=== PATIENT | female | born 2000 | race Caucasian/White ===

== ENCOUNTER 2023-05-31 12:31 | Emergency (ER) | payer BC, SELFPAY ==
[2023-05-31 12:40] VITALS: BP 128/70; PULSE 88; RESP 19; TEMP 36.9; O2SAT 98; BMI 46.5
--- NOTE | 2023-05-31 12:51 | EXP.UTC ---
Discharge Plan Disposition Patient Disposition: Home, Self-Care Condition: Good Prescriptions Prescriptions: New propranolol 80 mg tablet 80 mg PO DAILY Qty: 30 0RF fluconazole [Diflucan] 100 mg tablet 100 mg PO DAILY Qty: 1 0RF nystatin 100,000 unit/gram powder 1 applic topical BID Qty: 15 0RF Continued propranolol 80 mg capsule,extended release 24 hr 80 mg PO DAILY 30 Days Qty: 30 0RF Referrals Follow up/Referrals: Provider,Referral, MD [Primary Care Provider] - See instructions Activity Restrictions/Add. Instructions Additional Instructions/Restrictions: follow up with pcp meds as ordered Clinical Impressions Clinical Impression: Vaginal yeast infection, Skin yeast infection, Anxiety Stand Alone Forms Stand Alone Forms: Work/School Release Instructions Patient Instructions: DI for Yeast Infection-Skin, DI for Vaginal Yeast Infection, DI for Anxiety -- Adult Discharge ED Provider: Janette ([facility] [facility] [place] Stated complaint: anxiety, shaky Mode of Arrival: Ambulatory Source of Information: Patient Limitations: No Limitations Time Seen by Provider: 05/31/23 12:52 Description of Symptoms (Recalled from Triage Doc. by RN): PATIENT C/O RASH UNDER ABDOMEN AND POSSIBLE YEAST INFECTION X 2 DAYS HEENT Symptoms (Recalled from RN notes): No Resp Symptoms (Recalled from RN notes): No Skin Symptoms (Recalled from RN notes): Yes MS Symptoms (Recalled from RN notes): No Functional Status (Recalled from RN notes): WNL History of Present Illness Provider Complaint: 23 yr old female presents for a vaginal yeast infection- itching, no odor- yeast pedro abd skin folds, and needs her anxiety meds refilled Related Data Previous Rx's Medication Instructions Recorded fluconazole 100 mg tablet 100 mg PO DAILY #1 tab 05/31/23 (Diflucan) nystatin 100,000 unit/gram topical 1 applic topical BID #15 grams 05/31/23 powder propranolol 80 mg capsule,24 80 mg PO DAILY Anxiety 30 days #30 05/31/23 hr,extended release caps propranolol 80 mg tablet 80 mg PO DAILY #30 tabs 05/31/23 Allergies Allergy/AdvReac Type Severity Reaction Status Date / Time No Known Allergies Allergy Verified 05/31/23 12:51 Worker's Comp Is this a Worker's Comp case?: No [facility] Disclaimer: The information contained in this section may have been updated after the patient was seen, as this information can be updated by other users. 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) Smoking Status: Never smoker alcohol intake: never current occupational status: employed Travel in the last 8 weeks: None ROS Obtained: Yes All systems reviewed & no additional complaints except as documented Constitutional Constitutional: Reports system reviewed and no additional complaints, except as documented Eyes Eyes: Reports system reviewed and no additional complaints, except as documented ENT Ears, Nose, Mouth, and Throat: Reports system reviewed and no additional complaints, except as documented Cardiovascular Cardiovascular: Reports system reviewed and no additional complaints, except as documented Respiratory Respiratory: Reports system reviewed and no additional complaints, except as documented Musculoskeletal Musculoskeletal: Reports system reviewed and no additional complaints, except as documented Integumentary/Breasts Skin/Breast: Reports system reviewed and no additional complaints, except as documented, Reports as per HPI and Reports rash Neurologic Neurologic: Reports system reviewed and no additional complaints, except as documented Allergic/Immunologic Allergic/Immunologic: Reports system reviewed and no additional complaints, except as documented Physical Exam General General appearance: alert and in no apparent distre
[2023-05-31 12:54] VITALS: BP 128/70; PULSE 88; RESP 19; TEMP 36.9; O2SAT 98
== END 2023-05-31 13:08 | disposition home or self-care (01) ==
PROVIDERS: Emergency Provider Nurse Practitioner Family
DX: B37.31 Acute candidiasis of vulva and vagina (principal); B37.2 Candidiasis of skin and nail; F41.9 Anxiety disorder, unspecified; I10 Essential (primary) hypertension; F32.A Depression, unspecified
CPT/HCPCS: 99204; 99212; G0463

== ENCOUNTER 2023-06-23 23:04 | Emergency (ER) | payer BC, SELFPAY ==
[2023-06-23 23:19] VITALS: BP 143/68; PULSE 99; RESP 16; TEMP 36.6; O2SAT 99; BMI 47.9
[2023-06-23 23:36] LABS: Microscopic, Urine URINE MICROSCOPIC (MICROSCOPIC)
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
[2023-06-23 23:45] LABS: Appearance,Urine SL CLOUDY (Clear); Bilirubin,Urine Negative (Negative); Blood, Urine 3+ (Negative); Color,Urine STRAW (Yellow); Glucose,Urine (UA) Negative (Negative); Ketones,Urine Negative (Negative); Leukocyte Esterase,Urine 3+ (Negative); Nitrate,Urine Negative (Negative); Protein,Urine Negative (Negative); Specific Gravity, Urine <= 1.005 (1.005-1.030); Urobilinogen,Urine 0.2 EU/dl (0.2)
[2023-06-23 23:47] LABS: Urine Pregnancy, HCG Qual. Negative (Negative)
[2023-06-24 00:08] LABS: Bacteria,Urine 1+ /lpf; WBC,Urine TNTC #/hpf (0-3)
[2023-06-24 00:51] VITALS: BP 147/94; PULSE 76; RESP 16; TEMP 36.6; O2SAT 99
== END 2023-06-24 00:57 | disposition home or self-care (01) ==
PROVIDERS: Emergency Provider Emergency Medicine
DX: R10.2 Pelvic and perineal pain (principal); R30.0 Dysuria; F41.9 Anxiety disorder, unspecified; F32.A Depression, unspecified; I10 Essential (primary) hypertension; F17.200 Nicotine dependence, unspecified, uncomplicated
CPT/HCPCS: 81001; 81025; 87086; 87088; 87186; 99284

== ENCOUNTER 2023-06-25 17:06 | Emergency (ER) | payer BC, SELFPAY ==
--- NOTE | 2023-06-25 17:11 | HMH.EDGENADL ---
Discharge Plan Disposition Patient Disposition: Home, Self-Care Condition: Good Prescriptions Prescriptions: New ondansetron HCl 4 mg tablet 4 mg PO Q8H PRN (Reason: nausea and vomiting) 5 Days Qty: 30 0RF No Action propranolol 80 mg capsule,extended release 24 hr 80 mg PO DAILY 30 Days Qty: 30 0RF propranolol 80 mg tablet 80 mg PO DAILY Qty: 30 0RF fluconazole [Diflucan] 100 mg tablet 100 mg PO DAILY Qty: 1 0RF nystatin 100,000 unit/gram powder 1 applic topical BID Qty: 15 0RF nitrofurantoin monohyd/m-cryst [Macrobid] 100 mg capsule 100 mg PO BID 5 Days Qty: 10 0RF Rx Instructions: must administer with a meal/food Referrals Follow up/Referrals: Provider,Referral, MD [Primary Care Provider] - See instructions Activity Restrictions/Add. Instructions Additional Instructions/Restrictions: Please follow-up with your primary care provider. Please return to the emergency department if you develop any new or worsening symptoms or become concerned for your health. Please take Zofran as needed for nausea and vomiting at home. Clinical Impressions Clinical Impression: Nausea and vomiting, Painful menstrual periods, Heavy menstrual bleeding Stand Alone Forms Stand Alone Forms: Work/School Release Instructions Patient Instructions: DI for Urinary Tract Infection (UTI), DI for Urinary Tract Infection in Children Discharge ED Provider: Sourav Sawyer General Adult HPI General Chief complaint: Urogenital-Female Stated complaint: PCOS severe cramps heavy bleeding Time Seen by Provider: 06/25/23 17:11 History of Present Illness HPI narrative: 23-year-old female reported history of PCOS, endometriosis, recent diagnosis of UTI presents with symptoms consistent with patient's menstrual cycle. She reports onset of vaginal bleeding, blood through her pants at work, patient also has associated abdominal pain nausea vomiting and headache. She reports this is consistent with her baseline menstrual symptoms though is somewhat more severe. Reports no p.o. tolerance at this time. Reports that she has not taken any medication to help at this time. Last menstrual period approximately 1 month ago, patient is sexually active, denies concern for STDs. Patient was recently seen for UTI and was discharged with antibiotics. Related Data Previous Rx's Medication Instructions Recorded fluconazole 100 mg tablet 100 mg PO DAILY #1 tab 05/31/23 (Diflucan) nystatin 100,000 unit/gram topical 1 applic topical BID #15 grams 05/31/23 powder propranolol 80 mg capsule,24 80 mg PO DAILY Anxiety 30 days #30 05/31/23 hr,extended release caps propranolol 80 mg tablet 80 mg PO DAILY #30 tabs 05/31/23 nitrofurantoin 100 mg PO BID 5 days #10 caps 06/24/23 monohydrate/macrocrystals 100 mg capsule (Macrobid) ondansetron HCl 4 mg tablet 4 mg PO Q8H PRN nausea and 06/25/23 vomiting 5 days #30 tabs Allergies Allergy/AdvReac Type Severity Reaction Status Date / Time Penicillins Allergy Severe Anaphylaxis Verified 06/23/23 23:43 [facility] Disclaimer: The information contained in this section may have been updated after the patient was seen, as this information can be updated by other users. 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 Depression Hypertension Migraine Urinary tract infection Social History (Updated 05/31/23 @ 13:05 by [place] Savage ([facility]), MACHINE SPLITTER) Smoking Status: Current every day smoker alcohol intake: never current occupational status: employed Travel in the last 8 weeks: None ROS Obtained: Yes All systems reviewed & no additional complaints except as documented Physical Exam General General appearance: alert and anxious Head Head exam: atraumatic and normocephalic Eye Eye exam: Present normal appearance, PERRL and EOMI ENT ENT exam: Present normal oropharynx and normal external ear exam Neck Neck exam: Present nor
[2023-06-25 17:22] VITALS: BP 126/106; PULSE 45; RESP 16; TEMP 36.5; O2SAT 100; BMI 47.9
[2023-06-25 18:00] LABS: Basophils % 0.3 % (0.1-2.0); Eosinophils # 0.1 K/mm3 (0.0-0.4); Eosinophils % 0.7 % (0.1-12.0); Hematocrit 45.6 % (37.0-47.0); Hemoglobin 15.3 g/dL (12.2-16.2); Lymphocytes # 2.1 K/mm3 (0.7-4.5); Lymphocytes % 17.7 % (10-50); Mean Corpuscular HGB Conc 33.6 g/dL (31.8-35.4); Mean Corpuscular Hemoglobin 30.2 pg (27.0-31.2); Mean Corpuscular Volume 89.7 fl (81-99); Mean Platelet Volume 9.1 fl (7.4-10.4); Monocytes # 0.4 K/mm3 (0.1-1.0); Monocytes % 3.4 % (1.7-9.3); Neutrophils # 9.2 K/mm3 (1.8-7.8); Neutrophils % 77.8 % (37.0-80.0); Platelet Count 320 K/mm3 (142-424); Red Blood Count 5.09 M/mm3 (4.20-5.40); Red Cell Distribution Width 13.1 % (11.5-17.5); White Blood Count 11.8 K/mm3 (4.8-10.8)
[2023-06-25 18:01] VITALS: BP 126/81; PULSE 47; O2SAT 99
[2023-06-25 18:03] LABS: Chloride 101 mmol/L (98-107); Potassium 3.4 mmoL/L (3.5-5.1); Sodium 138 mmol/L (136-145)
[2023-06-25 18:06] LABS: Alanine Aminotransferase 35 U/L (12-78); Albumin Level 3.9 g/dl (3.5-5.0); Albumin/Globulin Ratio 1.3 (1.1-1.8); Alkaline Phosphatase 53 U/L (38-126); Anion Gap 12.4 mEq/L (5-15); Aspartate Amino Transferase 29 U/L (14-36); Bilirubin,Total 0.8 mg/dl (0.2-1.3); Blood Urea Nitrogen 8 mg/dl (7-17); Calcium 9.2 mg/dl (8.4-10.2); Carbon Dioxide 28 mmol/L (22.0-30.0); Creatinine Clearance Estimated 99 mL/min (50-200); Estimated Glomerular Filt Rate 90 ml/min (>60); GFR (African American) 109 ML/MIN (>60); Globulin 2.9 g/dL (1.3-3.2); Glucose 116 mg/dl (74-100); Total Protein,Serum 6.8 g/dl (6.3-8.2)
[2023-06-25 18:07] LABS: HCG Qualitative, Serum Negative (Negative)
[2023-06-25 19:13] VITALS: BP 106/79; PULSE 62; RESP 18; TEMP 36.7
== END 2023-06-25 19:20 | disposition home or self-care (01) ==
PROVIDERS: Emergency Provider Emergency Medicine
DX: N92.0 Excessive and frequent menstruation with regular cycle (principal); R10.9 Unspecified abdominal pain; R11.2 Nausea with vomiting, unspecified; R51.9 Headache, unspecified; E28.2 Polycystic ovarian syndrome; F41.9 Anxiety disorder, unspecified; F32.A Depression, unspecified; F17.200 Nicotine dependence, unspecified, uncomplicated
CPT/HCPCS: 80053; 84703; 85025; 96361; 96374; 96375; 99284; J2405

== ENCOUNTER 2023-07-04 15:03 | Emergency (ER) | payer BC, SELFPAY ==
[2023-07-04 15:04] VITALS: BP 109/69; PULSE 74; RESP 18; TEMP 36.6; O2SAT 97; BMI 46.1
--- NOTE | 2023-07-04 15:13 | EXP.UTC ---
Discharge Plan Disposition Patient Disposition: Home, Self-Care Prescriptions Prescriptions: New hydroxyzine HCl 50 mg tablet 50 mg PO TID Qty: 42 0RF No Action propranolol 80 mg capsule,extended release 24 hr 80 mg PO DAILY 30 Days Qty: 30 0RF propranolol 80 mg tablet 80 mg PO DAILY Qty: 30 0RF fluconazole [Diflucan] 100 mg tablet 100 mg PO DAILY Qty: 1 0RF nystatin 100,000 unit/gram powder 1 applic topical BID Qty: 15 0RF nitrofurantoin monohyd/m-cryst [Macrobid] 100 mg capsule 100 mg PO BID 5 Days Qty: 10 0RF Rx Instructions: must administer with a meal/food ondansetron HCl 4 mg tablet 4 mg PO Q8H PRN (Reason: nausea and vomiting) 5 Days Qty: 30 0RF Referrals Follow up/Referrals: Provider,Referral, MD [Primary Care Provider] - See instructions Activity Restrictions/Add. Instructions Additional Instructions/Restrictions: Take the medications as directed. Follow up with your regular doctor. We will give you a list of regular doctors, please call and get an appointment. GO TO THE ER FOR ANY WORSENING SYMPTOMS Clinical Impressions Clinical Impression: Anxiety Stand Alone Forms Stand Alone Forms: Work/School Release Discharge ED Provider: Ascencion Alcocer [facility] General Stated complaint: emotional, shakey, dizzy, vomiting Time Seen by Provider: 07/04/23 15:13 History of Present Illness Provider Complaint: She states that she has a long history of anxiety. She usually takes hydroxyzine 50 mg tid for this. She has recently moved here from [place]. Her pcp is back in [place]. She has not been able to f/u to get refills on this medication. She ran out yesterday and she has been very anxious since then. She has been on this dose of hydroxyzine for the past several years. She states that she does fine as long as she has her hydroxyzine to take. She denies any SI or HI. Related Data Previous Rx's Medication Instructions Recorded fluconazole 100 mg tablet 100 mg PO DAILY #1 tab 05/31/23 (Diflucan) nystatin 100,000 unit/gram topical 1 applic topical BID #15 grams 05/31/23 powder propranolol 80 mg capsule,24 80 mg PO DAILY Anxiety 30 days #30 05/31/23 hr,extended release caps propranolol 80 mg tablet 80 mg PO DAILY #30 tabs 05/31/23 nitrofurantoin 100 mg PO BID 5 days #10 caps 06/24/23 monohydrate/macrocrystals 100 mg capsule (Macrobid) ondansetron HCl 4 mg tablet 4 mg PO Q8H PRN nausea and 06/25/23 vomiting 5 days #30 tabs hydroxyzine HCl 50 mg tablet 50 mg PO TID #42 tabs 07/04/23 Allergies Allergy/AdvReac Type Severity Reaction Status Date / Time Penicillins Allergy Severe Anaphylaxis Verified 06/23/23 23:43 [facility] Disclaimer: The information contained in this section may have been updated after the patient was seen, as this information can be updated by other users. 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 , [employer]) Anxiety Depression Hypertension Migraine Urinary tract infection Social History (Updated 05/31/23 @ 13:05 by [place] Savage ([facility] [employer]) Smoking Status: Current every day smoker alcohol intake: never current occupational status: employed Travel in the last 8 weeks: None ROS Obtained: Yes All systems reviewed & no additional complaints except as documented Constitutional Constitutional: Denies chills and Denies fever(s) Eyes Eyes: Denies eye discharge ENT Ears, Nose, Mouth, and Throat: Denies dizziness, Denies otalgia and Denies sore throat Cardiovascular Cardiovascular: Denies chest pain Respiratory Respiratory: Denies shortness of breath, Denies chest congestion, Denies cough, Denies stridor and Denies wheezing Gastrointestinal Gastrointestingal: Denies nausea or vomiting Musculoskeletal Musculoskeletal: Reports system reviewed and no additional complaints, except as documented and Denies arthralgias Integumentary/Breasts Skin/Breast: Denies rash Neurologic Neur
[2023-07-04 15:59] VITALS: BP 109/69; PULSE 74; RESP 18; TEMP 36.6; O2SAT 97
== END 2023-07-04 16:00 | disposition home or self-care (01) ==
PROVIDERS: Emergency Provider Nurse Practitioner Family
DX: F41.1 Generalized anxiety disorder (principal); F17.210 Nicotine dependence, cigarettes, uncomplicated; I10 Essential (primary) hypertension; F32.A Depression, unspecified
CPT/HCPCS: 99212; 99214; G0463

== ENCOUNTER 2023-07-06 07:09 | Emergency (ER) | payer BC, SELFPAY ==
[2023-07-06 07:11] VITALS: BP 114/79; PULSE 75; RESP 18; TEMP 36.7; O2SAT 99; BMI 46.0
[2023-07-06 07:28] LABS: Microscopic, Urine URINE MICROSCOPIC (MICROSCOPIC)
[2023-07-06 07:30] LABS: Appearance,Urine CLOUDY (Clear); Bilirubin,Urine Negative (Negative); Blood, Urine 3+ (Negative); Color,Urine AMBER (Yellow); Glucose,Urine (UA) Negative (Negative); Ketones,Urine Negative (Negative); Leukocyte Esterase,Urine 2+ (Negative); Nitrate,Urine Negative (Negative); Protein,Urine 2+ (Negative); Specific Gravity, Urine >= 1.030 (1.005-1.030); Urobilinogen,Urine 0.2 EU/dl (0.2)
[2023-07-06 07:36] LABS: Urine Pregnancy, HCG Qual. Negative (Negative)
--- NOTE | 2023-07-06 07:42 | HMH.EDGENADL ---
Discharge Plan Disposition Patient Disposition: Home, Self-Care Prescriptions Prescriptions: New cefdinir 300 mg capsule 300 mg PO BID 7 Days Qty: 14 0RF No Action propranolol 80 mg capsule,extended release 24 hr 80 mg PO DAILY 30 Days Qty: 30 0RF propranolol 80 mg tablet 80 mg PO DAILY Qty: 30 0RF fluconazole [Diflucan] 100 mg tablet 100 mg PO DAILY Qty: 1 0RF nystatin 100,000 unit/gram powder 1 applic topical BID Qty: 15 0RF nitrofurantoin monohyd/m-cryst [Macrobid] 100 mg capsule 100 mg PO BID 5 Days Qty: 10 0RF Rx Instructions: must administer with a meal/food ondansetron HCl 4 mg tablet 4 mg PO Q8H PRN (Reason: nausea and vomiting) 5 Days Qty: 30 0RF hydroxyzine HCl 50 mg tablet 50 mg PO TID Qty: 42 0RF Referrals Follow up/Referrals: Provider,Referral, MD [Primary Care Provider] - See instructions Activity Restrictions/Add. Instructions Additional Instructions/Restrictions: Please follow-up with primary care doctor in 2 to 3 days to make sure that you are improving. Return with any high fevers or worsening symptoms etc. Clinical Impressions Clinical Impression: Urinary tract infection Instructions Patient Instructions: DI for Urinary Tract Infection (UTI), DI for Urinary Tract Infection in Children Discharge ED Provider: Sourav Sawyer General Adult HPI General Chief complaint: Urogenital-Female Stated complaint: poss Uti Time Seen by Provider: 07/06/23 07:34 Mode of Arrival: Ambulatory Source of Information: Patient Limitations: No Limitations Description of Symptoms (Recalled from ER Triage Doc. by RN): pt presents to ED c/o uti. pt states she has had a UTI recently and finished Macrobid but feels as if her UTI didn't go away and is worse. pt reports pain in low-mid back. History of Present Illness HPI narrative: 23-year-old female here with dysuria and hematuria for the last 12 days. She was recently diagnosed with a urinary tract infection which grew Citrobacter which was largely pansensitive on her susceptibilities. She states she was given nitrofurantoin and she took this for 5 days and did not have any significant improvement in her symptoms. She denies any fevers still is having some hematuria. No flank pain. Related Data Previous Rx's Medication Instructions Recorded fluconazole 100 mg tablet 100 mg PO DAILY #1 tab 05/31/23 (Diflucan) nystatin 100,000 unit/gram topical 1 applic topical BID #15 grams 05/31/23 powder propranolol 80 mg capsule,24 80 mg PO DAILY Anxiety 30 days #30 05/31/23 hr,extended release caps propranolol 80 mg tablet 80 mg PO DAILY #30 tabs 05/31/23 nitrofurantoin 100 mg PO BID 5 days #10 caps 06/24/23 monohydrate/macrocrystals 100 mg capsule (Macrobid) ondansetron HCl 4 mg tablet 4 mg PO Q8H PRN nausea and 06/25/23 vomiting 5 days #30 tabs hydroxyzine HCl 50 mg tablet 50 mg PO TID #42 tabs 07/04/23 cefdinir 300 mg capsule 300 mg PO BID 7 days #14 caps 07/06/23 Allergies Allergy/AdvReac Type Severity Reaction Status Date / Time Penicillins Allergy Severe Anaphylaxis Verified 06/23/23 23:43 [facility] Disclaimer: The information contained in this section may have been updated after the patient was seen, as this information can be updated by other users. 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
[2023-07-06 07:43] VITALS: BP 96/57; PULSE 61; O2SAT 98
[2023-07-06 07:45] LABS: Basophils # 0.1 K/mm3 (0-0.2); Basophils % 0.9 % (0.1-2.0); Eosinophils # 0.1 K/mm3 (0.0-0.4); Hematocrit 46.4 % (37.0-47.0); Hemoglobin 15.5 g/dL (12.2-16.2); Lymphocytes # 4.4 K/mm3 (0.7-4.5); Mean Corpuscular HGB Conc 33.4 g/dL (31.8-35.4); Monocytes # 0.6 K/mm3 (0.1-1.0); Monocytes % 6.2 % (1.7-9.3); Neutrophils % 48.8 % (37.0-80.0); Platelet Count 324 K/mm3 (142-424); Red Blood Count 5.16 M/mm3 (4.20-5.40); Red Cell Distribution Width 13.1 % (11.5-17.5); White Blood Count 10.3 K/mm3 (4.8-10.8)
[2023-07-06 07:49] LABS: Bacteria,Urine 2+ /lpf; RBC,Urine TNTC #/hpf (0-3); WBC,Urine 50-100 #/hpf (0-3)
[2023-07-06 07:50] LABS: Chloride 105 mmol/L (98-107); Sodium 140 mmol/L (136-145)
[2023-07-06 07:51] LABS: Potassium 3.5 mmoL/L (3.5-5.1)
[2023-07-06 07:53] LABS: Blood Urea Nitrogen 14 mg/dl (7-17); Creatinine Clearance Estimated 88 mL/min (50-200); Estimated Glomerular Filt Rate 78 ml/min (>60); GFR (African American) 95 ML/MIN (>60)
[2023-07-06 07:54] LABS: Anion Gap 11.5 mEq/L (5-15); Calcium 9.8 mg/dl (8.4-10.2); Carbon Dioxide 27 mmol/L (22.0-30.0); Glucose 82 mg/dl (74-100)
[2023-07-06 08:06] VITALS: BP 114/79; PULSE 79; RESP 18; TEMP 36.9; O2SAT 99
[2023-07-09 08:58] LABS: Neisseria gonorrhoeae, NAA Negative (Negative)
== END 2023-07-06 08:05 | disposition home or self-care (01) ==
PROVIDERS: Student in an Organized Health Care Education/Training Program; Emergency Provider Emergency Medicine
DX: N39.0 Urinary tract infection, site not specified (principal); R31.9 Hematuria, unspecified; F41.9 Anxiety disorder, unspecified; F32.A Depression, unspecified; I10 Essential (primary) hypertension; F17.200 Nicotine dependence, unspecified, uncomplicated
CPT/HCPCS: 80048; 81001; 81025; 85025; 87086; 87088; 87186; 87491; 87591; 99285

== ENCOUNTER 2023-07-13 09:32 | Emergency (ER) | payer BC, SELFPAY ==
[2023-07-13 09:41] VITALS: BP 140/77; PULSE 97; RESP 16; TEMP 36.8; O2SAT 97; BMI 38.2
[2023-07-13 09:47] LABS: Microscopic, Urine URINE MICROSCOPIC (MICROSCOPIC)
[2023-07-13 09:55] LABS: Appearance,Urine Clear (Clear); Color,Urine Yellow (Yellow); Urine Pregnancy, HCG Qual. Negative (Negative)
[2023-07-13 09:56] LABS: Bilirubin,Urine Negative (Negative); Blood, Urine Negative (Negative); Glucose,Urine (UA) Negative (Negative); Ketones,Urine Negative (Negative); Leukocyte Esterase,Urine 1+ (Negative); Nitrate,Urine Negative (Negative); PH,Urine 6.5 (5.0-8.5); Protein,Urine Negative (Negative); Specific Gravity, Urine 1.015 (1.005-1.030); Urobilinogen,Urine 0.2 EU/dl (0.2)
[2023-07-13 10:10] LABS: Bacteria,Urine Trace /lpf; Squamous Epithelial Cell,Urine Occasional #/hpf (0-5)
--- NOTE | 2023-07-13 10:10 | HMH.EDGENADL ---
Discharge Plan Disposition Patient Disposition: Home, Self-Care Condition: Good Prescriptions Prescriptions: New cefdinir 300 mg capsule 300 mg PO BID 5 Days Qty: 10 0RF No Action cefdinir 300 mg capsule 300 mg PO BID 7 Days Qty: 14 0RF phenazopyridine [Pyridium] 200 mg tablet 200 mg PO Q8H PRN (Reason: pain) 2 Days Qty: 6 0RF propranolol 80 mg capsule,extended release 24 hr 80 mg PO DAILY 30 Days Qty: 30 0RF propranolol 80 mg tablet 80 mg PO DAILY Qty: 30 0RF fluconazole [Diflucan] 100 mg tablet 100 mg PO DAILY Qty: 1 0RF nystatin 100,000 unit/gram powder 1 applic topical BID Qty: 15 0RF nitrofurantoin monohyd/m-cryst [Macrobid] 100 mg capsule 100 mg PO BID 5 Days Qty: 10 0RF Rx Instructions: must administer with a meal/food ondansetron HCl 4 mg tablet 4 mg PO Q8H PRN (Reason: nausea and vomiting) 5 Days Qty: 30 0RF hydroxyzine HCl 50 mg tablet 50 mg PO TID Qty: 42 0RF Referrals Follow up/Referrals: Provider,Referral, MD [Primary Care Provider] - See instructions Activity Restrictions/Add. Instructions Additional Instructions/Restrictions: The urinary tract infection that you have is susceptible to the antibiotics you were previously prescribed, however I believe you need a longer course of it. You have been prescribed an extended course. Take these as directed, do not skip doses, do not stop taking it early. Continue drinking plenty of water. Take all other home medications as prescribed. Your STD testing from your last visit was necessary, we did not repeat it today. Follow-up with your primary care physician in 3 days for reevaluation. Return to the emergency department with new or worsening symptoms. Clinical Impressions Clinical Impression: UTI (urinary tract infection) Qualifiers: Urinary tract infection type: acute cystitis Hematuria presence: without hematuria Qualified Code(s): N30.00 - Acute cystitis without hematuria Instructions Patient Instructions: DI for Urinary Tract Infection (UTI) Discharge ED Provider: Nadya Pinto Adult [facility] General Chief complaint: Urogenital-Female Stated complaint: possible uti Time Seen by Provider: 07/13/23 09:57 Mode of Arrival: Ambulatory Source of Information: Patient Limitations: No Limitations Description of Symptoms (Recalled from ER Triage Doc. by RN): 23 yo F presents to ED with c/o UTI. pt reports symptoms ongoing for 1+ month. pt reports being placed ondifferent abx,unsure of the names, and finishing those courses. but pt reports pain wont go away. pt also asking for urine test due to missed period History of Present Illness HPI narrative: This 23-year-old female with a history of anxiety and dysmenorrhea presents to the emergency department with concerns of urinary tract infection symptoms. She states she has had symptoms since approximately 24 June. She states she has been on 2 different antibiotics and felt better while on the last antibiotic, but now that she has stopped it feels like her symptoms are returning. She complains of dysuria. She also has low back pain. She is not having fevers, nausea, or vomiting at this time. She states that she does not have any pelvic pain. No vaginal discharge. When asked about STDs, she states she would like to be tested but does not want empiric treatment and would rather wait for the test to come back. Related Data Previous Rx's Medication Instructions Recorded fluconazole 100 mg tablet 100 mg PO DAILY #1 tab 05/31/23 (Diflucan) nystatin 100,000 unit/gram topical 1 applic topical BID #15 grams 05/31/23 powder propranolol 80 mg capsule,24 80 mg PO DAILY Anxiety 30 days #30 05/31/23 hr,extended release caps propranolol 80 mg tablet 80 mg PO DAILY #30 tabs 05/31/23 nitrofurantoin 100 mg PO BID 5 days #10 caps 06/24/23 monohydrate/macrocrystals 100 mg capsule (Macrobid) ondansetron HCl 4 mg tablet 4 mg PO Q8H PRN nausea a
[2023-07-13 11:11] VITALS: BP 132/63; PULSE 77; RESP 16; TEMP 36.7
== END 2023-07-13 11:11 | disposition home or self-care (01) ==
PROVIDERS: Emergency Provider Emergency Medicine
DX: N30.00 Acute cystitis without hematuria (principal); F41.9 Anxiety disorder, unspecified; F32.A Depression, unspecified; I10 Essential (primary) hypertension; F17.200 Nicotine dependence, unspecified, uncomplicated
CPT/HCPCS: 81001; 81025; 87086; 99284

== ENCOUNTER 2023-07-16 21:59 | Emergency (ER) | payer BC, SELFPAY ==
[2023-07-16 22:01] VITALS: BP 122/83; PULSE 97; RESP 18; TEMP 36.8; O2SAT 100; BMI 46.0
--- NOTE | 2023-07-16 22:31 | HMH.EDGENADL ---
Discharge Plan Disposition Patient Disposition: Home, Self-Care Prescriptions Prescriptions: New fluconazole 150 mg tablet 150 mg PO ONCE 1 Days Qty: 2 0RF Rx Instructions: repeat in 72 hours if not improving No Action cefdinir 300 mg capsule 300 mg PO BID 7 Days Qty: 14 0RF phenazopyridine [Pyridium] 200 mg tablet 200 mg PO Q8H PRN (Reason: pain) 2 Days Qty: 6 0RF propranolol 80 mg capsule,extended release 24 hr 80 mg PO DAILY 30 Days Qty: 30 0RF propranolol 80 mg tablet 80 mg PO DAILY Qty: 30 0RF fluconazole [Diflucan] 100 mg tablet 100 mg PO DAILY Qty: 1 0RF nystatin 100,000 unit/gram powder 1 applic topical BID Qty: 15 0RF nitrofurantoin monohyd/m-cryst [Macrobid] 100 mg capsule 100 mg PO BID 5 Days Qty: 10 0RF Rx Instructions: must administer with a meal/food ondansetron HCl 4 mg tablet 4 mg PO Q8H PRN (Reason: nausea and vomiting) 5 Days Qty: 30 0RF hydroxyzine HCl 50 mg tablet 50 mg PO TID Qty: 42 0RF cefdinir 300 mg capsule 300 mg PO BID 5 Days Qty: 10 0RF Referrals Follow up/Referrals: Provider,Referral, MD [Primary Care Provider] - See instructions Activity Restrictions/Add. Instructions Additional Instructions/Restrictions: You were given a dose of fluconazole in the emergency department for a yeast infection following recent UTI treatment with antibiotics. You have been given a prescription of fluconazole which can be taken 72 hours after your emergency department visit if you are not improving and you may repeat the dose x172 hours later. Return with any worsening symptoms or concerns. Clinical Impressions Clinical Impression: Candidal vaginitis Instructions Patient Instructions: DI for Urinary Tract Infection (UTI), DI for Urinary Tract Infection in Children Discharge ED Provider: Sophia Mast General Adult HPI General Chief complaint: Urogenital-Female Stated complaint: lower abd pain, vaginal discharge Time Seen by Provider: 07/16/23 22:24 Mode of Arrival: Ambulatory Source of Information: Patient Limitations: No Limitations Description of Symptoms (Recalled from ER Triage Doc. by RN): pt reports being on antibiotics for UTI, states she believes she has yeast infection, complains of burning and itching with white thick discharge in her vaginal area History of Present Illness HPI narrative: 23-year-old female recently treated with antibiotics for urinary tract infection though symptoms have completely resolved presents today with a yeast infection. States she had this many times before and that she has thick itchy discharge and is certain that this is what this is. Related Data Previous Rx's Medication Instructions Recorded fluconazole 100 mg tablet 100 mg PO DAILY #1 tab 05/31/23 (Diflucan) nystatin 100,000 unit/gram topical 1 applic topical BID #15 grams 05/31/23 powder propranolol 80 mg capsule,24 80 mg PO DAILY Anxiety 30 days #30 05/31/23 hr,extended release caps propranolol 80 mg tablet 80 mg PO DAILY #30 tabs 05/31/23 nitrofurantoin 100 mg PO BID 5 days #10 caps 06/24/23 monohydrate/macrocrystals 100 mg capsule (Macrobid) ondansetron HCl 4 mg tablet 4 mg PO Q8H PRN nausea and 06/25/23 vomiting 5 days #30 tabs hydroxyzine HCl 50 mg tablet 50 mg PO TID #42 tabs 07/04/23 cefdinir 300 mg capsule 300 mg PO BID 7 days #14 caps 07/06/23 phenazopyridine 200 mg tablet 200 mg PO Q8H PRN pain 2 days #6 07/06/23 (Pyridium) tabs cefdinir 300 mg capsule 300 mg PO BID 5 days #10 caps 07/13/23 fluconazole 150 mg tablet 150 mg PO ONCE 1 day #2 tabs 07/16/23 Allergies Allergy/AdvReac Type Severity Reaction Status Date / Time Penicillins Allergy Severe Anaphylaxis Verified 06/23/23 23:43 [facility] Disclaimer: The information contained in this section may have been updated after the patient was seen, as this information can be updated by other users. 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 (Reviewed 05/31/23 @ 12:54 by Eug
[2023-07-16 22:41] VITALS: BP 122/83; PULSE 97; RESP 18; TEMP 36.8; O2SAT 100
== END 2023-07-16 22:41 | disposition home or self-care (01) ==
PROVIDERS: Emergency Provider Student in an Organized Health Care Education/Training Program
DX: B37.31 Acute candidiasis of vulva and vagina (principal); F41.9 Anxiety disorder, unspecified; F32.A Depression, unspecified; I10 Essential (primary) hypertension; F17.200 Nicotine dependence, unspecified, uncomplicated
CPT/HCPCS: 99283

== ENCOUNTER 2023-07-20 09:40 | Emergency (ER) | payer BC, SELFPAY ==
[2023-07-20 10:04] LABS: Microscopic, Urine URINE MICROSCOPIC (MICROSCOPIC)
[2023-07-20 10:06] LABS: Appearance,Urine SL CLOUDY (Clear); Bilirubin,Urine Negative (Negative); Blood, Urine 3+ (Negative); Color,Urine YELLOW (Yellow); Glucose,Urine (UA) Negative (Negative); Ketones,Urine Negative (Negative); Leukocyte Esterase,Urine 3+ (Negative); Nitrate,Urine Negative (Negative); PH,Urine 6.5 (5.0-8.5); Protein,Urine Negative (Negative); Specific Gravity, Urine <= 1.005 (1.005-1.030); Urobilinogen,Urine 0.2 EU/dl (0.2)
[2023-07-20 10:16] LABS: WBC,Urine 50-100 #/hpf (0-3)
[2023-07-20 10:17] LABS: Bacteria,Urine 1+ /lpf
[2023-07-20 10:20] VITALS: BP 115/84; PULSE 68; RESP 18; TEMP 36.8; O2SAT 97; BMI 47.0
--- NOTE | 2023-07-20 10:30 | EXP.UTC ---
Discharge Plan Disposition Patient Disposition: Home, Self-Care Condition: Good Prescriptions Prescriptions: New phenazopyridine [Pyridium] 200 mg tablet 200 mg PO Q8H 2 Days Qty: 6 0RF ciprofloxacin HCl [Cipro] 500 mg tablet 500 mg PO BID 7 Days Qty: 14 0RF No Action cefdinir 300 mg capsule 300 mg PO BID 7 Days Qty: 14 0RF phenazopyridine [Pyridium] 200 mg tablet 200 mg PO Q8H PRN (Reason: pain) 2 Days Qty: 6 0RF fluconazole 150 mg tablet 150 mg PO ONCE 1 Days Qty: 2 0RF Rx Instructions: repeat in 72 hours if not improving propranolol 80 mg capsule,extended release 24 hr 80 mg PO DAILY 30 Days Qty: 30 0RF propranolol 80 mg tablet 80 mg PO DAILY Qty: 30 0RF fluconazole [Diflucan] 100 mg tablet 100 mg PO DAILY Qty: 1 0RF nystatin 100,000 unit/gram powder 1 applic topical BID Qty: 15 0RF nitrofurantoin monohyd/m-cryst [Macrobid] 100 mg capsule 100 mg PO BID 5 Days Qty: 10 0RF Rx Instructions: must administer with a meal/food ondansetron HCl 4 mg tablet 4 mg PO Q8H PRN (Reason: nausea and vomiting) 5 Days Qty: 30 0RF hydroxyzine HCl 50 mg tablet 50 mg PO TID Qty: 42 0RF cefdinir 300 mg capsule 300 mg PO BID 5 Days Qty: 10 0RF Referrals Follow up/Referrals: Provider,Referral, MD [Primary Care Provider] - See instructions Activity Restrictions/Add. Instructions Additional Instructions/Restrictions: Drink plenty of fluids. Take tylenol or ibuprofen for pain or fever. Take the medications as directed. Follow up with your regular doctor. GO TO THE ER FOR ANY WORSENING SYMPTOMS The pyridium will make your urine turn orange, this is an expected side effect. It will stain your clothes if it comes into contact with them. We will culture the urine. That will tell what bacteria is causing your infection and which antibiotics will treat it best. Sometimes the first antibiotic we prescribe turns out to not work against different bacteria. So, make sure you follow up within 3 days if you are not getting better. Clinical Impressions Clinical Impression: Urinary tract infection Instructions Patient Instructions: Urinary Tract Infection, Urine Culture, Phenazopyridine Discharge ED Provider: Ascencion Alcocer [facility] [place] H[place] General Stated complaint: burning when urinates, abd pain Time Seen by Provider: 07/20/23 09:47 History of Present Illness Provider Complaint: She states that for the past 3 days she has had worsening low back pain, dysuria, and urinary frequency. Over the past few months she has been getting uti's very frequently. Related Data Previous Rx's Medication Instructions Recorded fluconazole 100 mg tablet 100 mg PO DAILY #1 tab 05/31/23 (Diflucan) nystatin 100,000 unit/gram topical 1 applic topical BID #15 grams 05/31/23 powder propranolol 80 mg capsule,24 80 mg PO DAILY Anxiety 30 days #30 05/31/23 hr,extended release caps propranolol 80 mg tablet 80 mg PO DAILY #30 tabs 05/31/23 nitrofurantoin 100 mg PO BID 5 days #10 caps 06/24/23 monohydrate/macrocrystals 100 mg capsule (Macrobid) ondansetron HCl 4 mg tablet 4 mg PO Q8H PRN nausea and 06/25/23 vomiting 5 days #30 tabs hydroxyzine HCl 50 mg tablet 50 mg PO TID #42 tabs 07/04/23 cefdinir 300 mg capsule 300 mg PO BID 7 days #14 caps 07/06/23 phenazopyridine 200 mg tablet 200 mg PO Q8H PRN pain 2 days #6 07/06/23 (Pyridium) tabs cefdinir 300 mg capsule 300 mg PO BID 5 days #10 caps 07/13/23 fluconazole 150 mg tablet 150 mg PO ONCE 1 day #2 tabs 07/16/23 ciprofloxacin HCl 500 mg tablet 500 mg PO BID 7 days #14 tabs 07/20/23 (Cipro) phenazopyridine 200 mg tablet 200 mg PO Q8H 2 days #6 tabs 07/20/23 (Pyridium) Allergies Allergy/AdvReac Type Severity Reaction Status Date / Time Penicillins Allergy Severe Anaphylaxis Verified 07/20/23 10:44 [facility] Disclaimer: The information contained in this section may have been updated after the
[2023-07-20 11:02] VITALS: BP 115/84; PULSE 68; RESP 18; TEMP 36.8; O2SAT 97
== END 2023-07-20 11:02 | disposition home or self-care (01) ==
LOC: ER 09:44 → UTC 09:47
PROVIDERS: Emergency Provider Nurse Practitioner Family
DX: N39.0 Urinary tract infection, site not specified (principal); M54.59 Other low back pain; F17.210 Nicotine dependence, cigarettes, uncomplicated; I10 Essential (primary) hypertension; F41.9 Anxiety disorder, unspecified; F32.A Depression, unspecified
CPT/HCPCS: 81001; 87086; 99212; 99214; G0463

== ENCOUNTER 2023-09-24 23:22 | Emergency (ER) | payer BC, SELFPAY ==
[2023-09-24 23:24] VITALS: BP 133/85; PULSE 96; RESP 16; TEMP 36.4; O2SAT 97; BMI 49.9
[2023-09-24 23:28] VITALS: BMI 49.9
[2023-09-24 23:41] LABS: Coronavirus 19, PCR Not Detected (NotDetected); Influenza A, PCR Not Detected (NotDetected); Influenza B, PCR Not Detected (NotDetected)
[2023-09-24 23:52] LABS: Strep Scrn Group A (Rapid) Negative (Negative)
--- NOTE | 2023-09-25 00:04 | HMH.EDGENADL ---
Discharge Plan Disposition Patient Disposition: Home, Self-Care Condition: Good Prescriptions Prescriptions: New Zyrtec 10 mg capsule 10 mg PO DAILY Qty: 30 0RF [id number] [Bromfed DM] 2-30-10 mg/5 mL syrup 5 ml PO Q6H PRN (Reason: allergy symptoms) Qty: 118 0RF ondansetron 4 mg tablet,disintegrating 4 mg PO Q8H PRN (Reason: nausea and vomiting) 5 Days Qty: 12 0RF No Action propranolol 80 mg capsule,extended release 24 hr 80 mg PO DAILY 30 Days Qty: 30 0RF hydroxyzine HCl 50 mg tablet 50 mg PO TID Qty: 42 0RF Referrals Follow up/Referrals: Provider,Referral, MD [Primary Care Provider] - See instructions Activity Restrictions/Add. Instructions Additional Instructions/Restrictions: You were evaluated in the emergency department today. 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 Also use the nasal spray provided to you twice a day. Follow-up with your primary care provider over the next week for reassessment. Hydrate is much as possible. Take up to 1000 mg of Tylenol every 6 hours as needed, not to exceed 3000 mg in a day. You may also take 800 mg of ibuprofen every 6-8 hours as needed for symptoms. Return to the emergency department for new or worsening symptoms. Clinical Impressions Clinical Impression: Viral URI with cough Stand Alone Forms Stand Alone Forms: Work/School Release Instructions Patient Instructions: DI for Viral Upper Respiratory Infection -- Adult Discharge ED Provider: Jeny Rivera General Adult HPI General Chief complaint: Upper Respiratory Infection Stated complaint: Difficulty breathing Time Seen by Provider: 09/24/23 23:30 Mode of Arrival: Ambulatory Source of Information: Patient Limitations: No Limitations Description of Symptoms (Recalled from ER Triage Doc. by RN): pt c/o congestion,sore throat, body aches that started yesterday. History of Present Illness HPI narrative: This patient is a 23-year-old female who reports a history of tachycardia presenting to the emergency department for evaluation with concern for sore throat, nasal congestion, cough, body aches, nausea, and diarrhea that started yesterday. She also complains of bilateral ear pain, right greater than left. She notes that she has taken ibuprofen with minimal improvement. No other medications or interventions tried at home. No other concerns noted at this time. No significant abdominal pain, vomiting, or other issues. Related Data Previous Rx's Medication Instructions Recorded propranolol 80 mg capsule,24 80 mg PO DAILY Anxiety 30 days #30 05/31/23 hr,extended release caps hydroxyzine HCl 50 mg tablet 50 mg PO TID #42 tabs 07/04/23 [id number]-[id number]-[id number] 5 ml PO Q6H PRN allergy symptoms 09/25/23 2 mg-30 mg-10 mg/5 mL oral syrup #118 mL (Bromfed DM) cetirizine 10 mg capsule (Zyrtec) 10 mg PO DAILY #30 caps 09/25/23 ondansetron 4 mg disintegrating 4 mg PO Q8H PRN nausea and 09/25/23 tablet vomiting 5 days #12 tabs Allergies Allergy/AdvReac Type Severity Reaction Status Date / Time Penicillins Allergy Severe Anaphylaxis Verified 07/20/23 10:44 [facility] Disclaimer: The information contained in this section may have been updated after the patient was seen, as this information can be updated by other users. 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 Anxiety Depression Hypertension Migraine Urinary tract infection Social History Smoking Status: Current every day smoker alcohol intake: never current occupational status: employed Travel in the last 8 weeks: None ROS Obtained: Yes All systems reviewed & no additional complaints except as documented Physical Exam General General appearance: alert and in no apparent distress Head Head exam: atraumatic and normocephalic Eye Eye exam: Present normal appearance, PERRL and EOMI
[2023-09-25 00:43] VITALS: BP 128/74; PULSE 87; RESP 16; TEMP 36.4; O2SAT 97
== END 2023-09-25 | disposition home or self-care (01) ==
PROVIDERS: Emergency Provider Emergency Medicine
DX: R06.02 Shortness of breath (principal); R05.9 Cough, unspecified; J06.9 Acute upper respiratory infection, unspecified; R09.81 Nasal congestion; R07.0 Pain in throat; R11.0 Nausea; R19.7 Diarrhea, unspecified; H92.03 Otalgia, bilateral; B34.9 Viral infection, unspecified; F17.210 Nicotine dependence, cigarettes, uncomplicated; I10 Essential (primary) hypertension
CPT/HCPCS: 87430; 87636; 96372; 99283

== ENCOUNTER 2023-10-11 16:43 | Emergency (ER) | payer BC, SELFPAY ==
[2023-10-11 16:44] VITALS: BP 139/96; PULSE 91; RESP 18; TEMP 36.6; O2SAT 98; BMI 48.1
[2023-10-11 17:05] LABS: Apearance,Urine Clear (Clear); Bilirubin,Urine Negative (Negative); Blood, Urine 3+ (Negative); Color,Urine Yellow (Yellow); Glucose,Urine (UA) Negative (Negative); Ketones,Urine Negative (Negative); PH,Urine 5.5 (5.0-8.5); Protein,Urine Negative (Negative); Specific Gravity, Urine 1.005 (1.005-1.030); UTC Leukocyte Esterase,Urine 1+ (Negative); UTC Nitrate,Urine Negative (Negative); Urobilinogen,Urine 0.2 EU/dl (0.2)
[2023-10-11 17:25] LABS: Urine Pregnancy, HCG Qual. Negative (Negative)
--- NOTE | 2023-10-11 17:35 | EXP.UTC ---
Discharge Plan Disposition Patient Disposition: Home, Self-Care Condition: Good Prescriptions Prescriptions: New phenazopyridine [Pyridium] 100 mg tablet 100 mg PO TID PRN (Reason: pain) 2 Days Qty: 6 0RF cefdinir 300 mg capsule 300 mg PO BID Qty: 20 0RF propranolol 80 mg tablet 80 mg PO DAILY Qty: 30 0RF hydroxyzine HCl 50 mg tablet 50 mg PO TID PRN (Reason: anxiety) 14 Days Qty: 42 0RF Continued propranolol 80 mg capsule,extended release 24 hr 80 mg PO DAILY 30 Days Qty: 30 0RF hydroxyzine HCl 50 mg tablet 50 mg PO TID Qty: 42 0RF No Action Zyrtec 10 mg capsule 10 mg PO DAILY Qty: 30 0RF Referrals Follow up/Referrals: Provider,Referral, MD [Primary Care Provider] - See instructions Activity Restrictions/Add. Instructions Additional Instructions/Restrictions: Increase fluids, water and not soda or tea. Can drink cranberry juice or cranberry extract. Wipe front to back Wear cotton underwear Empty bladder after intercourse Start antibiotics immediately and make sure you take the full course although you may start to see improvement over the next 48 hours. You can eat yogurt or take probiotics to decrease diarrhea or yeast infection caused by the antibiotic Be sure to follow-up anytime for new or worsening symptoms in 48 hours for wound urine culture results be sure to let you PCP no recent urine for culture so they can request records and ensure that you have appropriate antibiotic if you are not getting better or getting worse. If symptoms worsen or do not improve return or be seen in the ER. Follow-up with primary care this week. 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 General Stated complaint: blood in urine,painful Mode of Arrival: Ambulatory Source of Information: Patient Limitations: No Limitations Time Seen by Provider: 10/11/23 17:35 Description of Symptoms (Recalled from Triage Doc. by RN): burning with urination HEENT Symptoms (Recalled from RN notes): Yes Resp Symptoms (Recalled from RN notes): No Skin Symptoms (Recalled from RN notes): No MS Symptoms (Recalled from RN notes): No Functional Status (Recalled from RN notes): n/a History of Present Illness Provider Complaint: 23 yr old female presents for burning with urination and needs her meds refilled of anxiety, does not have a pcp yet Related Data Previous Rx's Medication Instructions Recorded propranolol 80 mg capsule,24 80 mg PO DAILY Anxiety 30 days #30 05/31/23 hr,extended release caps hydroxyzine HCl 50 mg tablet 50 mg PO TID #42 tabs 07/04/23 cetirizine 10 mg capsule (Zyrtec) 10 mg PO DAILY #30 caps 09/25/23 cefdinir 300 mg capsule 300 mg PO BID #20 caps 10/11/23 hydroxyzine HCl 50 mg tablet 50 mg PO TID PRN anxiety 14 days 10/11/23 #42 tabs phenazopyridine 100 mg tablet 100 mg PO TID PRN pain 2 days #6 10/11/23 (Pyridium) tabs propranolol 80 mg tablet 80 mg PO DAILY #30 tabs 10/11/23 Allergies Allergy/AdvReac Type Severity Reaction Status Date / Time Penicillins Allergy Severe Anaphylaxis Verified 10/11/23 17:07 Worker's Comp Is this a Worker's Comp case?: No [facility] Disclaimer: The information contained in this section may have been updated after the patient was seen, as this information can be updated by other users. 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 , [employer]) Anxiety Depression Hypertension Migraine Urinary tract infection Social History , [employer]) Smoking S
[2023-10-11 18:06] VITALS: BP 139/96; PULSE 91; RESP 18; TEMP 36.6; O2SAT 98
== END 2023-10-11 18:06 | disposition home or self-care (01) ==
PROVIDERS: Emergency Provider Nurse Practitioner Family
DX: N30.00 Acute cystitis without hematuria (principal); B96.89 Other specified bacterial agents as the cause of diseases classified elsewhere; R39.11 Hesitancy of micturition; F17.210 Nicotine dependence, cigarettes, uncomplicated; F41.1 Generalized anxiety disorder
CPT/HCPCS: 81003; 81025; 87086; 99212; 99214; G0463

== ENCOUNTER 2023-11-27 14:08 | Emergency (ER) | payer BC, SELFPAY ==
[2023-11-27 14:10] VITALS: BP 125/95; PULSE 81; RESP 19; TEMP 37; O2SAT 96; BMI 47.5
--- NOTE | 2023-11-27 14:20 | ED_ITS ---
Discharge Plan Disposition Patient Disposition: Home, Self-Care Condition: Good Prescriptions Prescriptions: New azithromycin [Zithromax] 250 mg tablet 250 mg PO UD DOSE PK Qty: 6 0RF Rx Instructions: Take two (2) tablets today, then one (1) tablet days #2 thru #5 prednisone [prednisone] 20 mg tablet 20 mg PO BID 3 Days Qty: 6 0RF [id number] [Bromfed DM] 2-30-10 mg/5 mL Syrup 5 ml PO Q6H PRN (Reason: Cough) Qty: 240 0RF No Action phenazopyridine [Pyridium] 100 mg tablet 100 mg PO TID PRN (Reason: pain) 2 Days Qty: 6 0RF cefdinir 300 mg capsule 300 mg PO BID Qty: 20 0RF propranolol 80 mg tablet 80 mg PO DAILY Qty: 30 0RF hydroxyzine HCl 50 mg tablet 50 mg PO TID PRN (Reason: anxiety) 14 Days Qty: 42 0RF propranolol 80 mg capsule,extended release 24 hr 80 mg PO DAILY 30 Days Qty: 30 0RF hydroxyzine HCl 50 mg tablet 50 mg PO TID Qty: 42 0RF Zyrtec 10 mg capsule 10 mg PO DAILY Qty: 30 0RF Referrals Follow up/Referrals: Provider,Referral, MD [Primary Care Provider] - See instructions Activity Restrictions/Add. Instructions Additional Instructions/Restrictions: Drink plenty of fluids. Take tylenol or ibuprofen for pain or fever. Take the medications as directed. Follow up with your regular doctor. GO TO THE ER FOR ANY WORSENING SYMPTOMS Clinical Impressions Clinical Impression: RSV bronchitis Stand Alone Forms Stand Alone Forms: Work/School Release Instructions Patient Instructions: Respiratory Syncytial Virus, DI for Respiratory Syncytial Virus -- Adults, DI for Acute Bronchitis Discharge ED Provider: Ascencion Alcocer [facility] General Stated complaint: nose stuffy Time Seen by Provider: 11/27/23 14:20 History of Present Illness Provider Complaint: She states that for the past 1 week she has had had productive cough, sore throat, chills, and fever. Her daughter was diagnosed with RSV at the same time that she got sick. Related Data Previous Rx's Medication Instructions Recorded propranolol 80 mg capsule,24 80 mg PO DAILY Anxiety 30 days #30 05/31/ hr,extended release caps hydroxyzine HCl 50 mg tablet 50 mg PO TID #42 tabs 07/04/23 cetirizine 10 mg capsule (Zyrtec) 10 mg PO DAILY #30 caps 09/25/23 cefdinir 300 mg capsule 300 mg PO BID #20 caps 10/11/23 hydroxyzine HCl 50 mg tablet 50 mg PO TID PRN anxiety 14 days 10/11/23 #42 tabs phenazopyridine 100 mg tablet 100 mg PO TID PRN pain 2 days #6 10/11/23 (Pyridium) tabs propranolol 80 mg tablet 80 mg PO DAILY #30 tabs 10/11/23 azithromycin 250 mg tablet 250 mg PO UD DOSE PK #6 tabs 11/27/23 (Zithromax) [id number]-xzfqptuimxwyujh-[id number] 5 ml PO Q6H PRN Cough #240 mL 11/27/23 2 mg-30 mg-10 mg/5 mL oral syrup (Bromfed DM) prednisone 20 mg tablet 20 mg PO BID 3 days #6 tabs 11/27/23 Allergies Allergy/AdvReac Type Severity Reaction Status Date / Time Penicillins Allergy Severe Anaphylaxis Verified 10/11/23 17:07 [facility] Disclaimer: The information contained in this section may have been updated after the patient was seen, as this information can be updated by other users. 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 (Reviewed 10/11/23 @ 17:39 by [place] Savage ([facility]), STUDY DIRECTOR) Anxiety Depression Hypertension Migraine Urinary tract infection Social History (Reviewed 10/11/23 @ 17:39 by [place] Savage ([facility]), STUDY DIRECTOR) Smoking Status: Current every day smoker alcohol intake: never current occupational status: employed Travel in the last 8 weeks: None ROS Obtained: Yes All systems reviewed & no additional complaints except as documented Constitutional Constitutional: Reports chills and Reports fever(s) Eyes Eyes: Denies eye discharge ENT Ears, Nose, Mouth, and Throat: Reports as per HPI Cardiovascular Cardiovascular: Denies chest pain Respiratory Respiratory: Denies shortness of breath, Reports chest congestion, Reports cough, Denies stridor and Denies wheezing Gastrointestinal Gastrointestingal: Reports nausea; Denies abdominal pain, constipation, cramping, diarrhea or vomiting Musculoskeletal Musculoskeletal: Denies arthralgias Integumentary/Breasts Skin/Breast: Denies rash Neurologic Neurologic: Denies paresthesias Allergic/Immunologic Allergic/Immunologic: Denies wheezing Physical Exam General General appearance: alert and in no apparent distress Eye Eye exam: Present normal appearance, PERRL and EOMI ENT ENT exam: Present mucous membranes moist and normal external ear exam Expanded ENT Exam External ear exam: Present normal external inspection TM/Canal exam: Bilateral TM: erythema and bulging Nose exam: Absent sinus tenderness Nasal speculum exam: Bilateral: normal Mouth exam: Present normal external inspection; Absent drooling Teeth exam: Present normal inspection Throat exam: Present tonsillar erythema and tonsillomegaly Neck Neck exam: Present normal inspection, full ROM and trachea midline; Absent tenderness, lymphadenopathy or thyromegaly Chest Chest inspection: Present normal inspection and symmetric chest wall rise; Absent tenderness or rash Respiratory Respiratory exam: Present normal lung sounds bilaterally; Absent respiratory distress, wheezes, stridor or accessory muscle use Cardiovascular Cardiovascular exam: Present regular rate, normal rhythm and normal heart sounds Abdominal Exam Abdominal exam: Present soft; Absent distention, tenderness, guarding, rebound or rigidity Extremities Exam Extremities exam: Present normal inspection, full ROM and normal capillary refill; Absent tenderness or calf tenderness Back Exam Back exam: Present normal inspection and full ROM; Absent tenderness Neurological Exam Neurological exam: Present alert and oriented X3 Psychiatric Psychiatric exam: Present normal affect and normal mood Skin Skin exam: Present warm, dry, intact and normal color Lymphatic Lymphatic Findings: no adenopathy Medical Decision Making Medical Records Medical records reviewed: No I reviewed the patient's medical records. Best Inquiry Pt receiving controlled substance: No
[2023-11-27 14:44] VITALS: BP 125/95; PULSE 81; RESP 19; TEMP 37; O2SAT 96
== END 2023-11-27 14:44 | disposition home or self-care (01) ==
PROVIDERS: Emergency Provider Nurse Practitioner Family
DX: J20.5 Acute bronchitis due to respiratory syncytial virus (principal); R05.8 Other specified cough; R09.89 Other specified symptoms and signs involving the circulatory and respiratory systems; R07.0 Pain in throat; R50.9 Fever, unspecified; F17.210 Nicotine dependence, cigarettes, uncomplicated
CPT/HCPCS: 99212; 99214; G0463

== ENCOUNTER 2024-01-06 12:20 | Outpatient (CLI) | payer BC, SELFPAY ==
[2024-01-05 18:35] LABS: Basophils % 0.4 % (0.1-2.0); Eosinophils # 0.1 K/mm3 (0.0-0.4); Eosinophils % 0.9 % (0.1-12.0); Hematocrit 47.7 % (37.0-47.0); Hemoglobin 16.1 g/dL (12.2-16.2); Lymphocytes % 32.3 % (10-50); Mean Corpuscular HGB Conc 33.8 g/dL (31.8-35.4); Mean Corpuscular Hemoglobin 30.4 pg (27.0-31.2); Mean Corpuscular Volume 89.8 fl (81-99); Mean Platelet Volume 9.5 fl (7.4-10.4); Monocytes # 0.4 K/mm3 (0.1-1.0); Monocytes % 4.3 % (1.7-9.3); Neutrophils # 5.8 K/mm3 (1.8-7.8); Platelet Count 299 K/mm3 (142-424); Red Blood Count 5.31 M/mm3 (4.20-5.40); Red Cell Distribution Width 13.3 % (11.5-17.5); White Blood Count 9.4 K/mm3 (4.8-10.8)
[2024-01-05 18:36] LABS: Alanine Aminotransferase 29 U/L (12-78); Albumin Level 4.2 g/dl (3.5-5.0); Albumin/Globulin Ratio 1.5 (1.1-1.8); Alkaline Phosphatase 73 U/L (38-126); Aspartate Amino Transferase 24 U/L (14-36); Bilirubin,Total 0.2 mg/dl (0.2-1.3); Blood Urea Nitrogen 9 mg/dl (7-17); Calcium 9.7 mg/dl (8.4-10.2); Carbon Dioxide 25 mmol/L (22.0-30.0); Chloride 107 mmol/L (98-107); Chol/HDL Ratio 4.7 (1-3.5); Cholesterol 179 mg/dl (140-200); Estimated Glomerular Filt Rate 105 ml/min (>60); GFR (African American) 127 ML/MIN (>60); Globulin 2.8 g/dL (1.3-3.2); Glucose 108 mg/dl (74-100); HDL Cholesterol 38 mg/dl (40-60); Sodium 140 mmol/L (136-145); Triglycerides 130 mg/dl (30-150); VLDL Cholesterol 26 mg/dL (0-40)
[2024-01-05 18:48] LABS: Direct LDL Cholesterol 108.74 mg/dL (100-129)
[2024-01-05 18:56] LABS: 25-OH Vitamin D, Total 28.8 ng/mL (30-100)
[2024-01-05 19:07] LABS: Thyroid Stimulating Hormone 1.72 uIU/mL (0.465-4.68)
[2024-01-05 19:27] LABS: Vitamin B12 285 pg/mL (239-931)
[2024-01-05 21:58] LABS: Hemoglobin A1C 4.8 % (4.0-6.0)
== END 2024-01-06 23:59 ==
LOC: LAB.DROPOF 12:21
PROVIDERS: Visit Provider Family Medicine
DX: N94.6 Dysmenorrhea, unspecified (principal); E55.9 Vitamin D deficiency, unspecified; E66.9 Obesity, unspecified; Z68.42 Body mass index [BMI] 45.0-49.9, adult; Z79.899 Other long term (current) drug therapy
CPT/HCPCS: 80053; 80061; 82306; 82607; 83036; 84443; 85025

== ENCOUNTER 2024-03-25 01:59 | Emergency (ER) | payer BC, SELFPAY ==
[2024-03-25 02:01] VITALS: BP 123/76; PULSE 72; RESP 16; TEMP 36.7; O2SAT 96; BMI 50.4
--- NOTE | 2024-03-25 02:11 | ED_ITS ---
Discharge Plan Disposition Patient Disposition: Home, Self-Care Prescriptions Prescriptions: No Action propranolol 80 mg tablet 80 mg PO DAILY Qty: 30 2RF sumatriptan succinate 50 mg tablet See Rx Instructions PO .COMPLEX Qty: 10 0RF Rx Instructions: take 1 tab at onset of headache; if no relief may repeat 1 tab after at least 2 hrs; max = 4 tabs/24 hr PO ergocalciferol (vitamin D2) [Vitamin D2] 1,250 mcg (50,000 unit) capsule 1,250 mcg PO WEEKLY Qty: 5 2RF Vraylar 1.5 mg capsule 1.5 mg PO DAILY Qty: 90 2RF hydroxyzine HCl 50 mg tablet 50 mg PO TID Qty: 42 3RF Referrals Follow up/Referrals: Provider,Referral, [Primary Care Provider] - See instructions Activity Restrictions/Add. Instructions Additional Instructions/Restrictions: You were evaluated in the ER. You are appropriate for discharge at this time. Take Tylenol and ibuprofen if needed for menstrual pain. Drink plenty of fluids, eat a balanced diet. Make an appointment with your behavioral health team as well as with your primary care physician for reevaluation in 2 to 3 days. Return to the ER with new, worsening, or otherwise concerning symptoms. Clinical Impressions Clinical Impression: Lightheadedness Discharge ED Provider: Nadya Pinto Adult HPI General Chief complaint: Dizziness Stated complaint: on period, dizzy, headache, not eaten in 4 days Time Seen by Provider: 03/25/24 02:02 History of Present Illness HPI narrative: 23-year-old female with history of bipolar, anxiety, PCOS presents to the ER with concerns of dizziness and poor oral intake. On further discussion, patient describes the dizziness as lightheadedness. No numbness, tingling, or weakness. Patient has been on her menstrual cycle for the last 4 days, last period was February 18. She states she has irregular bleeding due to PCOS, she is not having exclusively heavy bleeding this time. Patient describes emotional concerns about her boyfriend but denies suicidal or homicidal ideation. Patient denies vomiting. She states she does have diarrhea but has a history of IBS. Nonbloody, nonmelanotic stool. She denies fevers. She states she has been eating well due to emotional distress, however she still has been having some to eat and drink daily. Related Data Previous Rx's Medication Instructions Recorded propranolol 80 mg tablet 80 mg PO DAILY #30 tabs 01/05/24 sumatriptan succinate 50 mg tablet See Rx Instructions PO .COMPLEX 01/05/24 #10 tabs ergocalciferol (vitamin D2) 1,250 1,250 mcg PO WEEKLY #5 caps 01/07/24 mcg (50,000 unit) capsule (Vitamin D2) cariprazine 1.5 mg capsule 1.5 mg PO DAILY bipolar #90 caps 02/03/24 (Vraylar) hydroxyzine HCl 50 mg tablet 50 mg PO TID #42 tabs 02/03/24 Allergies Allergy/AdvReac Type Severity Reaction Status Date / Time Penicillins Allergy Severe Anaphylaxis Verified 01/05/24 15:28 [facility] Disclaimer: The information contained in this section may have been updated after the patient was seen, as this information can be updated by other users. 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 (Updated 03/25/24 @ 02:22 by Nadya Pinto MD) RSV bronchitis Viral URI with cough Candidal vaginitis UTI (urinary tract infection) Urinary tract infection Skin yeast infection Vaginal yeast infection Depression Anxiety Urinary tract infection Migraine Hypertension Social History Smoking Status: Current every day smoker alcohol intake: never current occupational status: employed Travel in the last 8 weeks: None ROS Obtained: Yes All systems reviewed & no additional complaints except as documented Constitutional Constitutional: Denies chills, Denies fever(s), Denies headache(s) and Denies weakness Eyes Eyes: Denies change in vision ENT Ears, Nose, Mouth, and Throat: Reports dizziness, Denies headache(s), Denies nasal congestion and Denies sore throat Cardiovascular Cardiovascular: Denies chest pain, Denies dyspnea and Denies leg edema Respiratory Respiratory: Denies cough and Denies dyspnea Gastrointestinal Gastrointestingal: Denies constipation, diarrhea, nausea or vomiting Genitourinary Female Genitourinary: Denies dysuria Musculoskeletal Musculoskeletal: Denies arthralgias, Denies myalgias, Denies numbness and Denies tingling Integumentary/Breasts Skin/Breast: Denies change in pigmentation Neurologic Neurologic: Reports dizziness, Denies headache(s), Denies numbness, Denies tingling and Denies weakness Physical Exam General General appearance: alert and in no apparent distress Head Head exam: atraumatic and normocephalic Eye Eye exam: Present PERRL and EOMI; Absent nystagmus ENT ENT exam: Present mucous membranes moist Neck Neck exam: Present normal inspection and full ROM Chest Chest inspection: Present symmetric chest wall rise Respiratory Respiratory exam: Absent respiratory distress or stridor Cardiovascular Cardiovascular exam: Present regular rate and normal rhythm Abdominal Exam Abdominal exam: Present soft; Absent distention, tenderness, guarding or rebound Extremities Exam Extremities exam: Present full ROM Neurological Exam Neurological exam: Present alert, oriented X3, CN II-XII intact and normal gait; Absent motor sensory deficit Psychiatric Psychiatric exam: Present normal affect and normal mood Skin Skin exam: Present warm and dry Medical Decision Making Best Inquiry Pt receiving controlled substance: No Vital Signs: 03/25/24 02:01 Temperature 98.1 F Temperature Source Oral Pulse Rate [Right Brachial] 72 Respiratory Rate 16 Blood Pressure [Right Arm] 123/76 Blood Pressure Mean [Right Arm] 91 Blood Pressure Source [Right Arm] Automatic Cuff Blood Pressure Position [Right Arm] Sitting 02 Sat by Pulse Oximetry 96 Oxygen Delivery Method Room Air Lab Data Lab Results 03/25/24 02:15: WBC 11.5 H, RBC 5.13, Hgb 15.7, Hct 46.2, MCV 90.2, MCH 30.6, MCHC 34.0, RDW 13.4, Plt Count 346, MPV 8.7, Neut % (Auto) 65.8, Lymph % (Auto) 27.8, Eagle % (Auto) 3.6, Eos % (Auto) 1.8, Baso % (Auto) 1.0, Neut # (Auto) 7.6, Lymph # (Auto) 3.2, Eagle # (Auto) 0.4, Eos # (Auto) 0.2, Baso # (Auto) 0.1, Sodium 140, Potassium 3.7, Chloride 107, Carbon Dioxide 24, Anion Gap 12.7, BUN 11, Creatinine 0.80, Estimated Creat Clear 99, Estimated GFR 90, Est GFR ( Amer) 109, Glucose 116 H, Calcium 9.1, Total Bilirubin 0.4, AST 31, ALT 41, Alkaline Phosphatase 59, Total Protein 7.6, Albumin 4.4, Globulin 3.2, Albumin/Globulin Ratio 1.4, Serum HCG, Qual Negative 03/25/24 02:15 03/25/24 02:15 Orders (Tests/Meds): ED MEDICATIONS Generic Name Dose Route Start Last Admin Trade Name Freq PRN Reason Stop Dose Admin Lactated Ringer's 1,000 mls @ 999 mls/hr 03/25/24 02:05 03/25/24 02:27 Lactated Ringer's 1000 Ml Bag IV 03/25/24 03:05 999 mls/hr .Q1H1M ONE Administration Discontinued Medications Generic Name Dose Route Start Last Admin Trade Name Freq PRN Reason Stop Dose Admin Acetaminophen 1,000 mg 03/25/24 02:10 03/25/24 02:26 Acetaminophen 500mg Tab PO 03/25/24 02:11 1,000 mg ONCE ONE Administration Ondansetron HCl 4 mg 03/25/24 02:10 03/25/24 02:26 Ondansetron 4mg/2ml Vial IV 03/25/24 02:11 4 mg ONCE ONE Administration ORDERS Category Date Time Status CBC w/Auto Diff [Complete Blood Count Auto Diff] Stat Lab 03/25/24 02:05 Ordered CMP [Comprehensive Metabolic Panel] Stat Lab 03/25/24 02:05 Ordered HCG Qualitative, Serum Stat Lab 03/25/24 02:05 Ordered Medical Decision Narrative: In summary, 23-year-old female presents to the ER for concerns of dizziness and poor oral intake while on her menstrual cycle. Differential diagnosis includes but is not limited to anemia, electrolyte abnormality, dehydration, depression, poor emotional coping skills, . Given patient's complaint of dizziness initially, I had considered vertigo or intracranial lesion, however she describes it as lightheadedness and has no abnormalities on neurologic or ocular exam. On initial evaluation patient is hemodynamically stable, afebrile, alert, oriented, GCS 15 with no focal neurologic deficits, physical exam is benign. Patient states she has a lot of feelings but is not suicidal or homicidal. Basic labs were ordered and reviewed which demonstrate mild leukocytosis, no anemia, test negative, no findings of kidney or liver dysfunction, no actionable electrolyte abnormalities. Patient received oral Tylenol, Zofran, IV fluids. I reviewed previous records including field medicine progress note for anxiety which demonstrates patient was referred to behavioral health. In December she was prescribed sumatriptan, cariprazine, and propranolol. On reassessment she is appropriate for discharge at this time. She has tolerated oral intake. Symptoms are improved. Patient was given instructions on symptomatic management, follow up instructions, and return precautions for the emergency department. Patient indicated understanding and was discharged in stable condition. Critical Care Critical Care Time Critical Care Time: No
[2024-03-25 02:26] LABS: Basophils # 0.1 K/mm3 (0-0.2); Eosinophils # 0.2 K/mm3 (0.0-0.4); Eosinophils % 1.8 % (0.1-12.0); Hematocrit 46.2 % (37.0-47.0); Hemoglobin 15.7 g/dL (12.2-16.2); Lymphocytes # 3.2 K/mm3 (0.7-4.5); Lymphocytes % 27.8 % (10-50); Mean Corpuscular Hemoglobin 30.6 pg (27.0-31.2); Mean Corpuscular Volume 90.2 fl (81-99); Mean Platelet Volume 8.7 fl (7.4-10.4); Monocytes # 0.4 K/mm3 (0.1-1.0); Monocytes % 3.6 % (1.7-9.3); Neutrophils # 7.6 K/mm3 (1.8-7.8); Neutrophils % 65.8 % (37.0-80.0); Platelet Count 346 K/mm3 (142-424); Red Blood Count 5.13 M/mm3 (4.20-5.40); Red Cell Distribution Width 13.4 % (11.5-17.5); White Blood Count 11.5 K/mm3 (4.8-10.8)
[2024-03-25] MEDS: ACETAMINOPHEN 500MG TAB 1000 MG PO (02:26)
[2024-03-25] MEDS: ONDANSETRON 4MG/2ML VIAL 4 MG IV (02:26)
[2024-03-25] MEDS: LACTATED RINGERS 1000ML 1,000 ML 999 ML IV (02:27)
[2024-03-25 02:30] LABS: Chloride 107 mmol/L (98-107); Sodium 140 mmol/L (136-145)
[2024-03-25 02:31] LABS: Potassium 3.7 mmoL/L (3.5-5.1)
[2024-03-25 02:33] LABS: Alanine Aminotransferase 41 U/L (12-78); Albumin Level 4.4 g/dl (3.5-5.0); Albumin/Globulin Ratio 1.4 (1.1-1.8); Alkaline Phosphatase 59 U/L (38-126); Anion Gap 12.7 mEq/L (5-15); Aspartate Amino Transferase 31 U/L (14-36); Bilirubin,Total 0.4 mg/dl (0.2-1.3); Blood Urea Nitrogen 11 mg/dl (7-17); Carbon Dioxide 24 mmol/L (22.0-30.0); Creatinine Clearance Estimated 99 mL/min (50-200); Estimated Glomerular Filt Rate 90 ml/min (>60); GFR (African American) 109 ML/MIN (>60); Globulin 3.2 g/dL (1.3-3.2); Total Protein,Serum 7.6 g/dl (6.3-8.2)
[2024-03-25 02:34] LABS: Calcium 9.1 mg/dl (8.4-10.2); Glucose 116 mg/dl (74-100)
[2024-03-25 02:35] LABS: HCG Qualitative, Serum Negative (Negative)
[2024-03-25 03:07] VITALS: BP 95/61; PULSE 70; RESP 18; O2SAT 96
[2024-03-25 03:11] VITALS: BP 95/61; PULSE 72; RESP 18; TEMP 36.6; O2SAT 100
== END 2024-03-25 03:33 | disposition home or self-care (01) ==
PROVIDERS: Emergency Provider Emergency Medicine
DX: R42 Dizziness and giddiness (principal); F17.210 Nicotine dependence, cigarettes, uncomplicated
CPT/HCPCS: 80053; 84703; 85025; 96361; 96374; 99284; J2405

== ENCOUNTER 2024-06-10 11:13 | Emergency (ER) | payer BC, SELFPAY ==
[2024-06-10 11:36] VITALS: BP 135/84; PULSE 112; RESP 20; TEMP 37.2; O2SAT 97; BMI 51.4
--- NOTE | 2024-06-10 12:03 | EXP.UTC ---
Discharge Plan Disposition Patient Disposition: Home, Self-Care Condition: Good Prescriptions Prescriptions: New clindamycin HCl 300 mg capsule 300 mg PO Q8H Qty: 30 0RF methylprednisolone 4 mg Tablets,Dose Pack 4 mg PO DIRECTED 6 Days Qty: 21 0RF Rx Instructions: Take 1 pack as directed for 6 days No Action propranolol 80 mg tablet 80 mg PO DAILY Qty: 30 2RF sumatriptan succinate 50 mg tablet See Rx Instructions PO .COMPLEX Qty: 10 0RF Rx Instructions: take 1 tab at onset of headache; if no relief may repeat 1 tab after at least 2 hrs; max = 4 tabs/24 hr PO ergocalciferol (vitamin D2) [Vitamin D2] 1,250 mcg (50,000 unit) capsule 1,250 mcg PO WEEKLY Qty: 5 2RF Vraylar 1.5 mg capsule 1.5 mg PO DAILY Qty: 90 2RF hydroxyzine HCl 50 mg tablet 50 mg PO TID Qty: 42 3RF Referrals Follow up/Referrals: Provider,Referral, MD [Primary Care Provider] - See instructions Activity Restrictions/Add. Instructions Additional Instructions/Restrictions: Drink plenty of fluids. Take tylenol or ibuprofen for pain or fever. Take the medications as directed. Follow up with your regular doctor. GO TO THE ER FOR ANY WORSENING SYMPTOMS Throw your tooth brush away and get a new one. Clinical Impressions Clinical Impression: Strep throat Instructions Patient Instructions: Strep Throat, DI for Strep Throat Print Language Print Language: Lao Discharge ED Provider: Ascencion Alcocer [facility] [place] General Stated complaint: pain in both ears, sore throat, SOA Mode of Arrival: Ambulatory Source of Information: Patient Limitations: No Limitations Time Seen by Provider: 06/10/24 12:03 Description of Symptoms (Recalled from Triage Doc. by RN): pt reports she has been sick since April 03. pt c/o bilateral ear pain that radiates bilaterally down her jaw, into her teeth and her lymph nodes along her jaw. HEENT Symptoms (Recalled from RN notes): Yes Resp Symptoms (Recalled from RN notes): No Skin Symptoms (Recalled from RN notes): No MS Symptoms (Recalled from RN notes): No Functional Status (Recalled from RN notes): wnl History of Present Illness Provider Complaint: She states that for the past 2 weeks she has had sore throat, ear pain, and malaise. Related Data Previous Rx's ?Medication ?Instructions ?Recorded propranolol 80 mg tablet 80 mg PO DAILY #30 tabs 01/05/24 sumatriptan succinate 50 mg tablet See Rx Instructions PO .COMPLEX 01/05/24 #10 tabs ergocalciferol (vitamin D2) 1,250 1,250 mcg PO WEEKLY #5 caps 01/07/24 mcg (50,000 unit) capsule (Vitamin D2) cariprazine 1.5 mg capsule 1.5 mg PO DAILY bipolar #90 caps 02/03/24 (Vraylar) hydroxyzine HCl 50 mg tablet 50 mg PO TID #42 tabs 02/03/24 clindamycin HCl 300 mg capsule 300 mg PO Q8H #30 caps 06/10/24 methylprednisolone 4 mg tablets in 4 mg PO DIRECTED 6 days #21 tabs 06/10/24 a dose pack Allergies Allergy/AdvReac Type Severity Reaction Status Date / Time Penicillins Allergy Severe Anaphylaxis Verified 01/05/24 15:28 Worker's Comp Is this a Worker's Comp case?: No [facility] Disclaimer: The information contained in this section may have been updated after the patient was seen, as this information can be updated by other users. 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 (Updated 06/10/24 @ 12:25 by Ascencion Alcocer APRN) RSV bronchitis Viral URI with cough Candidal vaginitis UTI (urinary tract infection) Urinary tract infection Skin yeast infection Vaginal yeast infection Depression Anxiety Urinary tract infection Migraine Hypertension Social History Smoking Status: Smoker, status unknown alcohol intake: never current occupational status: employed Travel in the last 8 weeks: None ROS Obtained: Yes All systems reviewed & no additional complaints except as documented Constitutional Constitutional: Reports chills and Reports fever(s) Eyes Eyes: Denies eye discharge ENT Ears, Nose, Mouth, and Throat: Reports as per HPI Cardiovascular Cardiovascular: Denies chest pain Respiratory Respiratory: Denies chest congestion and Reports cough Gastrointestinal Gastrointestingal: Reports nausea; Denies abdominal pain, constipation, cramping, diarrhea or vomiting Musculoskeletal Musculoskeletal: Denies arthralgias Integumentary/Breasts Skin/Breast: Denies rash Neurologic Neurologic: Denies paresthesias Physical Exam General General appearance: alert and in no apparent distress Head Head exam: atraumatic, normocephalic and normal inspection Eye Eye exam: Present normal appearance, PERRL and EOMI ENT ENT exam: Present mucous membranes moist and normal external ear exam Expanded ENT Exam TM/Canal exam: Bilateral TM: erythema and bulging Nose exam: Absent sinus tenderness Mouth exam: Present normal external inspection; Absent drooling Teeth exam: Present normal inspection Throat exam: Present tonsillar erythema, tonsillomegaly and tonsillar exudate Neck Neck exam: Present normal inspection, full ROM and trachea midline; Absent tenderness, meningismus or lymphadenopathy Chest Chest inspection: Present normal inspection and symmetric chest wall rise; Absent tenderness Respiratory Respiratory exam: Present normal lung sounds bilaterally; Absent respiratory distress, wheezes, stridor or accessory muscle use Cardiovascular Cardiovascular exam: Present regular rate and normal rhythm; Absent systolic murmur or diastolic murmur Abdominal Exam Abdominal exam: Present soft and normal bowel sounds; Absent distention, tenderness, guarding, rebound or rigidity Extremities Exam Extremities exam: Present normal inspection and normal capillary refill; Absent calf tenderness Back Exam Back exam: Present normal inspection and full ROM; Absent tenderness, CVA tenderness (R) or CVA tenderness (L) Neurological Exam Neurological exam: Present alert, oriented X3 and CN II-XII intact Psychiatric Psychiatric exam: Present normal affect and normal mood Skin Skin exam: Present warm, dry, intact and normal color Medical Decision Making Medical Records Medical records reviewed: No I reviewed the patient's medical records. Best Inquiry Pt receiving controlled substance: No Vital Signs: 06/10/24 11:36 Temperature 99 F Temperature Source Oral Pulse Rate [Right] 112 H Respiratory Rate 20 Blood Pressure [Right Arm] 135/84 Blood Pressure Mean [Right Arm] 101 Blood Pressure Source [Right Arm] Automatic Cuff Blood Pressure Position [Right Arm] Sitting 02 Sat by Pulse Oximetry 97 Oxygen Delivery Method Room Air Lab Data Lab results reviewed: Yes I reviewed the patient's lab results.
[2024-06-10 12:25] LABS: UTC Strep Screen (Rapid) Positive (Negative)
[2024-06-10 12:31] VITALS: BP 135/84; PULSE 112; RESP 20; TEMP 37.2
== END 2024-06-10 12:32 | disposition home or self-care (01) ==
PROVIDERS: Emergency Provider Nurse Practitioner Family
DX: J02.0 Streptococcal pharyngitis (principal); H92.03 Otalgia, bilateral
CPT/HCPCS: 87880; 99212; 99214; G0463

== ENCOUNTER 2024-06-28 11:10 | Emergency (ER) | payer BC, SELFPAY ==
--- NOTE | 2024-06-28 11:23 | EXP.UTC ---
Discharge Plan Disposition Patient Disposition: Home, Self-Care Condition: Good Prescriptions Prescriptions: New phenazopyridine [Pyridium] 200 mg tablet 200 mg PO Q8H 2 Days Qty: 6 0RF ondansetron 4 mg Tablet,Disintegrating 4 mg PO Q8H PRN (Reason: Nausea) Qty: 12 0RF nitrofurantoin monohyd/m-cryst [Macrobid] 100 mg Capsule 100 mg PO BID Qty: 10 0RF Rx Instructions: must administer with a meal/food No Action propranolol 80 mg tablet 80 mg PO DAILY Patient Comments: TAKE ONE TABLET BY MOUTH EVERY DAY Referrals Follow up/Referrals: Provider,Referral, MD [Primary Care Provider] - See instructions Activity Restrictions/Add. Instructions Additional Instructions/Restrictions: Drink plenty of fluids. Take tylenol or ibuprofen for pain or fever. Take the medications as directed. Follow up with your regular doctor. GO TO THE ER FOR ANY WORSENING SYMPTOMS The pyridium will make your urine turn orange, this is an expected side effect. It will stain your clothes if it comes into contact with them. We will culture the urine. That will tell what bacteria is causing your infection and which antibiotics will treat it best. Sometimes the first antibiotic we prescribe turns out to not work against different bacteria. So, make sure you follow up within 3 days if you are not getting better. Clinical Impressions Clinical Impression: UTI (urinary tract infection) Stand Alone Forms Stand Alone Forms: Work/School Release Instructions Patient Instructions: Urine Culture, Ondansetron, Phenazopyridine, Nitrofurantoin Print Language Print Language: Macedonian Discharge ED Provider: Ascencion Alcocer [facility] [place] General Stated complaint: poss uti Time Seen by Provider: 06/28/24 11:23 Related Data Home Medications ?Medication ?Instructions ?Recorded ?Confirmed propranolol 80 mg tablet 80 mg PO DAILY 06/28/24 06/28/24 Previous Rx's ?Medication ?Instructions ?Recorded nitrofurantoin 100 mg PO BID #10 caps 06/28/24 monohydrate/macrocrystals 100 mg capsule (Macrobid) ondansetron 4 mg disintegrating 4 mg PO Q8H PRN Nausea #12 tabs 06/28/24 tablet phenazopyridine 200 mg tablet 200 mg PO Q8H 2 days #6 tabs 06/28/24 (Pyridium) Allergies Allergy/AdvReac Type Severity Reaction Status Date / Time Penicillins Allergy Severe Anaphylaxis Verified 01/05/24 15:28 [facility] Disclaimer: The information contained in this section may have been updated after the patient was seen, as this information can be updated by other users. 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 (Updated 06/28/24 @ 12:02 by Ascencion Alcocer APRN) RSV bronchitis Viral URI with cough Candidal vaginitis UTI (urinary tract infection) Urinary tract infection Skin yeast infection Vaginal yeast infection Depression Anxiety Urinary tract infection Migraine Hypertension Social History Smoking Status: Smoker, status unknown alcohol intake: never current occupational status: employed Travel in the last 8 weeks: None ROS Obtained: Yes All systems reviewed & no additional complaints except as documented Constitutional Constitutional: Reports system reviewed and no additional complaints, except as documented, Denies chills and Denies fever(s) Eyes Eyes: Denies eye discharge ENT Ears, Nose, Mouth, and Throat: Denies dysphagia, Denies sore throat and Denies throat swelling Cardiovascular Cardiovascular: Denies chest pain and Denies dyspnea Respiratory Respiratory: Denies chest congestion, Denies cough and Denies dyspnea Gastrointestinal Gastrointestingal: Denies abdominal pain, constipation, diarrhea, dysphagia, nausea or vomiting Genitourinary Female Genitourinary: Reports as per HPI, Reports dysuria, Reports urinary frequency, Denies urinary incontinence, Reports urinary hesitancy and Reports urinary urgency Musculoskeletal Musculoskeletal: Denies arthralgias and Reports back pain Integumentary/Breasts Skin/Breast: Denies rash Neurologic Neurologic: Denies paresthesias Allergic/Immunologic Allergic/Immunologic: Denies throat swelling Physical Exam General General appearance: alert and in no apparent distress Head Head exam: atraumatic, normocephalic and normal inspection Eye Eye exam: Present normal appearance, PERRL and EOMI ENT ENT exam: Present normal exam, normal oropharynx, mucous membranes moist, TM's normal bilaterally and normal external ear exam Neck Neck exam: Present normal inspection, full ROM and trachea midline; Absent meningismus or lymphadenopathy Chest Chest inspection: Present normal inspection and symmetric chest wall rise; Absent tenderness Respiratory Respiratory exam: Present normal lung sounds bilaterally; Absent respiratory distress Cardiovascular Cardiovascular exam: Present regular rate and normal rhythm; Absent JVD Abdominal Exam Abdominal exam: Present soft and normal bowel sounds; Absent distention, tenderness or guarding Extremities Exam Extremities exam: Present normal inspection, full ROM and normal capillary refill; Absent calf tenderness Back Exam Back exam: Present normal inspection; Absent tenderness Neurological Exam Neurological exam: Present alert and oriented X3 Psychiatric Psychiatric exam: Present normal affect and normal mood Skin Skin exam: Present warm, dry, intact and normal color Lymphatic Lymphatic Findings: no adenopathy Medical Decision Making Medical Records Medical records reviewed: No I reviewed the patient's medical records. Best Inquiry Pt receiving controlled substance: No Lab Data Lab results reviewed: Yes I reviewed the patient's lab results.
[2024-06-28 11:30] VITALS: BP 131/82; PULSE 86; RESP 20; TEMP 36.8; O2SAT 97; BMI 50.9
[2024-06-28 11:32] LABS: Apearance,Urine Clear (Clear); Bilirubin,Urine 1+ (Negative); Blood, Urine 3+ (Negative); Color,Urine Orange (Yellow); Glucose,Urine (UA) 100 (Negative); Ketones,Urine TRACE (Negative); Protein,Urine 1+ (Negative); Specific Gravity, Urine 1.025 (1.005-1.030); Urobilinogen,Urine 4 EU/dl (0.2)
[2024-06-28 11:33] LABS: UTC Leukocyte Esterase,Urine 3+ (Negative); UTC Nitrate,Urine Positive (Negative)
[2024-06-28 12:06] VITALS: BP 131/82; PULSE 86; RESP 20; TEMP 36.8; O2SAT 97
[2024-06-28 12:06] LABS: Urine Pregnancy, HCG Qual. Negative (Negative)
--- NOTE | 2024-06-30 10:49 | PC.NURSE ---
REVIEWED URINE CULTURE WITH Ashli PAYNE APRN. NO CHANGE NEEDED AT THIS TIME
== END 2024-06-28 12:08 | disposition home or self-care (01) ==
PROVIDERS: Emergency Provider Nurse Practitioner Family
DX: N39.0 Urinary tract infection, site not specified (principal); B96.29 Other Escherichia coli [E. coli] as the cause of diseases classified elsewhere; R30.0 Dysuria; R35.0 Frequency of micturition; R39.15 Urgency of urination
CPT/HCPCS: 81003; 81025; 87086; 87088; 87186; 99212; 99214; G0463

== ENCOUNTER 2024-07-29 11:22 | Emergency (ER) | payer BC, SELFPAY ==
[2024-07-29 11:45] VITALS: BP 117/75; PULSE 84; RESP 20; TEMP 36.7; O2SAT 98; BMI 50.9
[2024-07-29 11:49] LABS: Color,Urine Yellow (Yellow)
[2024-07-29 11:50] LABS: Apearance,Urine Cloudy (Clear); Bilirubin,Urine Negative (Negative); Blood, Urine 4+ (Negative); Glucose,Urine (UA) Negative (Negative); Ketones,Urine Negative (Negative); PH,Urine 5.5 (5.0-8.5); Protein,Urine Trace (Negative); UTC Leukocyte Esterase,Urine Negative (Negative); UTC Nitrate,Urine Negative (Negative); UTC Pregnancy Test, Urine Negative (Negative); Urobilinogen,Urine 0.2 EU/dl (0.2)
--- NOTE | 2024-07-29 11:57 | EXP.UTC ---
Discharge Plan Disposition Patient Disposition: Home, Self-Care Condition: Good Prescriptions Prescriptions: New nitrofurantoin monohyd/m-cryst [Macrobid] 100 mg capsule 100 mg PO Q12H 5 Days Qty: 10 0RF Rx Instructions: must administer with a meal/food phenazopyridine [Pyridium] 200 mg tablet 200 mg PO Q8H 2 Days Qty: 6 0RF No Action propranolol 80 mg tablet 80 mg PO DAILY Patient Comments: TAKE ONE TABLET BY MOUTH EVERY DAY phenazopyridine [Pyridium] 200 mg tablet 200 mg PO Q8H 2 Days Qty: 6 0RF ondansetron 4 mg Tablet,Disintegrating 4 mg PO Q8H PRN (Reason: Nausea) Qty: 12 0RF nitrofurantoin monohyd/m-cryst [Macrobid] 100 mg Capsule 100 mg PO BID Qty: 10 0RF Rx Instructions: must administer with a meal/food Referrals Follow up/Referrals: Provider,Referral, MD [Primary Care Provider] - See instructions Activity Restrictions/Add. Instructions Additional Instructions/Restrictions: *Increase fluids. Water not Soda or Tea *Start antibiotic immediately and be sure to take as ordered for the FULL length of time although you should start to see improvement over the next 48 hours *Pyridium as needed Remember this medication will turn your urine . This is normal but it will stain what ever it gets on *You should not use Pyridium for more than 48 hours. If so , follow up with your primary physician to review urine culture and ensure that antibiotic is adequate for infection *Be SURE to follow up anytime for new or worsening symptoms with your family doctor. AND in 48 hours for urine culture results with your family doctor, if you do not have a doctor then you may call back to the [facility] for urine culture results and further treatment. We do recommend that you choose and establish care with a Primary Care Physician. ?AND follow up with them ?in 10-14 days to repeat UA to ensure infection is resolved and blood no longer present *Be sure to let your PCP know that we sent urine cultures from the [facility] so they can follow up to ensure that you area the on the correct antibiotic Call your doctor office and make appointment for 48 hours (2 days from today) ?to follow up and get the results of your urine culture and further treatment Clinical Impressions Clinical Impression: UTI symptoms Instructions Patient Instructions: Urinary Tract Infection, DI for Urinary Tract Infection (UTI) Print Language Print Language: Swazi Discharge ED Provider: Arely Peres [facility] [place] General Stated complaint: pain when urinating, freq. urinating, vomitting Mode of Arrival: Ambulatory Source of Information: Patient Time Seen by Provider: 07/29/24 11:57 Description of Symptoms (Recalled from Triage Doc. by RN): VOMITING, HOT FLASHES, SIDE BACK PAIN, HEENT Symptoms (Recalled from RN notes): No Resp Symptoms (Recalled from RN notes): No Skin Symptoms (Recalled from RN notes): No MS Symptoms (Recalled from RN notes): No Functional Status (Recalled from RN notes): WNL History of Present Illness Provider Complaint: Patient states that she has been having burning with urination, feeling of urgency and frequency achy like pain in her back like she gets when she has a UTI States last period was in Jun and she has been having vomiting when she first wakes up in the am not sure if she may be or not Denies loss of control of urine, denies fever Related Data Home Medications ?Medication ?Instructions ?Recorded ?Confirmed propranolol 80 mg tablet 80 mg PO DAILY 06/28/24 06/28/24 Previous Rx's ?Medication ?Instructions ?Recorded nitrofurantoin 100 mg PO BID #10 caps 06/28/24 monohydrate/macrocrystals 100 mg capsule (Macrobid) ondansetron 4 mg disintegrating 4 mg PO Q8H PRN Nausea #12 tabs 06/28/24 tablet phenazopyridine 200 mg tablet 200 mg PO Q8H 2 days #6 tabs 06/28/24 (Pyridium) nitrofurantoin 100 mg PO Q12H 5 days #10 caps 07/29/24 monohydrate/macrocrystals 100 mg capsule (Macrobid) phenazopyridine 200 mg tablet 200 mg PO Q8H pain 2 days #6 tabs 07/29/24 (Pyridium) Allergies Allergy/AdvReac Type Severity Reaction Status Date / Time Penicillins Allergy Severe Anaphylaxis Verified 01/05/24 15:28 Worker's Comp Is this a Worker's Comp case?: No [facility] Disclaimer: The information contained in this section may have been updated after the patient was seen, as this information can be updated by other users. 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 (Updated 07/29/24 @ 12:13 by Arely Peres APRN) RSV bronchitis Viral URI with cough Candidal vaginitis UTI (urinary tract infection) Urinary tract infection Skin yeast infection Vaginal yeast infection Depression Anxiety Urinary tract infection Migraine Hypertension Social History Smoking Status: Smoker, status unknown alcohol intake: never current occupational status: employed Travel in the last 8 weeks: None ROS Obtained: Yes All systems reviewed & no additional complaints except as documented and Yes Systems reviewed as appropriate & no additional complaints except as documented Constitutional Constitutional: Reports system reviewed and no additional complaints, except as documented, Reports as per HPI, Denies body ache, Denies chills and Denies fever(s) ENT Ears, Nose, Mouth, and Throat: Reports system reviewed and no additional complaints, except as documented and Reports as per HPI Cardiovascular Cardiovascular: Reports system reviewed and no additional complaints, except as documented and Reports as per HPI Respiratory Respiratory: Reports system reviewed and no additional complaints, except as documented and Reports as per HPI Gastrointestinal Gastrointestingal: Reports system reviewed and no additional complaints, except as documented, as per HPI and other (reports pressure like feeling in her lower abdomen) Genitourinary Female Genitourinary: Reports system reviewed and no additional complaints, except as documented, Reports as per HPI, Reports dysuria, Reports flank pain, Reports urinary frequency and Reports urinary urgency Musculoskeletal Musculoskeletal: Reports system reviewed and no additional complaints, except as documented and Reports as per HPI Physical Exam General General appearance: alert and in no apparent distress ENT ENT exam: Present mucous membranes moist Respiratory Respiratory exam: Present normal lung sounds bilaterally; Absent respiratory distress or wheezes Cardiovascular Cardiovascular exam: Present regular rate, normal rhythm and normal heart sounds Abdominal Exam Abdominal exam: Present soft and normal bowel sounds; Absent distention, tenderness, guarding or rebound Neurological Exam Neurological exam: Present alert, oriented X3 and normal gait Medical Decision Making Medical Records Screening: Per USPSTF and CDC recommendations, given the prevalence of disease in our region, it is our hospital?s policy to screen for HIV and viral Hepatitis for all patients aged 18 and over and those with ongoing risk factors. Best Inquiry Pt receiving controlled substance: No Best was queried for this patient: No Vital Signs: 07/29/24 11:45 Temperature 98.1 F Temperature Source Oral Pulse Rate [Left Brachial] 84 Respiratory Rate 20 Blood Pressure [Left Arm] 117/75 Blood Pressure Mean [Left Arm] 89 02 Sat by Pulse Oximetry 98 Lab Data Lab results reviewed: Yes I reviewed the patient's lab results. Lab Results 07/29/24 11:48: Urine Color Yellow, Urine Appearance Cloudy, Urine pH 5.5, Ur Specific [place] 1.030, Urine Protein Trace, Urine Glucose (UA) Negative, Urine Ketones Negative, Urine Blood 4+, Urine Nitrate Negative, Urine Bilirubin Negative, Urine Urobilinogen 0.2, Ur Leukocyte Esterase Negative, Tst Clinic Negative Medical Decision Narrative: discussed with patient about transfer to the ED for furhter work up and evaluation and she declined States that this is the same symptoms she has everytime with UTI will start on antibiotics and send urine for culture
[2024-07-29 12:34] VITALS: BP 117/75; PULSE 84; RESP 20; TEMP 36.7
== END 2024-07-29 12:38 | disposition home or self-care (01) ==
PROVIDERS: Emergency Provider Nurse Practitioner
DX: N39.0 Urinary tract infection, site not specified (principal); B96.89 Other specified bacterial agents as the cause of diseases classified elsewhere; R35.0 Frequency of micturition; R30.9 Painful micturition, unspecified
CPT/HCPCS: 81003; 81025; 87086; 99212; 99214; G0463

== ENCOUNTER 2024-07-29 13:37 | Emergency (ER) | payer BC, SELFPAY ==
[2024-07-29 13:38] VITALS: BP 114/91; PULSE 90; RESP 22; TEMP 36.7; O2SAT 97; BMI 50.1
--- NOTE | 2024-07-29 13:41 | [facility].EDGENADL ---
Discharge Plan Disposition Patient Disposition: Home, Self-Care Condition: Good Prescriptions Prescriptions: New ketorolac 10 mg tablet 10 mg PO Q8H PRN (Reason: pain) Qty: 12 0RF Rx Instructions: maximum total duration of 5 days from all oral, intranasal, or parenteral formulations ondansetron 4 mg tablet,disintegrating 4 mg PO Q8H PRN (Reason: nausea and vomiting) 4 Days Qty: 12 0RF No Action propranolol 80 mg tablet 80 mg PO DAILY Patient Comments: TAKE ONE TABLET BY MOUTH EVERY DAY phenazopyridine [Pyridium] 200 mg tablet 200 mg PO Q8H 2 Days Qty: 6 0RF ondansetron 4 mg Tablet,Disintegrating 4 mg PO Q8H PRN (Reason: Nausea) Qty: 12 0RF nitrofurantoin monohyd/m-cryst [Macrobid] 100 mg Capsule 100 mg PO BID Qty: 10 0RF Rx Instructions: must administer with a meal/food nitrofurantoin monohyd/m-cryst [Macrobid] 100 mg capsule 100 mg PO Q12H 5 Days Qty: 10 0RF Rx Instructions: must administer with a meal/food phenazopyridine [Pyridium] 200 mg tablet 200 mg PO Q8H 2 Days Qty: 6 0RF Referrals Follow up/Referrals: Provider,Referral, [Primary Care Provider] - See instructions Activity Restrictions/Add. Instructions Additional Instructions/Restrictions: You were evaluated in the emergency department today. At this time, we feel that you passed the stone. Please follow-up outpatient with your primary care provider. We also provided you with information for urology to help arrange follow-up. Make sure you stay hydrated. Monitor for new or worsening symptoms such as fevers, significant worsening of pain, or intractable nausea or vomiting. Return to the emergency department right away for new or worsening symptoms Clinical Impressions Clinical Impression: Kidney stone Stand Alone Forms Stand Alone Forms: Work/School Release Instructions Patient Instructions: DI for Kidney Stones Print Language Print Language: Italian Discharge ED Provider: Jeny Rivera General Adult HPI <Karan Trinidad MD - Last Filed: 07/30/24 17:41> General Chief complaint: Urogenital-Female Stated complaint: vomiting back pain Time Seen by Provider: 07/29/24 13:41 History of Present Illness HPI narrative: The patient presents with a chief complaint of severe pain in the left lower back, radiating down the side to the bladder. The pain began last night and has progressively worsened. She reports difficulty urinating, with only a small amount of urine produced despite drinking five bottles of water today. She also experiences pain during various positions, including sitting, lying down, and walking. She mentions a recent urinalysis at the [facility], which showed normal appearance but with the presence of blood. She denies any previous history of kidney stones and is 24 years old. She reports feeling nauseous, unable to eat due to the pain, and experiencing increased sweating. Her pain is exacerbated by breathing and movement. Please note that above description of symptoms, in this electronic medical record under categorization of recalled from ER triage doctor by RN are reflective of an initial nursing assessment, however, is not reflective of my full history and physical exam that was personally taken and clarified. Consequentially, this preceding description of symptoms, which may include the patient's categorized chief complaint in the EMR, do not reflect my personal clinical impression, and the ultimate description of history of present illness and patient stated complaints should be deferred to this section of the note. Unless stated otherwise or congruent with this section of the note, additional signs, symptoms, or incongruence should be interpreted as inaccurate with my clinical impression. Related Data Home Medications ?Medication ?Instructions ?Recorded ?Confirmed propranolol 80 mg tablet 80 mg PO DAILY 06/28/24 06/28/24 Previous Rx's ?Medication ?Instructions ?Recorded nitrofurantoin 100 mg PO BID #10 caps 06/28/24 monohydrate/macrocrystals 100 mg capsule (Macrobid) ondansetron 4 mg disintegrating 4 mg PO Q8H PRN Nausea #12 tabs 06/28/24 tablet phenazopyridine 200 mg tablet 200 mg PO Q8H 2 days #6 tabs 06/28/24 (Pyridium) ketorolac 10 mg tablet 10 mg PO Q8H PRN pain #12 tabs 07/29/24 nitrofurantoin 100 mg PO Q12H 5 days #10 caps 07/29/24 monohydrate/macrocrystals 100 mg capsule (Macrobid) ondansetron 4 mg disintegrating 4 mg PO Q8H PRN nausea and 07/29/24 tablet vomiting 4 days #12 tabs phenazopyridine 200 mg tablet 200 mg PO Q8H pain 2 days #6 tabs 07/29/24 (Pyridium) Allergies Allergy/AdvReac Type Severity Reaction Status Date / Time Penicillins Allergy Severe Anaphylaxis Verified 01/05/24 15:28 PFS <Karan Trinidad MD - Last Filed: 07/30/24 17:41> [facility] Disclaimer: The information contained in this section may have been updated after the patient was seen, as this information can be updated by other users. 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 (Updated 07/29/24 @ 17:12 by Jeny Rivera DO) RSV bronchitis Viral URI with cough Candidal vaginitis UTI (urinary tract infection) Urinary tract infection Skin yeast infection Vaginal yeast infection Depression Anxiety Urinary tract infection Migraine Hypertension Social History Smoking Status: Current every day smoker alcohol intake: never current occupational status: employed Travel in the last 8 weeks: None <Karan Trinidad MD - Last Filed: 07/30/24 17:41> ROS Obtained: Yes other As per HPI Physical Exam <Karan Trinidad MD - Last Filed: 07/30/24 17:41> General General appearance: alert and in no apparent distress Head Head exam: atraumatic and normocephalic Eye Eye exam: Present normal appearance Neck Neck exam: Present normal inspection Chest Chest inspection: Present normal inspection and symmetric chest wall rise Respiratory Respiratory exam: Present normal lung sounds bilaterally; Absent respiratory distress Cardiovascular Cardiovascular exam: Present regular rate and normal rhythm Abdominal Exam Abdominal exam: Present soft Comment: Left CVA tenderness to palpation, suprapubic tenderness Neurological Exam Neurological exam: Present alert and oriented X3 Psychiatric Psychiatric exam: Present normal affect and normal mood Skin Skin exam: Present warm and dry Medical Decision Making <Karan Trinidad MD - Last Filed: 07/30/24 17:41> Medical Records Medical records reviewed: Yes I reviewed the patient's medical records. Screening: Per USPSTF and CDC recommendations, given the prevalence of disease in our region, it is our hospital?s policy to screen for HIV and viral Hepatitis for all patients aged 18 and over and those with ongoing risk factors. Best Inquiry Pt receiving controlled substance: No Vital Signs: 07/29/24 13:38 07/29/24 16:09 07/29/24 16:30 Temperature 98.0 F Temperature Source Oral Pulse Rate 62 62 Pulse Rate [Right] 90 Respiratory Rate 22 18 Blood Pressure 95/55 L 105/51 L Blood Pressure [Right Arm] 114/91 H Blood Pressure Mean 68 Blood Pressure Mean [Right Arm] 98 Blood Pressure Source Blood Pressure Position 02 Sat by Pulse Oximetry 97 100 99 Oxygen Delivery Method 07/29/24 17:21 07/29/24 17:21 Temperature 98.0 F 98.3 F Temperature Source Oral Oral Pulse Rate 90 90 Pulse Rate [Right] Respiratory Rate 18 18 Blood Pressure 116/74 116/74 Blood Pressure [Right Arm] Blood Pressure Mean Blood Pressure Mean [Right Arm] Blood Pressure Source Automatic Cuff Automatic Cuff Blood Pressure Position Sitting Sitting 02 Sat by Pulse Oximetry Oxygen Delivery Method Room Air Room Air Lab Data Lab Results 07/29/24 12:12: Urine Color Yellow, Urine Appearance Clear, Urine pH 6.0, Ur Specific [place] >= 1.030, Urine Protein Negative, Urine Glucose (UA) Negative, Urine Ketones Negative, Urine Blood 3+ A, Urine Nitrate Negative, Urine Bilirubin Negative, Urine Urobilinogen 0.2, Ur Leukocyte Esterase Trace, Urine RBC Tntc, Urine WBC 5-10, Ur Squamous Epith Cells 20-50, Urine Bacteria 2+ 07/29/24 14:15: WBC 9.8, RBC 5.05, Hgb 15.2, Hct 46.1, MCV 91.3, MCH 30.1, MCHC 33.0, RDW 13.8, Plt Count 329, MPV 8.8, Neut % (Auto) 72.7, Lymph % (Auto) 21.9, [place] % (Auto) 4.3, Eos % (Auto) 0.5, Baso % (Auto) 0.6, Neut # (Auto) 7.1, Lymph # (Auto) 2.2, [place] # (Auto) 0.4, Eos # (Auto) 0.1, Baso # (Auto) 0.1, Sodium 137, Potassium 3.9, Chloride 106, Carbon Dioxide 26, Anion Gap 8.9, BUN 12, Creatinine 0.90, Estimated Creat Clear 98, Estimated GFR 78, Est GFR ( Amer) 94, Glucose 129 H, Calcium 9.3, Total Bilirubin 1.0, AST 32, ALT 36, Alkaline Phosphatase 60, Total Protein 7.3, Albumin 4.5, Globulin 2.8, Albumin/Globulin Ratio 1.6, Lipase 78, Serum HCG, Qual Negative, HIV 1&2 Antibody Rapid Nonreactive 07/29/24 14:15 07/29/24 14:15 Orders (Tests/Meds): ED MEDICATIONS Discontinued Medications Generic Name Dose Route Start Last Admin Trade Name Freq PRN Reason Stop Dose Admin Lactated Ringer's 1,000 mls @ 999 mls/hr 07/29/24 14:08 07/29/24 14:16 Lactated Ringer's 1000 Ml Bag IV 07/29/24 15:08 999 mls/hr .Q1H1M ONE Administration Ketorolac Tromethamine 15 mg 07/29/24 14:08 07/29/24 14:16 Ketorolac 30mg/Ml Vial IV 07/29/24 14:09 15 mg ONCE ONE Administration Ondansetron HCl 4 mg 07/29/24 14:08 07/29/24 14:16 Ondansetron 4mg/2ml Vial IV 07/29/24 14:09 4 mg ONCE ONE Administration Oxycodone HCl 5 mg 07/29/24 16:29 07/29/24 16:44 Oxycodone 5mg Immediate Release Tablet PO 07/29/24 16:30 5 mg ONCE ONE Administration Tamsulosin HCl 0.4 mg 07/29/24 16:29 07/29/24 16:45 Tamsulosin 0.4mg Capsule PO 07/29/24 16:30 0.4 mg ONCE ONE Administration ORDERS Category Date Time Status CT abdomen pelvis wo con Stat Cat Scan 07/29/24 14:08 Completed CBC w/Auto Diff [Complete Blood Count Auto Diff] Stat Lab 07/29/24 14:15 Completed CMP [Comprehensive Metabolic Panel] Stat Lab 07/29/24 14:15 Completed HCG Qualitative, Serum Stat Lab 07/29/24 14:15 Completed HIV (1&2) Antibody Rapid Stat Lab 07/29/24 14:15 Completed Hep C Ab with Reflex to RNA Stat Lab 07/29/24 14:15 Received Lipase Stat Lab 07/29/24 14:15 Completed UA [Urinalysis and Microscopic] Stat Lab 07/29/24 12:12 Completed Medical Decision Narrative: Patient with history and exam per above presenting for evaluation of flank pain Diagnoses considered include urolithiasis, hydronephrosis, pyelonephritis, cystitis, among others. ED workup and treatment included: ED MEDICATIONS Discontinued Medications Generic Name Dose Route Start Last Admin Trade Name Freq PRN Reason Stop Dose Admin Lactated Ringer's 1,000 mls @ 999 mls/hr 07/29/24 14:08 07/29/24 14:16 Lactated Ringer's 1000 Ml Bag IV 07/29/24 15:08 999 mls/hr .Q1H1M ONE Administration Ketorolac Tromethamine 15 mg 07/29/24 14:08 07/29/24 14:16 Ketorolac 30mg/Ml Vial IV 07/29/24 14:09 15 mg ONCE ONE Administration Ondansetron HCl 4 mg 07/29/24 14:08 07/29/24 14:16 Ondansetron 4mg/2ml Vial IV 07/29/24 14:09 4 mg ONCE ONE Administration Oxycodone HCl 5 mg 07/29/24 16:29 07/29/24 16:44 Oxycodone 5mg Immediate Release Tablet PO 07/29/24 16:30 5 mg ONCE ONE Administration Tamsulosin HCl 0.4 mg 07/29/24 16:29 07/29/24 16:45 Tamsulosin 0.4mg Capsule PO 07/29/24 16:30 0.4 mg ONCE ONE Administration ORDERS Category Date Time Status CT abdomen pelvis wo con Stat Cat Scan 07/29/24 14:08 Completed CBC w/Auto Diff [Complete Blood Count Auto Diff] Stat Lab 07/29/24 14:15 Completed CMP [Comprehensive Metabolic Panel] Stat Lab 07/29/24 14:15 Completed HCG Qualitative, Serum Stat Lab 07/29/24 14:15 Completed HIV (1&2) Antibody Rapid Stat Lab 07/29/24 14:15 Completed Hep C Ab with Reflex to RNA Stat Lab 07/29/24 14:15 Received Lipase Stat Lab 07/29/24 14:15 Completed UA [Urinalysis and Microscopic] Stat Lab 07/29/24 12:12 Completed Labs and imaging pending at this time. Care was transferred to incoming physician. DO Miguel: I assumed care of the patient at 1500 after departure of the previous physician. Urine demonstrates positive blood. It is grossly contaminated with skin cells, but no obvious infection with negative nitrates. CT scan demonstrates a 2 mm stone with mild hydro-, but the patient went to the bathroom here and passed the stone. She had resolution of pain at this time and feels she is ready to go home. Ultimately, I feel she likely passed the kidney stone that was causing her pain and obstruction. I feel that she is appropriate for discharge home. Urine culture was sent and is pending but no antibiotic will be started at this time given lack of infectious symptoms. She was given prescriptions for Toradol and Zofran as well as instructions for follow-up with primary care and urology. She was discharged with strict return precautions after all questions were answered <Jeny Rivera, DO - Last Filed: 07/29/24 17:50> Vital Signs: 07/29/24 13:38 07/29/24 16:09 07/29/24 16:30 Temperature 98.0 F Temperature Source Oral Pulse Rate 62 62 Pulse Rate [Right] 90 Respiratory Rate 22 18 Blood Pressure 95/55 L 105/51 L Blood Pressure [Right Arm] 114/91 H Blood Pressure Mean 68 Blood Pressure Mean [Right Arm] 98 Blood Pressure Source Blood Pressure Position 02 Sat by Pulse Oximetry 97 100 99 Oxygen Delivery Method 07/29/24 17:21 07/29/24 17:21 Temperature 98.0 F 98.3 F Temperature Source Oral Oral Pulse Rate 90 90 Pulse Rate [Right] Respiratory Rate 18 18 Blood Pressure 116/74 116/74 Blood Pressure [Right Arm] Blood Pressure Mean Blood Pressure Mean [Right Arm] Blood Pressure Source Automatic Cuff Automatic Cuff Blood Pressure Position Sitting Sitting 02 Sat by Pulse Oximetry Oxygen Delivery Method Room Air Room Air Lab Data Lab Results 07/29/24 12:12: Urine Color Yellow, Urine Appearance Clear, Urine pH 6.0, Ur Specific [place] >= 1.030, Urine Protein Negative, Urine Glucose (UA) Negative, Urine Ketones Negative, Urine Blood 3+ A, Urine Nitrate Negative, Urine Bilirubin Negative, Urine Urobilinogen 0.2, Ur Leukocyte Esterase Trace, Urine RBC Tntc, Urine WBC 5-10, Ur Squamous Epith Cells 20-50, Urine Bacteria 2+ 07/29/24 14:15: WBC 9.8, RBC 5.05, Hgb 15.2, Hct 46.1, MCV 91.3, MCH 30.1, MCHC 33.0, RDW 13.8, Plt Count 329, MPV 8.8, Neut % (Auto) 72.7, Lymph % (Auto) 21.9, [place] % (Auto) 4.3, Eos % (Auto) 0.5, Baso % (Auto) 0.6, Neut # (Auto) 7.1, Lymph # (Auto) 2.2, [place] # (Auto) 0.4, Eos # (Auto) 0.1, Baso # (Auto) 0.1, Sodium 137, Potassium 3.9, Chloride 106, Carbon Dioxide 26, Anion Gap 8.9, BUN 12, Creatinine 0.90, Estimated Creat Clear 98, Estimated GFR 78, Est GFR ( Amer) 94, Glucose 129 H, Calcium 9.3, Total Bilirubin 1.0, AST 32, ALT 36, Alkaline Phosphatase 60, Total Protein 7.3, Albumin 4.5, Globulin 2.8, Albumin/Globulin Ratio 1.6, Lipase 78, Serum HCG, Qual Negative, HIV 1&2 Antibody Rapid Nonreactive Orders (Tests/Meds): ED MEDICATIONS Discontinued Medications Generic Name Dose Route Start Last Admin Trade Name Karina PRN Reason Stop Dose Admin Lactated Ringer's 1,000 mls @ 999 mls/hr 07/29/24 14:08 07/29/24 14:16 Lactated Ringer's 1000 Ml Bag IV 07/29/24 15:08 999 mls/hr .Q1H1M ONE Administration Ketorolac Tromethamine 15 mg 07/29/24 14:08 07/29/24 14:16 Ketorolac 30mg/Ml Vial IV 07/29/24 14:09 15 mg ONCE ONE Administration Ondansetron HCl 4 mg 07/29/24 14:08 07/29/24 14:16 Ondansetron 4mg/2ml Vial IV 07/29/24 14:09 4 mg ONCE ONE Administration Oxycodone HCl 5 mg 07/29/24 16:29 07/29/24 16:44 Oxycodone 5mg Immediate Release Tablet PO 07/29/24 16:30 5 mg ONCE ONE Administration Tamsulosin HCl 0.4 mg 07/29/24 16:29 07/29/24 16:45 Tamsulosin 0.4mg Capsule PO 07/29/24 16:30 0.4 mg ONCE ONE Administration ORDERS Category Date Time Status CT abdomen pelvis wo con Stat Cat Scan 07/29/24 14:08 Completed CBC w/Auto Diff [Complete Blood Count Auto Diff] Stat Lab 07/29/24 14:15 Completed CMP [Comprehensive Metabolic Panel] Stat Lab 07/29/24 14:15 Completed HCG Qualitative, Serum Stat Lab 07/29/24 14:15 Completed HIV (1&2) Antibody Rapid Stat Lab 07/29/24 14:15 Completed Hep C Ab with Reflex to RNA Stat Lab 07/29/24 14:15 Received Lipase Stat Lab 07/29/24 14:15 Completed UA [Urinalysis and Microscopic] Stat Lab 07/29/24 12:12 Completed Medical Decision Narrative: Patient with history and exam per above presenting for evaluation of Diagnoses considered include ED workup and treatment included: Labs were independently interpreted by me, significant for Imaging was independently visualized and interpreted by me, significant for Please refer to radiology report for full details. My clinical impression at this time is most consistent with I discussed my clinical impression with patient and answered all questions. At this time, the evidence for any other entities in the differential is insufficient to warrant any further testing or ED observation. This was explained to the patient. The patient was advised that persistent or worsening symptoms require further evaluation. DO Miguel: I assumed care of the patient at 1500 after departure of the previous physician. Urine demonstrates positive blood. It is grossly contaminated with skin cells, but no obvious infection with negative nitrates. CT scan demonstrates a 2 mm stone with mild hydro-, but the patient went to the bathroom here and passed the stone. She had resolution of pain at this time and feels she is ready to go home. Ultimately, I feel she likely passed the kidney stone that was causing her pain and obstruction. I feel that she is appropriate for discharge home. Urine culture was sent and is pending but no antibiotic will be started at this time given lack of infectious symptoms. She was given prescriptions for Toradol and Zofran as well as instructions for follow-up with primary care and urology. She was discharged with strict return precautions after all questions were answered Critical Care <Karan Trinidad MD - Last Filed: 07/30/24 17:41> Critical Care Time Critical Care Time: No
--- NOTE | 2024-07-29 14:02 | PC.NURSE ---
DR SALINAS AT BEDSIDE
--- NOTE | 2024-07-29 14:08 | CT_ITS ---
FINAL REPORT TECHNIQUE: Axial images through the abdomen and pelvis were performed without contrast. This study was performed with techniques to keep radiation doses as low as reasonably achievable, (ALARA). Individualized dose reduction techniques using automated exposure control or adjustment of mA and/or kV according to the patient's size were employed. CLINICAL HISTORY: L flank pain, dysuria COMPARISON: None FINDINGS: Abdomen: The lung bases are clear. There is moderate fatty infiltration of the liver. The gallbladder is present. The spleen, pancreas, and adrenals are unremarkable. Moderate left hydronephrosis and hydroureter are present to the level of the UVJ. There is a 2 mm obstructing UVJ stone, best seen on image #115 of series 3. Pelvis: The urinary bladder is decompressed. The appendix is not visualized. There is no pelvic mass or inflammation. IMPRESSION: Moderate left hydronephrosis and hydroureter secondary to a 2 mm obstructing UVJ stone. Moderate fatty infiltration of the liver. Reviewed, Interpreted and Dictated by Tommy Augustine MD Transcribed by Maryanne Stanton Authenticated and [facility]
[2024-07-29] MEDS: LACTATED RINGERS 1000ML 1,000 ML 999 ML IV (14:16)
[2024-07-29] MEDS: KETOROLAC 30MG/ML VIAL 15 MG IV (14:16)
[2024-07-29] MEDS: ONDANSETRON 4MG/2ML VIAL 4 MG IV (14:16)
[2024-07-29 14:30] LABS: Basophils # 0.1 K/mm3 (0-0.2); Basophils % 0.6 % (0.1-2.0); Eosinophils # 0.1 K/mm3 (0.0-0.4); Eosinophils % 0.5 % (0.1-12.0); Hematocrit 46.1 % (37.0-47.0); Hemoglobin 15.2 g/dL (12.2-16.2); Lymphocytes # 2.2 K/mm3 (0.7-4.5); Lymphocytes % 21.9 % (10-50); Mean Corpuscular Hemoglobin 30.1 pg (27.0-31.2); Mean Corpuscular Volume 91.3 fl (81-99); Mean Platelet Volume 8.8 fl (7.4-10.4); Monocytes # 0.4 K/mm3 (0.1-1.0); Monocytes % 4.3 % (1.7-9.3); Neutrophils # 7.1 K/mm3 (1.8-7.8); Neutrophils % 72.7 % (37.0-80.0); Platelet Count 329 K/mm3 (142-424); Red Blood Count 5.05 M/mm3 (4.20-5.40); Red Cell Distribution Width 13.8 % (11.5-17.5); White Blood Count 9.8 K/mm3 (4.8-10.8)
[2024-07-29 14:31] LABS: Albumin Level 4.5 g/dl (3.5-5.0); Chloride 106 mmol/L (98-107); Potassium 3.9 mmoL/L (3.5-5.1); Sodium 137 mmol/L (136-145)
[2024-07-29 14:33] LABS: Blood Urea Nitrogen 12 mg/dl (7-17); Creatinine Clearance Estimated 98 mL/min (50-200); Estimated Glomerular Filt Rate 78 ml/min (>60); GFR (African American) 94 ML/MIN (>60)
[2024-07-29 14:34] LABS: Alanine Aminotransferase 36 U/L (12-78); Albumin/Globulin Ratio 1.6 (1.1-1.8); Alkaline Phosphatase 60 U/L (38-126); Anion Gap 8.9 mEq/L (5-15); Aspartate Amino Transferase 32 U/L (14-36); Calcium 9.3 mg/dl (8.4-10.2); Carbon Dioxide 26 mmol/L (22.0-30.0); Globulin 2.8 g/dL (1.3-3.2); Glucose 129 mg/dl (74-100); Total Protein,Serum 7.3 g/dl (6.3-8.2)
[2024-07-29 14:53] LABS: Lipase 78 U/L (23-300)
[2024-07-29 15:27] LABS: Microscopic, Urine URINE MICROSCOPIC (MICROSCOPIC)
[2024-07-29 15:28] LABS: Appearance,Urine CLEAR (Clear); Bilirubin,Urine Negative (Negative); Blood, Urine 3+ (Negative); Color,Urine YELLOW (Yellow); Glucose,Urine (UA) Negative (Negative); Ketones,Urine Negative (Negative); Leukocyte Esterase,Urine TRACE (Negative); Nitrate,Urine Negative (Negative); Protein,Urine Negative (Negative); Specific Gravity, Urine >= 1.030 (1.005-1.030); Urobilinogen,Urine 0.2 EU/dl (0.2)
[2024-07-29 15:34] LABS: HCG Qualitative, Serum Negative (Negative)
[2024-07-29 15:50] LABS: Bacteria,Urine 2+ /lpf; RBC,Urine TNTC #/hpf (0-3); Squamous Epithelial Cell,Urine 20-50 #/hpf (0-5)
[2024-07-29 16:09] VITALS: BP 95/55; PULSE 62; O2SAT 100
--- NOTE | 2024-07-29 16:14 | PC.NURSE ---
Rounded on pt. Pt asked for something to eat. Pt updated that we are unable to provide food at this time until we have scan results. Pt voiced understanding.
[2024-07-29 16:24] LABS: HIV (1&2) Antibody Rapid NONREACTIVE (NONREACTIVE)
[2024-07-29 16:30] VITALS: BP 105/51; PULSE 62; RESP 18; O2SAT 99
[2024-07-29] MEDS: OXYCODONE 5MG IMMEDIATE RELEASE TABLET 5 MG PO (16:44)
[2024-07-29] MEDS: TAMSULOSIN 0.4MG CAPSULE 0.4 MG PO (16:45)
[2024-07-29 17:21] VITALS: BP 116/74; PULSE 90; RESP 18; TEMP 36.7; TEMP 36.8; O2SAT 100; O2SAT 96
[2024-07-31 09:32] LABS: HCV Ab Non Reactive (Non Reactive)
== END 2024-07-29 17:22 | disposition home or self-care (01) ==
PROVIDERS: Emergency Medicine; Physician Assistant; Emergency Provider Emergency Medicine
DX: N13.0 Hydronephrosis with ureteropelvic junction obstruction (principal); N13.4 Hydroureter; M54.59 Other low back pain; R11.0 Nausea
CPT/HCPCS: 74176; 80053; 81001; 82370; 83690; 84703; 85025; 86803; 87389; 96361; 96374; 96375; 99284; J1885; J2405; J7120

== ENCOUNTER 2024-09-07 08:27 | Emergency (ER) | payer BC, SELFPAY ==
[2024-09-07 09:20] VITALS: BP 135/91; PULSE 91; RESP 17; TEMP 36.8; O2SAT 96; BMI 52.9
--- NOTE | 2024-09-07 09:20 | ED_ITS ---
Discharge Plan Disposition Patient Disposition: Home, Self-Care Condition: Good Prescriptions Prescriptions: New azithromycin [Zithromax] 250 mg tablet 250 mg PO UD DOSE PK Qty: 6 0RF Rx Instructions: Take two (2) tablets today, then one (1) tablet days #2 thru #5 methylprednisolone 4 mg Tablets,Dose Pack 4 mg PO DIRECTED 6 Days Qty: 21 0RF Rx Instructions: Take 1 pack as directed for 6 days rifymatiwyplplw-fzhisydsd-FT [Bromfed DM] 2-30-10 mg/5 mL Syrup 5 ml PO Q6H PRN (Reason: Cough) Qty: 240 0RF No Action hydroxyzine HCl 50 mg tablet 50 mg PO TID PRN (Reason: anxiety) 14 Days Qty: 42 0RF propranolol 80 mg tablet 80 mg PO DAILY Patient Comments: TAKE ONE TABLET BY MOUTH EVERY DAY Referrals Follow up/Referrals: Provider,Referral, MD [Primary Care Provider] - See instructions Activity Restrictions/Add. Instructions Additional Instructions/Restrictions: Drink plenty of fluids. Take tylenol or ibuprofen for pain or fever. Take the medications as directed. Follow up with your regular doctor. GO TO THE ER FOR ANY WORSENING SYMPTOMS Clinical Impressions Clinical Impression: Pharyngitis, Sinusitis Instructions Patient Instructions: Sinusitis, DI for Sinusitis Print Language Print Language: Palestinian Discharge ED Provider: Ascencion Alcocer [facility] [place] HPI General Stated complaint: sore throat, body aches Time Seen by Provider: 09/07/24 09:19 Related Data Home Medications ?Medication ?Instructions ?Recorded ?Confirmed propranolol 80 mg tablet 80 mg PO DAILY 06/28/24 09/07/24 Previous Rx's ?Medication ?Instructions ?Recorded hydroxyzine HCl 50 mg tablet 50 mg PO TID PRN anxiety 14 days 08/16/24 #42 tabs azithromycin 250 mg tablet 250 mg PO UD DOSE PK #6 tabs 09/07/24 (Zithromax) rfecsivwhvfynfi-kxjofklbgclaadz-PM 5 ml PO Q6H PRN Cough #240 mL 09/07/24 2 mg-30 mg-10 mg/5 mL oral syrup (Bromfed DM) methylprednisolone 4 mg tablets in 4 mg PO DIRECTED 6 days #21 tabs 09/07/24 a dose pack Allergies Allergy/AdvReac Type Severity Reaction Status Date / Time Penicillins Allergy Severe Anaphylaxis Verified 01/05/24 15:28 [facility] Disclaimer: The information contained in this section may have been updated after the patient was seen, as this information can be updated by other users. 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 (Updated 09/07/24 @ 09:50 by Ascencion Alcocer APRN) RSV bronchitis Viral URI with cough Candidal vaginitis UTI (urinary tract infection) Urinary tract infection Skin yeast infection Vaginal yeast infection Depression Anxiety Urinary tract infection Migraine Hypertension Social History Smoking Status: Current every day smoker alcohol intake: never current occupational status: employed Travel in the last 8 weeks: None ROS Obtained: Yes All systems reviewed & no additional complaints except as documented Constitutional Constitutional: Reports chills and Reports fever(s) Eyes Eyes: Denies eye discharge ENT Ears, Nose, Mouth, and Throat: Reports as per HPI Cardiovascular Cardiovascular: Denies chest pain Respiratory Respiratory: Denies chest congestion and Reports cough Gastrointestinal Gastrointestingal: Reports nausea; Denies abdominal pain, constipation, cr amping, diarrhea or vomiting Musculoskeletal Musculoskeletal: Denies arthralgias Integumentary/Breasts Skin/Breast: Denies rash Neurologic Neurologic: Denies paresthesias Physical Exam General General appearance: alert and in no apparent distress Eye Eye exam: Present normal appearance, PERRL and EOMI ENT ENT exam: Present mucous membranes moist and normal external ear exam Expanded ENT Exam External ear exam: Present normal external inspection TM/Canal exam: Bilateral TM: erythema and bulging Nose exam: Absent sinus tenderness Nasal speculum exam: Bilateral: normal Mouth exam: Present normal external inspection; Absent drooling Teeth exam: Present normal inspection Throat exam: Present tonsillar erythema and tonsillomegaly Neck Neck exam: Present normal inspection, full ROM and trachea midline; Absent tenderness, lymphadenopathy or thyromegaly Chest Chest inspection: Present normal inspection and symmetric chest wall rise; Absent tenderness or rash Respiratory Respiratory exam: Present normal lung sounds bilaterally; Absent respiratory distress, wheezes, stridor or accessory muscle use Cardiovascular Cardiovascular exam: Present regular rate, normal rhythm and normal heart sounds Abdominal Exam Abdominal exam: Present soft; Absent distention, tenderness, guarding, rebound or rigidity Extremities Exam Extremities exam: Present normal inspection, full ROM and normal capillary refill; Absent tenderness or calf tenderness Back Exam Back exam: Present normal inspection and full ROM; Absent tenderness Neurological Exam Neurological exam: Present alert and oriented X3 Psychiatric Psychiatric exam: Present normal affect and normal mood Skin Skin exam: Present warm, dry, intact and normal color Lymphatic Lymphatic Findings: no adenopathy Medical Decision Making Medical Records Medical records reviewed: No I reviewed the patient's medical records. Screening: Per USPSTF and CDC recommendations, given the prevalence of disease in our region, it is our hospital?s policy to screen for HIV and viral Hepatitis for a ll patients aged 18 and over and those with ongoing risk factors. Best Inquiry Pt receiving controlled substance: No Lab Data Lab results reviewed: Yes I reviewed the patient's lab results.
[2024-09-07 09:30] LABS: UTC Strep Screen (Rapid) Negative (Negative)
[2024-09-07 09:56] VITALS: BP 135/91; PULSE 91; RESP 17; TEMP 36.8; O2SAT 96
[2024-09-07 09:58] LABS: Coronavirus 19, PCR Not Detected (NotDetected); Influenza A, PCR Not Detected (NotDetected); Influenza B, PCR Not Detected (NotDetected)
== END 2024-09-07 09:57 | disposition home or self-care (01) ==
PROVIDERS: Emergency Provider Nurse Practitioner Family
DX: J02.9 Acute pharyngitis, unspecified (principal); J01.80 Other acute sinusitis
CPT/HCPCS: 87636; 87880; 99213; G0381

== ENCOUNTER 2024-10-22 08:18 | Emergency (ER) | payer BC, SELFPAY ==
[2024-10-22 09:06] LABS: Apearance,Urine Cloudy (Clear); Color,Urine Yellow (Yellow); PH,Urine 5.5 (5.0-8.5)
[2024-10-22 09:07] LABS: Bilirubin,Urine 1+ (Negative); Blood, Urine 4+ (Negative); Glucose,Urine (UA) Negative (Negative); Ketones,Urine Negative (Negative); Protein,Urine 3+ (Negative); UTC Leukocyte Esterase,Urine 1+ (Negative); UTC Nitrate,Urine Negative (Negative); Urobilinogen,Urine 0.2 EU/dl (0.2)
[2024-10-22 09:22] VITALS: BP 132/85; PULSE 96; RESP 20; TEMP 36.6; O2SAT 97; BMI 52.4
--- NOTE | 2024-10-22 09:23 | EXP.UTC ---
Discharge Plan Disposition Patient Disposition: Home, Self-Care Condition: Good Prescriptions Prescriptions: New phenazopyridine [Pyridium] 200 mg tablet 200 mg PO Q8H 2 Days Qty: 6 0RF ondansetron 4 mg Tablet,Disintegrating 4 mg PO Q8H PRN (Reason: Nausea) Qty: 12 0RF nitrofurantoin monohyd/m-cryst [Macrobid] 100 mg Capsule 100 mg PO BID Qty: 10 0RF Rx Instructions: must administer with a meal/food Discontinued azithromycin [Zithromax] 250 mg tablet 250 mg PO UD DOSE PK Qty: 6 0RF Rx Instructions: Take two (2) tablets today, then one (1) tablet days #2 thru #5 methylprednisolone 4 mg Tablets,Dose Pack 4 mg PO DIRECTED 6 Days Qty: 21 0RF Rx Instructions: Take 1 pack as directed for 6 days ointmjxtzbvsggr-aoryumafb-CL [Bromfed DM] 2-30-10 mg/5 mL Syrup 5 ml PO Q6H PRN (Reason: Cough) Qty: 240 0RF No Action hydroxyzine HCl 50 mg tablet 50 mg PO TID PRN (Reason: anxiety) 14 Days Qty: 42 0RF propranolol 80 mg tablet 80 mg PO DAILY Patient Comments: TAKE ONE TABLET BY MOUTH EVERY DAY Referrals Follow up/Referrals: Provider,Referral, MD [Primary Care Provider] - See instructions Activity Restrictions/Add. Instructions Additional Instructions/Restrictions: Drink plenty of fluids. Take tylenol or ibuprofen for pain or fever. Take the medications as directed. Follow up with your regular doctor. GO TO THE ER FOR ANY WORSENING SYMPTOMS The pyridium will make your urine turn orange, this is an expected side effect. It will stain your clothes if it comes into contact with them. We will culture the urine. That will tell what bacteria is causing your infection and which antibiotics will treat it best.This test takes 3 days to complete. Clinical Impressions Clinical Impression: UTI (urinary tract infection) Stand Alone Forms Stand Alone Forms: Work/School Release Instructions Patient Instructions: Urinary Tract Infection, Urine Culture, DI for Urinary Tract Infection (UTI), Phenazopyridine Print Language Print Language: Kazakh Discharge ED Provider: Ascencion Alcocer [facility] General Stated complaint: Pain and frequent urination Time Seen by Provider: 10/22/24 09:22 Related Data Home Medications ?Medication ?Instructions ?Recorded ?Confirmed propranolol 80 mg tablet 80 mg PO DAILY 06/28/24 09/07/24 Previous Rx's ?Medication ?Instructions ?Recorded hydroxyzine HCl 50 mg tablet 50 mg PO TID PRN anxiety 14 days 08/16/24 #42 tabs nitrofurantoin 100 mg PO BID #10 caps 10/22/24 monohydrate/macrocrystals 100 mg capsule (Macrobid) ondansetron 4 mg disintegrating 4 mg PO Q8H PRN Nausea #12 tabs 10/22/24 tablet phenazopyridine 200 mg tablet 200 mg PO Q8H 2 days #6 tabs 10/22/24 (Pyridium) Allergies Allergy/AdvReac Type Severity Reaction Status Date / Time Penicillins Allergy Severe Anaphylaxis Verified 01/05/24 15:28 [facility] Disclaimer: The information contained in this section may have been updated after the patient was seen, as this information can be updated by other users. 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 (Updated 10/22/24 @ 09:34 by Ascencion Alcocer APRN) RSV bronchitis Viral URI with cough Candidal vaginitis UTI (urinary tract infection) Urinary tract infection Skin yeast infection Vaginal yeast infection Depression Anxiety Urinary tract infection Migraine Hypertension Social History Smoking Status: Current every day smoker alcohol intake: never current occupational status: employed Travel in the last 8 weeks: None Have you lived/traveled outside US in past 30 days?: No Contact w/someone who lives/traveled outside US past 30 days?: No Exposure to someone with infectious disease in past 14 days?: No Do you have a fever (greater than 100.4 F or 38 C)?: No Have you tested positive for COVID-19: No Exposed to someone with COVID-19 in past 14 days?: No Do you have a sore throat?: No Do you have a cough?: No Do you have any weakness?: No Do you have any diarrhea?: No Are you experiencing any unusual bleeding?: No Do you have any muscle aches/pain?: No Do you have any abdominal pain?: No Are you experiencing loss of taste or smell?: No ROS Obtained: Yes All systems reviewed & no additional complaints except as documented Constitutional Constitutional: Reports system reviewed and no additional complaints, except as documented, Denies chills and Denies fever(s) Eyes Eyes: Denies eye discharge ENT Ears, Nose, Mouth, and Throat: Denies dysphagia, Denies sore throat and Denies throat swelling Cardiovascular Cardiovascular: Denies chest pain and Denies dyspnea Respiratory Respiratory: Denies chest congestion, Denies cough and Denies dyspnea Gastrointestinal Gastrointestingal: Denies abdominal pain, constipation, diarrhea, dysphagia, nausea or vomiting Genitourinary Female Genitourinary: Reports as per HPI, Reports dysuria, Reports urinary frequency, Denies urinary incontinence, Reports urinary hesitancy and Reports urinary urgency Musculoskeletal Musculoskeletal: Denies arthralgias and Reports back pain Integumentary/Breasts Skin/Breast: Denies rash Neurologic Neurologic: Denies paresthesias Allergic/Immunologic Allergic/Immunologic: Denies throat swelling Physical Exam General General appearance: alert and in no apparent distress Head Head exam: atraumatic and normocephalic Eye Eye exam: Present normal appearance, PERRL and EOMI ENT ENT exam: Present normal exam, mucous membranes moist, TM's normal bilaterally and normal external ear exam Neck Neck exam: Present normal inspection, full ROM and trachea midline; Absent tenderness, meningismus or lymphadenopathy Chest Chest inspection: Present normal inspection and symmetric chest wall rise; Absent tenderness Respiratory Respiratory exam: Present normal lung sounds bilaterally; Absent respiratory distress, wheezes or stridor Cardiovascular Cardiovascular exam: Present regular rate, normal rhythm and normal heart sounds Abdominal Exam Abdominal exam: Present soft and normal bowel sounds; Absent distention, tenderness, guarding, rebound, rigidity, incision, psoas sign, obturator sign, heel tap sign, Monge's sign, Rovsing's sign or tenderness at McBurney's Point Extremities Exam Extremities exam: Present normal inspection, full ROM and normal capillary refill; Absent tenderness, edema, joint swelling, calf tenderness or cyanosis Back Exam Back exam: Present normal inspection and full ROM; Absent tenderness, CVA tenderness (R) or CVA tenderness (L) Neurological Exam Neurological exam: Present alert, oriented X3 and normal gait Psychiatric Psychiatric exam: Present normal affect and normal mood Skin Skin exam: Present warm, dry, intact and normal color Lymphatic Lymphatic Findings: no adenopathy Medical Decision Making Medical Records Medical records reviewed: No I reviewed the patient's medical records. Screening: Per USPSTF and CDC recommendations, given the prevalence of disease in our region, it is our hospital?s policy to screen for HIV and viral Hepatitis for all patients aged 18 and over and those with ongoing risk factors. Best Inquiry Pt receiving controlled substance: No Lab Data Lab results reviewed: Yes I reviewed the patient's lab results. Lab Results 10/22/24 09:05: Urine Color Yellow, Urine Appearance Cloudy, Urine pH 5.5, Ur Specific Surveyor 1.030, Urine Protein 3+, Urine Glucose (UA) Negative, Urine Ketones Negative, Urine Blood 4+, Urine Nitrate Negative, Urine Bilirubin 1+ A, Urine Urobilinogen 0.2, Ur Leukocyte Esterase 1+ A Orders (Tests/Meds): ORDERS Category Date Time Status Urine Culture Stat Micro 10/22/24 09:12 Received
[2024-10-22 09:37] VITALS: BP 132/85; PULSE 96; RESP 20; TEMP 36.6
--- NOTE | 2024-10-25 09:58 | PC.NURSE ---
URINE CULTURE REVIEWED BY Ashli PAYNE APRN, NO CHANGES NEEDED AT THIS TIME
--- NOTE | 2024-10-26 11:27 | PC.NURSE ---
REVIEWED URINE CULTURE WITH Ashli PAYNE APRN, NO CHANGES NEEDED AT THIS TIME
== END 2024-10-22 09:41 | disposition home or self-care (01) ==
PROVIDERS: Emergency Provider Nurse Practitioner Family
DX: N39.0 Urinary tract infection, site not specified (principal)
CPT/HCPCS: 81003; 87086; 87088; 87186; 99213; G0381

== ENCOUNTER 2024-11-10 09:42 | Emergency (ER) | payer MEDICAID, SELFPAY ==
[2024-11-10] VITALS (7 sets, daily range): BP systolic 127–133; BP diastolic 70–87; PULSE 74–88; RESP 16–20; TEMP 36.4–37; O2SAT 97–100; BMI 49.9
--- NOTE | 2024-11-10 10:32 | HMH.EDGENADL ---
Discharge Plan Disposition Patient Disposition: Home, Self-Care Chief Complaint: Urogenital-Female Prescriptions Prescriptions: No Action hydroxyzine HCl 50 mg tablet 50 mg PO TID PRN (Reason: anxiety) 14 Days Qty: 42 0RF propranolol 80 mg tablet 80 mg PO DAILY Patient Comments: TAKE ONE TABLET BY MOUTH EVERY DAY phenazopyridine [Pyridium] 200 mg tablet 200 mg PO Q8H 2 Days Qty: 6 0RF ondansetron 4 mg Tablet,Disintegrating 4 mg PO Q8H PRN (Reason: Nausea) Qty: 12 0RF nitrofurantoin monohyd/m-cryst [Macrobid] 100 mg Capsule 100 mg PO BID Qty: 10 0RF Rx Instructions: must administer with a meal/food Referrals Follow up/Referrals: Provider,Referral, MD [Primary Care Provider] - See instructions Clinical Impressions Clinical Impression: Abdominal pain, Vaginal bleeding Instructions Patient Instructions: DI for Urinary Tract Infection (UTI), DI for Urinary Tract Infection in Children Print Language Print Language: Sinhala Discharge ED Provider: Neal Calvo General Adult HPI General Chief complaint: Urogenital-Female Stated complaint: Lower abd pain, heavy bleeding Time Seen by Provider: 11/10/24 10:13 Mode of Arrival: EMS Source of Information: Patient Limitations: No Limitations Description of Symptoms (Recalled from ER Triage Doc. by RN): pt feels like her insides are falling out. period cramps,back pain. History of Present Illness HPI narrative: Patient is a 24-year-old female who presents emergency department for evaluation of abdominal pain. Patient states that her last menstrual period was in August and she has had a positive test at home, over the last 24 hours she began passing clots and has had a tearing sensation in her lower abdomen. No upper abdominal pain, no chest pain. She states that she has had false positive test before. Due to persistent symptoms she presents here for continued evaluation. Related Data Home Medications ?Medication ?Instructions ?Recorded ?Confirmed propranolol 80 mg tablet 80 mg PO DAILY 06/28/24 09/07/24 Previous Rx's ?Medication ?Instructions ?Recorded hydroxyzine HCl 50 mg tablet 50 mg PO TID PRN anxiety 14 days 08/16/24 #42 tabs nitrofurantoin 100 mg PO BID #10 caps 10/22/24 monohydrate/macrocrystals 100 mg capsule (Macrobid) ondansetron 4 mg disintegrating 4 mg PO Q8H PRN Nausea #12 tabs 10/22/24 tablet phenazopyridine 200 mg tablet 200 mg PO Q8H 2 days #6 tabs 10/22/24 (Pyridium) Allergies Allergy/AdvReac Type Severity Reaction Status Date / Time Penicillins Allergy Severe Anaphylaxis Verified 01/05/24 15:28 [facility] Disclaimer: The information contained in this section may have been updated after the patient was seen, as this information can be updated by other users. 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 (Updated 11/10/24 @ 12:24 by Neal Calvo MD) RSV bronchitis Viral URI with cough Candidal vaginitis UTI (urinary tract infection) Urinary tract infection Skin yeast infection Vaginal yeast infection Depression Anxiety Urinary tract infection Migraine Hypertension Social History Smoking Status: Current every day smoker alcohol intake: never current occupational status: employed Travel in the last 8 weeks: None Have you lived/traveled outside US in past 30 days?: No Contact w/someone who lives/traveled outside US past 30 days?: No Exposure to someone with infectious disease in past 14 days?: No Do you have a fever (greater than 100.4 F or 38 C)?: No Have you tested positive for COVID-19: No Exposed to someone with COVID-19 in past 14 days?: No Do you have a sore throat?: No Do you have a cough?: No Do you have any weakness?: No Do you have any diarrhea?: No Are you experiencing any unusual bleeding?: No Do you have any muscle aches/pain?: No Do you have any abdominal pain?: Yes Are you experiencing loss of taste or smell?: No ROS Obtained: Yes Systems reviewed as appropriate & no additional complaints except as documented Physical Exam General General appearance: alert Comment: Appearing in pain in bed Head Head exam: atraumatic and normocephalic Eye Eye exam: Present PERRL ENT ENT exam: Present mucous membranes moist Neck Neck exam: Present normal inspection Chest Chest inspection: Present normal inspection and symmetric chest wall rise Respiratory Respiratory exam: Present normal lung sounds bilaterally; Absent respiratory distress Cardiovascular Cardiovascular exam: Present regular rate and normal rhythm Abdominal Exam Abdominal exam: Present soft and tenderness (Mild, suprapubic); Absent guarding or rebound Extremities Exam Extremities exam: Present normal inspection Neurological Exam Neurological exam: Present alert Psychiatric Psychiatric exam: Present normal affect Skin Skin exam: Present warm and dry Medical Decision Making Medical Records Screening: Per USPSTF and CDC recommendations, given the prevalence of disease in our region, it is our hospital?s policy to screen for HIV and viral Hepatitis for all patients aged 18 and over and those with ongoing risk factors. Best Inquiry Pt receiving controlled substance: No Vital Signs: 11/10/24 09:44 11/10/24 09:49 11/10/24 10:00 Temperature 97.5 F L Temperature Source Oral Pulse Rate 82 79 Pulse Rate [Right] 82 Respiratory Rate 20 Blood Pressure 131/87 127/76 Blood Pressure [Right Arm] 131/87 Blood Pressure Mean 101 Blood Pressure Mean [Right Arm] 101 02 Sat by Pulse Oximetry 98 98 98 Oxygen Delivery Method Room Air Room Air Room Air 11/10/24 10:31 11/10/24 11:00 Temperature Temperature Source Pulse Rate 80 Pulse Rate [Right] Respiratory Rate Blood Pressure 131/85 133/82 Blood Pressure [Right Arm] Blood Pressure Mean 106 Blood Pressure Mean [Right Arm] 02 Sat by Pulse Oximetry 97 98 Oxygen Delivery Method Room Air Room Air Lab Data Lab Results 11/10/24 10:00: WBC 9.8, RBC 5.31, Hgb 15.7, Hct 44.1, MCV 83.1, MCH 29.6, MCHC 35.6 H, RDW 11.9, Plt Count 345, MPV 10.8 H, Neut % (Auto) 61.0, Lymph % (Auto) 28.3, [place] % (Auto) 7.7, Eos % (Auto) 2.0, Baso % (Auto) 0.7, Neut # (Auto) 6.0, Lymph # (Auto) 2.8, [place] # (Auto) 0.8, Eos # (Auto) 0.2, Baso # (Auto) 0.1, Sodium 139, Potassium 3.8, Chloride 105, Carbon Dioxide 24, Anion Gap 13.8, BUN 9, Creatinine 0.80, Estimated Creat Clear 98, Estimated GFR 89, Est GFR ( Amer) 108, Glucose 101 H, Calcium 9.2, Total Bilirubin 0.7, AST 36, ALT 37, Alkaline Phosphatase 52, Total Protein 7.1, Albumin 4.2, Globulin 2.9, Albumin/Globulin Ratio 1.4, Lipase 85, Serum HCG, Qual Negative, HCG, Quant < 2 11/10/24 10:00 11/10/24 10:00 Orders (Tests/Meds): ED MEDICATIONS Discontinued Medications Generic Name Dose Route Start Last Admin Trade Name Karina PRN Reason Stop Dose Admin Acetaminophen 1,000 mg 11/10/24 10:31 11/10/24 10:48 Acetaminophen 1,000mg/100ml Vial IV 11/10/24 10:32 1,000 mg ONCE ONE Administration Morphine Sulfate 4 mg 11/10/24 10:31 11/10/24 10:48 Morphine 4mg/Ml Syringe IV 11/10/24 10:32 4 mg ONCE ONE Administration ORDERS Category Date Time Status CT abdomen pelvis w con Stat Cat Scan 11/10/24 11:46 Ordered CBC w/Auto Diff [Complete Blood Count Auto Diff] Stat Lab 11/10/24 10:00 Completed CMP [Comprehensive Metabolic Panel] Stat Lab 11/10/24 10:00 Completed HCG Qualitative, Serum Stat Lab 11/10/24 10:00 Completed HCG,Quantitative Stat Lab 11/10/24 10:00 Completed Hep C Ab with Reflex to RNA Stat Lab 11/10/24 10:00 Received Lipase Stat Lab 11/10/24 10:00 Completed UA [Urinalysis and Microscopic] Stat Lab 11/10/24 10:30 Ordered Medical Decision Narrative: In summary patient is a 24-year-old female past medical history described above who presents emergency department for evaluation of possible vaginal bleeding. Patient is hemodynamically stable and nontoxic-appearing upon arrival, appearing in pain, afebrile. Patient has mildly tender suprapubic region, no focal severe tenderness in any other areas of the abdomen. My concern currently is for causes of vaginal bleeding such as threatened , ectopic , among others. Differential also includes causes of non vaginal bleeding and less likely intra-abdominal pathology. Initial workup will be conducted with hematologic labs, urinalysis, hCG. After hCG is back transvaginal ultrasound will be obtained. Initial interventions include Zofran, morphine, IV Tylenol. Initial workup reviewed by me, no significant leukocytosis, no JENNY or critical electrolyte abnormality, lipase normal, hCG undetectably low. On repeat evaluation patient had large resolution of symptoms. She did not have any tenderness in her abdomen on my exam. Shared decision making discussion was had at bedside over contrasted CT as she is very hesitant to receive contrast for multiple personal reasons as she is afraid. I informed the patient at length with radiology supervisor present over to all the possibilities of contrast administration and that I currently recommended however given that she is not tender anymore and her labs are nonactionable she can be discharged with strict return precautions although I do not know fully what is causing her abdominal pain it could be just normal menses. Patient prefers to proceed with outpatient management at this time does not want to proceed with imaging. This is reasonable. Patient was given multiple extensive return precautions and verbalized understanding. Patient is appropriate for discharge at this time. Critical Care Critical Care Time Critical Care Time: No
--- NOTE | 2024-11-10 10:36 | PC.NURSE ---
PT WAS GIVEN ICE CHIPS
[2024-11-10 10:38] LABS: Basophils # 0.1 K/mm3 (0-0.2); Basophils % 0.7 % (0.1-2.0); Eosinophils # 0.2 K/mm3 (0.0-0.4); Hematocrit 44.1 % (37.0-47.0); Hemoglobin 15.7 g/dL (12.2-16.2); Lymphocytes # 2.8 K/mm3 (0.7-4.5); Lymphocytes % 28.3 % (10-50); Mean Corpuscular HGB Conc 35.6 g/dL (31.8-35.4); Mean Corpuscular Hemoglobin 29.6 pg (27.0-31.2); Mean Corpuscular Volume 83.1 fl (81-99); Mean Platelet Volume 10.8 fl (7.4-10.4); Monocytes # 0.8 K/mm3 (0.1-1.0); Monocytes % 7.7 % (1.7-9.3); Platelet Count 345 K/mm3 (142-424); Red Blood Count 5.31 M/mm3 (4.20-5.40); Red Cell Distribution Width 11.9 % (11.5-17.5); White Blood Count 9.8 K/mm3 (4.8-10.8)
[2024-11-10 10:40] LABS: Albumin Level 4.2 g/dl (3.5-5.0); Chloride 105 mmol/L (98-107); Potassium 3.8 mmoL/L (3.5-5.1); Sodium 139 mmol/L (136-145)
[2024-11-10 10:43] LABS: Alanine Aminotransferase 37 U/L (12-78); Albumin/Globulin Ratio 1.4 (1.1-1.8); Alkaline Phosphatase 52 U/L (38-126); Anion Gap 13.8 mEq/L (5-15); Aspartate Amino Transferase 36 U/L (14-36); Bilirubin,Total 0.7 mg/dl (0.2-1.3); Blood Urea Nitrogen 9 mg/dl (7-17); Calcium 9.2 mg/dl (8.4-10.2); Carbon Dioxide 24 mmol/L (22.0-30.0); Creatinine Clearance Estimated 98 mL/min (50-200); Estimated Glomerular Filt Rate 89 ml/min (>60); GFR (African American) 108 ML/MIN (>60); Globulin 2.9 g/dL (1.3-3.2); Glucose 101 mg/dl (74-100); Lipase 85 U/L (23-300); Total Protein,Serum 7.1 g/dl (6.3-8.2)
[2024-11-10] MEDS: MORPHINE 4MG/ML SYRINGE 4 MG IV (10:48)
[2024-11-10] MEDS: ACETAMINOPHEN 1,000MG/100ML VIAL 1000 MG IV (10:48)
[2024-11-10 10:52] LABS: HCG Qualitative, Serum Negative (Negative)
[2024-11-10 11:11] LABS: HCG,Quantitative < 2 mIU/ml (0-5.42)
--- NOTE | 2024-11-10 12:22 | PC.NURSE ---
PT RETURNED FROM CT
[2024-11-10 12:28] LABS: Microscopic, Urine URINE MICROSCOPIC (MICROSCOPIC)
[2024-11-10 12:30] LABS: Appearance,Urine CLOUDY (Clear); Blood, Urine 3+ (Negative); Color,Urine YELLOW (Yellow); Glucose,Urine (UA) Negative (Negative); Ketones,Urine Negative (Negative); Leukocyte Esterase,Urine Negative (Negative); Nitrate,Urine Negative (Negative); Protein,Urine TRACE (Negative); Specific Gravity, Urine >= 1.030 (1.005-1.030); Urobilinogen,Urine 0.2 EU/dl (0.2)
[2024-11-10 12:32] LABS: Bilirubin,Urine 1+ (Negative)
[2024-11-10 12:41] LABS: Bacteria,Urine 1+ /lpf; RBC,Urine 20-50 #/hpf (0-3)
[2024-11-10 12:42] LABS: Trichomonas,Urine 1+ /lpf
--- NOTE | 2024-11-10 12:48 | PC.NURSE ---
DR MENON AT BEDSIDE TO UPDATE PT
[2024-11-10] MEDS: GENTAMICIN 80 MG/2 ML VIAL 240 MG IM (13:07)
[2024-11-10] MEDS: AZITHROMYCIN 250MG TABLET 2000 MG PO (13:08)
[2024-11-10] MEDS: ONDANSETRON 4MG ODT 4 MG SL (13:08)
[2024-11-12 05:53] LABS: HCV Ab Non Reactive (Non Reactive)
== END 2024-11-10 13:25 | disposition home or self-care (01) ==
PROVIDERS: Emergency Provider Emergency Medicine
DX: A59.00 Urogenital trichomoniasis, unspecified (principal); R10.30 Lower abdominal pain, unspecified; N93.9 Abnormal uterine and vaginal bleeding, unspecified
CPT/HCPCS: 80053; 81001; 83690; 84702; 84703; 85025; 86803; 96372; 96374; 96375; 99283; J0131; J1580; J2270; Q0162

== ENCOUNTER 2024-11-22 11:08 | Emergency (ER) | payer MEDICAID, SELFPAY ==
[2024-11-22 11:20] VITALS: BP 123/87; PULSE 90; RESP 18; TEMP 36.8; O2SAT 97; BMI 51.7
--- NOTE | 2024-11-22 11:28 | ED_ITS ---
Discharge Plan Disposition Patient Disposition: Home, Self-Care Condition: Good Prescriptions Prescriptions: No Action lidocaine 5 % ointment 1 applic topical DAILY Qty: 30 2RF Rx Instructions: Apply to affected area 4 times a day, as needed. Classic 28 mg iron- 800 mcg tablet 1 tab PO DAILY Qty: 30 11RF hydroxyzine HCl 50 mg tablet 50 mg PO TID PRN (Reason: anxiety) 14 Days Qty: 42 0RF propranolol 80 mg tablet 80 mg PO DAILY Patient Comments: TAKE ONE TABLET BY MOUTH EVERY DAY Referrals Follow up/Referrals: Demond Lowery MD [Staff Physician] - 11/22/24 2:30 am ProviderEliana MD [Primary Care Provider] - See instructions Activity Restrictions/Add. Instructions Additional Instructions/Restrictions: You have an appointment today with Dr Lowery in the OBGYN clinic here on [address] make sure to keep that appointment Make sure that you and your Partner completes medication Further instructions per your visit with Dr Lowery later today Clinical Impressions Clinical Impression: Vaginal pain Instructions Patient Instructions: Metronidazole Print Language Print Language: Thai Discharge ED Provider: Arely Peres [facility] General Stated complaint: genital tear bleeding/painful Mode of Arrival: Ambulatory Source of Information: Patient Limitations: No Limitations Time Seen by Provider: 11/22/24 11:29 Description of Symptoms (Recalled from Triage Doc. by RN): PATIENT C/O TEAR TO VAGINAL OPENING THAT HAPPENED FRIDAY NIGHT HEENT Symptoms (Recalled from RN notes): No Resp Symptoms (Recalled from RN notes): No Skin Symptoms (Recalled from RN notes): No MS Symptoms (Recalled from RN notes): No Functional Status (Recalled from RN notes): WNL History of Present Illness Provider Complaint: Patient states that her and her was having intercourse over the weekend and they was getting spicy and he accidently tore her vagina states since then she has been having pain and discomfort and some bleeding from the area States it hurts when she sits, wipes and just hurts in general States that also she was recently dx with Trichomoniasis and was prescribed Metronidazole but only got 2 doses and she accidently left the medication in [place] wanting to get more medication Related Data Home Medications ?Medication ?Instructions ?Recorded ?Confirmed propranolol 80 mg tablet 80 mg PO DAILY 06/28/24 11/22/24 Previous Rx's ?Medication ?Instructions ?Recorded hydroxyzine HCl 50 mg tablet 50 mg PO TID PRN anxiety 14 days 08/16/24 #42 tabs lidocaine 5 % topical ointment 1 applic topical DAILY #30 grams 11/22/24 vits no.126-ferrous fum 1 tab PO DAILY #30 tabs 11/22/24 28 mg iron-folic acid 800 mcg tablet (Classic ) Allergies Allergy/AdvReac Type Severity Reaction Status Date / Time Penicillins Allergy Severe Anaphylaxis Verified 11/22/24 13:44 Worker's Comp Is this a Worker's Comp case?: No PFS PFS Disclaimer: The information contained in this section may have been updated after the patient was seen, as this information can be updated by other users. 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 (Updated 11/22/24 @ 17:12 by Demond Lowery MD) RSV bronchitis Viral URI with cough Candidal vaginitis UTI (urinary tract infection) Urinary tract infection Skin yeast infection Vaginal yeast infection Depression Anxiety Urinary tract infection Migraine Hypertension Surgical History (Updated 11/22/24 @ 13:45 by Brian Yao MA) No significant past surgical history Social History Smoking Status: Current every day smoker alcohol intake: never current occupational status: employed Travel in the last 8 weeks: None ROS Obtained: Yes All systems reviewed & no additional complaints except as documented and Yes Systems reviewed as appropriate & no additional complaints except as documented Constitutional Constitutional: Reports system reviewed and no additional complaints, except as documented and Reports as per HPI ENT Ears, Nose, Mouth, and Throat: Reports system reviewed and no additional complaints, except as documented and Reports as per HPI Cardiovascular Cardiovascular: Reports system reviewed and no additional complaints, except as documented and Reports as per HPI Respiratory Respiratory: Reports system reviewed and no additional complaints, except as documented and Reports as per HPI Gastrointestinal Gastrointestingal: Reports system reviewed and no additional complaints, except as documented and as per HPI Genitourinary Female Genitourinary: Reports system reviewed and no additional complaints, except as documented, Reports as per HPI and Reports other (reports tear to vaginal opening with pain and bleeding since Friday) Physical Exam General General appearance: alert and in no apparent distress ENT ENT exam: Present normal exam, normal oropharynx, mucous membranes moist and TM's normal bilaterally Respiratory Respiratory exam: Present normal lung sounds bilaterally; Absent respiratory distress or wheezes Cardiovascular Cardiovascular exam: Present regular rate, normal rhythm and normal heart sounds Abdominal Exam Abdominal exam: Present soft and normal bowel sounds; Absent distention or tenderness External exam: Present other (deferred, patient reports bleeding, soreness, pain and tenderness after intercourse over weekend) Neurological Exam Neurological exam: Present alert, oriented X3 and normal gait Medical Decision Making Medical Records Screening: Per USPSTF and CDC recommendations, given the prevalence of disease in our region, it is our hospital?s policy to screen for HIV and viral Hepatitis for all patients aged 18 and over and those with ongoing risk factors. Best Inquiry Pt receiving controlled substance: No Best was queried for this patient: No Vital Signs: 11/22/24 11:20 Temperature 98.2 F Temperature Source Oral Pulse Rate [Left Brachial] 90 Respiratory Rate 18 Blood Pressure [Left Arm] 123/87 Blood Pressure Mean [Left Arm] 99 Blood Pressure Source [Left Arm] Automatic Cuff Blood Pressure Position [Left Arm] Sitting 02 Sat by Pulse Oximetry 97 Oxygen Delivery Method Room Air Medical Decision Narrative: Patient reports having vaginal tear with soreness, bleeding, tenderness and pain over the weekend Discussed with patient and called OB Clinic and they was able to get her in today at 230 for evaluation and patient agreed [facility] and will have the Exam by OBGYN in office later today Patient also requesting replacement Metronidazole as she only took 2 doses prior to leaving them in [place] Patient aware insurance likely will not cover medication and she will have to cover cost and discussed importance of taking and finishing this medication for Trichomoniasis
[2024-11-22 11:39] VITALS: BP 123/87; PULSE 90; RESP 18; TEMP 36.8; O2SAT 97
== END 2024-11-22 11:42 | disposition home or self-care (01) ==
PROVIDERS: Emergency Provider Nurse Practitioner
DX: R10.2 Pelvic and perineal pain (principal)
CPT/HCPCS: 99212; G0381

== ENCOUNTER 2025-03-20 14:03 | Emergency (ER) | payer MEDICAID, SELFPAY ==
--- NOTE | 2025-03-20 14:06 | ED_ITS ---
<Statement entered by Jeny Rivera DO - 03/21/25 15:09> I was consulted by the SERGIO, and we discussed the complexity of the problems being addressed. I approved the treatment and management plan for this patient's care in the emergency department, thus performing a substantive portion of the medical decision making. Jeny Rivera DO Discharge Plan Disposition Patient Disposition: Home, Self-Care Condition: Good Prescriptions Prescriptions: New cefdinir 300 mg capsule 300 mg PO BID 5 Days Qty: 10 0RF No Action lidocaine 5 % ointment 1 applic topical DAILY Qty: 30 2RF Rx Instructions: Apply to affected area 4 times a day, as needed. Classic 28 mg iron- 800 mcg tablet 1 tab PO DAILY Qty: 30 11RF hydroxyzine HCl 50 mg tablet 50 mg PO TID PRN (Reason: anxiety) 14 Days Qty: 42 0RF propranolol 80 mg tablet 80 mg PO DAILY Patient Comments: TAKE ONE TABLET BY MOUTH EVERY DAY Referrals Follow up/Referrals: Provider,Referral, MD [Primary Care Provider] - See instructions Activity Restrictions/Add. Instructions Additional Instructions/Restrictions: I sent a prescription to your pharmacy for an antibiotic for urinary tract infection. Regards to your you need to follow-up with your [facility]GI[facility] within 48 hours. If you have any continued new or worsening signs or symptoms follow-up with your PCP [facility]GI[facility] or return to the ER as needed. Clinical Impressions Clinical Impression: Urinary tract infection Qualifiers: Urinary tract infection type: site unspecified Hematuria presence: with hematuria Qualified Code(s): N39.0 - Urinary tract infection, site not specified Print Language Print Language: Sammarinese Discharge ED Provider: Miah Beavers General Adult HPI <TERE Adams - Last Filed: 03/20/25 16:29> General Chief complaint: Recheck/Abnormal Lab/Rx Stated complaint: wants preg test, cramping Time Seen by Provider: 03/20/25 14:05 History of Present Illness HPI narrative: Patient presents for evaluation of being and abdominal cramping. Patient states that her last period was sometime before February although she does not know exactly. She has taken several positive test since. Patient reports over the last week she has had some lower abdominal cramping but denies any bleeding or spotting. She does report a yucky vaginal discharge but denies any fever chills shortness of breath hemoptysis hematochezia melena tammy sea vomiting diarrhea. Related Data Home Medications ?Medication ?Instructions ?Recorded ?Confirmed propranolol 80 mg tablet 80 mg PO DAILY 06/28/24 11/22/24 Previous Rx's ?Medication ?Instructions ?Recorded hydroxyzine HCl 50 mg tablet 50 mg PO TID PRN anxiety 14 days 08/16/24 #42 tabs lidocaine 5 % topical ointment 1 applic topical DAILY #30 grams 11/22/24 vits no.126-ferrous fum 1 tab PO DAILY #30 tabs 11/22/24 28 mg iron-folic acid 800 mcg tablet (Classic ) cefdinir 300 mg capsule 300 mg PO BID 5 days #10 caps 03/20/25 Allergies Allergy/AdvReac Type Severity Reaction Status Date / Time Penicillins Allergy Severe Anaphylaxis Verified 11/22/24 13:44 [facility] <TERE Adams - Last Filed: 03/20/25 16:29> [facility] Disclaimer: The information contained in this section may have been updated after the patient was seen, as this information can be updated by other users. 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 (Updated 03/20/25 @ 16:14 by TERE Adams) RSV bronchitis Viral URI with cough Candidal vaginitis UTI (urinary tract infection) Urinary tract infection Skin yeast infection Vaginal yeast infection Depression Anxiety Urinary tract infection Migraine Hypertension Surgical History (Updated 11/22/24 @ 13:45 by Brian Yao MA) No significant past surgical history Social History Smoking Status: Never smoker alcohol intake: never current occupational status: employed Travel in the last 8 weeks?: None Have you lived/traveled outside US in past 30 days?: No Contact w/someone who lives/traveled outside US past 30 days?: No Exposure to someone with infectious disease in past 14 days?: No Do you have a fever (greater than 100.4 F or 38 C)?: No Have you tested positive for COVID-19?: No Exposed to someone with COVID-19 in past 14 days?: No Do you have a sore throat?: No Do you have a cough?: No Do you have any weakness?: No Do you have any diarrhea?: No Are you experiencing any unusual bleeding?: No Do you have any muscle aches/pain?: No Do you have any abdominal pain?: Yes Are you experiencing loss of taste or smell?: No <TERE Adams - Last Filed: 03/20/25 16:29> ROS Obtained: Yes Systems reviewed as appropriate & no additional complaints except as documented Physical Exam <TERE Adams - Last Filed: 03/20/25 16:29> General General appearance: alert and in no apparent distress Respiratory Respiratory exam: Present normal lung sounds bilaterally Cardiovascular Cardiovascular exam: Present regular rate Neurological Exam Neurological exam: Present alert and oriented X3 Medical Decision Making <TERE Adams - Last Filed: 03/20/25 16:29> Medical Records Medical records reviewed: Yes I reviewed the patient's medical records. Screening: Per USPSTF and CDC recommendations, given the prevalence of disease in our region, it is our hospital?s policy to screen for HIV and viral Hepatitis for all patients aged 18 and over and those with ongoing risk factors. Best Inquiry Pt receiving controlled substance: No Vital Signs: 03/20/25 14:15 03/20/25 15:26 Temperature 97.7 F Temperature Source Oral Pulse Rate [Right Radial] 92 H Respiratory Rate 16 Blood Pressure 125/78 Blood Pressure [Right Arm] 131/81 Blood Pressure Mean [Right Arm] 97 Blood Pressure Source [Right Arm] Automatic Cuff Blood Pressure Position [Right Arm] Sitting 02 Sat by Pulse Oximetry 97 Oxygen Delivery Method Room Air Lab Data Lab results reviewed: Yes I reviewed the patient's lab results. Lab Results 03/20/25 14:25: Urine Color Yellow, Urine Appearance Clear, Urine pH 6.0, Ur Specific [place] 1.015, Urine Protein Negative, Urine Glucose (UA) Negative, Urine Ketones Negative, Urine Blood Negative, Urine Nitrate Negative, Urine Bilirubin Negative, Urine Urobilinogen 0.2, Ur Leukocyte Esterase 2+ A, Urine RBC Occasional, Urine WBC 10-20, Ur Squamous Epith Cells 3-5, Urine Bacteria 2+ 03/20/25 14:45: HCG, Quant 141 H Orders (Tests/Meds): ED MEDICATIONS Discontinued Medications Generic Name Dose Route Start Last Admin Trade Name Freq PRN Reason Stop Dose Admin Cefdinir 300 mg 03/20/25 16:12 03/20/25 16:17 Cefdinir 300mg Capsule PO 03/20/25 16:13 300 mg ONCE ONE Administration ORDERS Category Date Time Status POCUS Point of Care (ER Only) Stat Exams 03/20/25 14:17 Taken HCG,Quantitative Stat Lab 03/20/25 14:45 Completed UA [Urinalysis and Microscopic] Stat Lab 03/20/25 14:25 Completed Urine Chlam/Gono/Trich, [place] Stat Lab 03/20/25 14:25 Received Urine Culture Stat Micro 03/20/25 14:25 Received Medical Decision Narrative: In summary patient is a 24-year-old female who presents to the emergency department for evaluation of positive home testing and lower abdominal cramping. Patient is hemodynamically stable upon arrival, afebrile. Physical exam is remarkable for a well-nourished well-developed 24-year-old female who otherwise in no acute distress. Abdomen is soft nontender no rebound or guarding no rigidity. She has some slight discomfort in the suprapubic area without rebound or guarding or rigidity.. Differential diagnosis includes urinary tract infection versus vaginal infection versus PID versus cramping etc. Initial workup will be conducted with urinalysis urine serum hCG quantitative and a POCUS. Initial interventions include deferred until workup complete. Patient is afebrile and other than cramping has no other systemic symptoms initial workup reviewed by me and her serum hCG quantitative is positive at 141 POCUS did not reveal any evidence of currently and urinalysis is positive for leukocyte Estrace on dipstick and microscopic exam shows occasional red blood cells 10-20 white cells 3-5 epithelial cells and 2+ bacteria. Given this positive test it appears to be very early. Pat ient advised to follow-up with [facility]USTRI[facility] HYGIENIST within 48 hours for recheck. If she has any continued new or worsening signs or symptoms to return to the ER as needed. Absent in a prescription for Omnicef to your pharmacy with first dose given here. <Jeny Rivera, - Last Filed: 03/20/25 14:44> Vital Signs: 03/20/25 14:15 03/20/25 15:26 Temperature 97.7 F Temperature Source Oral Pulse Rate [Right Radial] 92 H Respiratory Rate 16 Blood Pressure 125/78 Blood Pressure [Right Arm] 131/81 Blood Pressure Mean [Right Arm] 97 Blood Pressure Source [Right Arm] Automatic Cuff Blood Pressure Position [Right Arm] Sitting 02 Sat by Pulse Oximetry 97 Oxygen Delivery Method Room Air Lab Data Lab Results 03/20/25 14:25: Urine Color Yellow, Urine Appearance Clear, Urine pH 6.0, Ur Specific [place] 1.015, Urine Protein Negative, Urine Glucose (UA) Negative, Urine Ketones Negative, Urine Blood Negative, Urine Nitrate Negative, Urine Bilirubin Negative, Urine Urobilinogen 0.2, Ur Leukocyte Esterase 2+ A, Urine RBC Occasional, Urine WBC 10-20, Ur Squamous Epith Cells 3-5, Urine Bacteria 2+ 03/20/25 14:45: HCG, Quant 141 H Orders (Tests/Meds): ED MEDICATIONS Discontinued Medications Generic Name Dose Route Start Last Admin Trade Name Freq PRN Reason Stop Dose Admin Cefdinir 300 mg 03/20/25 16:12 03/20/25 16:17 Cefdinir 300mg Capsule PO 03/20/25 16:13 300 mg ONCE ONE Administration ORDERS Category Date Time Status POCUS Point of Care (ER Only) Stat Exams 03/20/25 14:17 Taken HCG,Quantitative Stat Lab 03/20/25 14:45 Completed UA [Urinalysis and Microscopic] Stat Lab 03/20/25 14:25 Completed Urine Chlam/Gono/Trich, [place] Stat Lab 03/20/25 14:25 Received Urine Culture Stat Micro 03/20/25 14:25 Received Procedures <Jeny Rivera DO - Last Filed: 03/20/25 14:44> Limited Ultrasound Findings:: Limited OB ultrasound Indication: Positive test Identified structures: [-Uterus -Left adnexa -Right adnexa -Pouch of Gurdeep] Findings: Uterus: No definitive IUP Right adnexa: Normal Left adnexa: Simple appearing fluid-filled cyst Cul de sac: Free fluid absent Impression: -IUP: Not visualized at this time -Ectopic : No ectopic visualized -Free fluid: Absent Images were saved to permanent archive The study was technically adequate CPT Transabdominal: 26067-91 This study was performed by me, and I personally interpreted all images/videos. Based on my clinical judgement, these images were adequate and did not necessitate further imaging. Critical Care <TERE Adams - Last Filed: 03/20/25 16:29> Critical Care Time Critical Care Time: No
[2025-03-20 14:15] VITALS: BP 131/81; PULSE 92; RESP 16; TEMP 36.5; O2SAT 97; BMI 52.7
[2025-03-20 14:30] LABS: Microscopic, Urine URINE MICROSCOPIC (MICROSCOPIC)
[2025-03-20 14:32] LABS: Appearance,Urine CLEAR (Clear); Bilirubin,Urine Negative (Negative); Blood, Urine Negative (Negative); Color,Urine YELLOW (Yellow); Glucose,Urine (UA) Negative (Negative); Ketones,Urine Negative (Negative); Leukocyte Esterase,Urine 2+ (Negative); Nitrate,Urine Negative (Negative); Protein,Urine Negative (Negative); Specific Gravity, Urine 1.015 (1.005-1.030); Urobilinogen,Urine 0.2 EU/dl (0.2)
[2025-03-20 14:48] LABS: Bacteria,Urine 2+ /lpf; RBC,Urine Occasional #/hpf (0-3)
[2025-03-20 15:26] VITALS: BP 125/78
[2025-03-20 15:32] LABS: HCG,Quantitative 141 mIU/ml (0-5.42)
[2025-03-20] MEDS: CEFDINIR 300MG CAPSULE 300 MG PO (16:17)
[2025-03-20 16:26] VITALS: BP 125/78; PULSE 92; RESP 20; TEMP 36.5; O2SAT 97
[2025-03-20 17:28] LABS: Chlamydia trachomatis Negative (Negative); Neisseria gonorrhoeae Negative (Negative); Trichomonas vaginalis Negative (Negative)
== END 2025-03-20 16:27 | disposition home or self-care (01) ==
PROVIDERS: Emergency Medicine; Physician Assistant; Emergency Provider Emergency Medicine
DX: N39.0 Urinary tract infection, site not specified (principal); R10.819 Abdominal tenderness, unspecified site
CPT/HCPCS: 36415; 81001; 84702; 87086; 87491; 87591; 87661; 99284

== ENCOUNTER 2025-03-22 12:27 | Outpatient (CLI) | payer MEDICAID, SELFPAY ==
[2025-03-22 14:14] LABS: HCG,Quantitative 354 mIU/ml (0-5.42)
[2025-03-23 12:11] LABS: Progesterone 13.1 ng/mL (.)
== END 2025-03-22 23:59 | disposition home or self-care (01) ==
PROVIDERS: Visit Provider Nurse Practitioner Obstetrics & Gynecology
DX: Z32.01 Encounter for pregnancy test, result positive (principal)
CPT/HCPCS: 36415; 84144; 84702

== ENCOUNTER 2025-03-27 14:05 | Emergency (ER) | payer MEDICAID, SELFPAY ==
[2025-03-27 14:25] VITALS: BMI 53.2
--- NOTE | 2025-03-27 14:27 | PC.NURSE ---
Collected a urine sample and sent to the lab
[2025-03-27 14:32] LABS: Microscopic, Urine URINE MICROSCOPIC (MICROSCOPIC)
[2025-03-27 14:36] LABS: Appearance,Urine CLEAR (Clear); Bilirubin,Urine Negative (Negative); Blood, Urine Negative (Negative); Color,Urine YELLOW (Yellow); Glucose,Urine (UA) Negative (Negative); Ketones,Urine Negative (Negative); Leukocyte Esterase,Urine 2+ (Negative); Nitrate,Urine Negative (Negative); Protein,Urine Negative (Negative); Urobilinogen,Urine 0.2 EU/dl (0.2)
[2025-03-27 14:37] LABS: Urine Pregnancy, HCG Qual. Positive (Negative)
[2025-03-27 14:45] LABS: Bacteria,Urine 1+ /lpf
[2025-03-27 15:23] VITALS: BP 125/73; PULSE 76; RESP 16; TEMP 36.9; O2SAT 98; BMI 52.7
--- NOTE | 2025-03-27 15:41 | US_ITS ---
PROCEDURE INFORMATION: Exam: US , Transvaginal Exam date and time: 03/27/2025 4:23 PM Age: 24 years old Clinical indication: Lmp or gestational age (in weeks): 02/25/2025; Other: Cramping; ; Additional info: Abdominal cramping LABS AND CLINICAL REPORTS: Last menstrual period start date: 02/25/2025 TECHNIQUE: Imaging protocol: Real-time transvaginal obstetrical ultrasound of the maternal pelvis with image documentation. Transvaginal imaging was used for better evaluation of the fetus, adnexa, and/or cervix. COMPARISON: CT ABDOMEN PELVIS WO CON 07/29/2024 2:35 PM FINDINGS: Gestation: Single intrauterine gestation. No yolk sac or pole at this early date. BIOMETRY: Gestational age (AUA): 5 w 1 d Estimated due date (AUA): 11/26/2025 Mean sac diameter: 0.68 cm. MATERNAL: Uterus: Anteverted uterus has no myometrial masses. Right ovary/adnexa: Right ovary measures 4 cm in greatest diameter and has 2 small cysts. Color Doppler signals are present. No right adnexal masses. Left ovary/adnexa: Left ovary measures 1.7 cm and has color Doppler signals. No left adnexal masses. IMPRESSION: 1. Intrauterine gestation of uncertain viability. Gestational age 5 weeks 1 day. No pole or yolk sac at this early date. Ultrasound follow-up in 10-14 days may be useful if clinically warranted. 2. No sonographic evidence of ectopic .
--- NOTE | 2025-03-27 15:46 | HMH.EDGENADL ---
Discharge Plan Disposition Patient Disposition: Home, Self-Care Condition: Good Prescriptions Prescriptions: No Action PNV cmb#95-ferrous fumarate-FA [] 28 mg iron- 800 mcg tablet PO Patient Comments: TAKE ONE TABLET BY MOUTH EVERY DAY hydroxyzine HCl 25 mg tablet PO Patient Comments: TAKE ONE TABLET BY MOUTH THREE TIMES DAILY NEEDED FOR ANXIETY MAY CAUSE DROWSINESS nitrofurantoin monohyd/m-cryst [Macrobid] 100 mg capsule 100 mg PO BID 7 Days Qty: 14 0RF Rx Instructions: must administer with a meal/food propranolol 80 mg tablet 80 mg PO DAILY Patient Comments: TAKE ONE TABLET BY MOUTH EVERY DAY Referrals Follow up/Referrals: Demond Lowery MD [Staff Physician] - See instructions Provider,MD Eliana [Primary Care Provider] - See instructions Activity Restrictions/Add. Instructions Additional Instructions/Restrictions: Increase fluids and rest. Continue taking the Macrobid as prescribed by your PCP. Please call Dr. Hendrix on Friday for appointment to have a repeat ultrasound. Your hCG quant was 3047 and your ultrasound showed 4 weeks gestation currently. Clinical Impressions Clinical Impression: Dysuria, Abdominal pain in early Instructions Patient Instructions: DI for Acute Abdominal Pain, DI for Abdominal Pain -- Early Print Language Print Language: Romanian Discharge ED Provider: Miah Beavers General Adult HPI <Janiya Tran (ED), COMMAND AND CONTROL SYSTEMS INTEGRATOR - Last Filed: 03/27/25 17:17> General Chief complaint: Abdominal Pain Stated complaint: abd pain/cramping- 5 weeks Time Seen by Provider: 03/27/25 15:20 Mode of Arrival: Ambulatory Source of Information: Patient Description of Symptoms (Recalled from ER Triage Doc. by RN): pt presentswith concerns about her due to her hx of miscarriages. She states she was here on 03/20 confirmed oregnancy of 5 weeks and states I have been crampy and feeling like the baby isnt in the right place and the fingernails are scratching my insides. Pt denies any bleeding. History of Present Illness HPI narrative: This is a 24-year-old female who presents to the ED today with abdominal cramping that is constant. She says she gets no break from the cramping. She states that her has been confirmed on March 20 however she has been having increased cramping. She has no vaginal bleeding. 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 She has 2 kids. She has not had a successful in 5 years. Her TEXTILE ENGRAVER is Dr. Hendrix. Related Data Home Medications ?Medication ?Instructions ?Recorded ?Confirmed propranolol 80 mg tablet 80 mg PO DAILY 06/28/24 03/22/25 hydroxyzine HCl 25 mg tablet mg PO 03/22/25 03/22/25 vit no.95-ferrous tab PO 03/22/25 03/22/25 fumarate 28 mg-folic acid 800 mcg tablet () Previous Rx's ?Medication ?Instructions ?Recorded nitrofurantoin 100 mg PO BID 7 days #14 caps 03/24/25 monohydrate/macrocrystals 100 mg capsule (Macrobid) Allergies Allergy/AdvReac Type Severity Reaction Status Date / Time Penicillins Allergy Severe Anaphylaxis Verified 03/22/25 14:04 [facility] <Janiya Tran (ED), COMMAND AND CONTROL SYSTEMS INTEGRATOR - Last Filed: 03/27/25 17:17> [facility] Disclaimer: The information contained in this section may have been updated after the patient was seen, as this information can be updated by other users. 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 RSV bronchitis Viral URI with cough Candidal vaginitis UTI (urinary tract infection) Urinary tract infection Skin yeast infection Vaginal yeast infection Depression Anxiety Urinary tract infection Migraine Hypertension Surgical History No significant past surgical history Social History Smoking Status: Never smoker alcohol intake: never current occupational status: employed Travel in the last 8 weeks?: None Have you lived/traveled outside US in past 30 days?: No Contact w/someone who lives/traveled outside US past 30 days?: No Exposure to someone with infectious disease in past 14 days?: No Do you have a fever (greater than 100.4 F or 38 C)?: No Have you tested positive for COVID-19?: No Exposed to someone with COVID-19 in past 14 days?: No Do you have a sore throat?: No Do you have a cough?: No Do you have any weakness?: No Do you have any diarrhea?: No Are you experiencing any unusual bleeding?: No Do you have any muscle aches/pain?: No Do you have any abdominal pain?: Yes Are you experiencing loss of taste or smell?: No <Janiya Tran (ED), COMMAND AND CONTROL SYSTEMS INTEGRATOR - Last Filed: 03/27/25 17:17> ROS Obtained: Yes Systems reviewed as appropriate & no additional complaints except as documented Constitutional Constitutional: Reports as per HPI Physical Exam <Janiya Tran (ED), COMMAND AND CONTROL SYSTEMS INTEGRATOR - Last Filed: 03/27/25 17:17> General General appearance: alert and in no apparent distress Head Head exam: atraumatic and normocephalic Eye Eye exam: Present normal appearance, PERRL and EOMI ENT ENT exam: Present normal oropharynx and mucous membranes moist Neck Neck exam: Present full ROM and trachea midline Respiratory Respiratory exam: Present normal lung sounds bilaterally Cardiovascular Cardiovascular exam: Present regular rate, normal rhythm, normal heart sounds, +S1 and +S2 Abdominal Exam Abdominal exam: Present soft and normal bowel sounds Extremities Exam Extremities exam: Present full ROM and normal capillary refill Neurological Exam Neurological exam: Present alert, oriented X3 and normal gait Skin Skin exam: Present warm, dry and intact Medical Decision Making <Janiya Tran (ED), COMMAND AND CONTROL SYSTEMS INTEGRATOR - Last Filed: 03/27/25 17:17> Medical Records Screening: Per USPSTF and CDC recommendations, given the prevalence of disease in our region, it is our hospital?s policy to screen for HIV and viral Hepatitis for all patients aged 18 and over and those with ongoing risk factors. Best Inquiry Pt receiving controlled substance: No Best was queried for this patient: No Vital Signs: 03/27/25 15:23 03/27/25 17:22 Temperature 98.5 F 98.3 F Temperature Source Oral Pulse Rate 68 Pulse Rate [Right] 76 Respiratory Rate 16 18 Blood Pressure 116/72 Blood Pressure [Right Arm] 125/73 Blood Pressure Mean [Right Arm] 90 Blood Pressure Source Automatic Cuff Blood Pressure Source [Right Arm] Automatic Cuff Blood Pressure Position Sitting Blood Pressure Position [Right Arm] Sitting 02 Sat by Pulse Oximetry 98 Oxygen Delivery Method Room Air Room Air Lab Data Lab Results 03/27/25 14:30: Urine Color Yellow, Urine Appearance Clear, Urine pH 6.0, Ur Specific [place] 1.010, Urine Protein Negative, Urine Glucose (UA) Negative, Urine Ketones Negative, Urine Blood Negative, Urine Nitrate Negative, Urine Bilirubin Negative, Urine Urobilinogen 0.2, Ur Leukocyte Esterase 2+ A, Urine RBC None, Urine WBC 5-10, Ur Squamous Epith Cells 3-5, Urine Bacteria 1+, Urine HCG, Qual Positive 03/27/25 16:00: WBC 9.7, RBC 4.81, Hgb 14.4, Hct 42.0, MCV 87.3, MCH 29.9, MCHC 34.3, RDW 12.2, Plt Count 314, MPV 10.9 H, Neut % (Auto) 66.3, Lymph % (Auto) 25.4, [place] % (Auto) 7.0, Eos % (Auto) 0.7, Baso % (Auto) 0.4, Neut # (Auto) 6.4, Lymph # (Auto) 2.5, [place] # (Auto) 0.7, Eos # (Auto) 0.1, Baso # (Auto) 0.0, PT 10.7, INR 0.96, APTT 26.1, Sodium 135 L, Potassium 4.0, Chloride 107, Carbon Dioxide 21 L, Anion Gap 11.0, BUN 12, Creatinine 0.80, Estimated Creat Clear 98, Estimated GFR 89, Est GFR ( Amer) 108, Glucose 91, Calcium 9.6, Magnesium 2.0, Total Bilirubin 0.2, AST 24, ALT 29, Alkaline Phosphatase 56, Total Protein 6.8, Albumin 4.2, Globulin 2.6, Albumin/Globulin Ratio 1.6, Lipase 99, HCG, Quant 3047 H, Blood Type O Positive 03/27/25 16:00 03/27/25 16:00 Orders (Tests/Meds): ORDERS Category Date Time Status ABO/RH Type Stat BBK 03/27/25 16:00 Completed Beta HCG, Quant [HCG,Quantitative] Stat Lab 03/27/25 16:00 Completed CBC [Complete Blood Count Auto Diff] Stat Lab 03/27/25 16:00 Completed Comprehensive Metabolic Panel Stat Lab 03/27/25 16:00 Completed Lipase Stat Lab 03/27/25 16:00 Completed Magnesium Stat Lab 03/27/25 16:00 Completed PT INR [Prothrombin Time INR] Stat Lab 03/27/25 16:00 Completed PTT [Activated Partial Thrombo Time] Stat Lab 03/27/25 16:00 Completed Urinalysis and Microscopic Stat Lab 03/27/25 14:30 Completed Urine , HCG Qual. Stat Lab 03/27/25 14:30 Completed Urine Culture Stat Micro 03/27/25 14:30 Received US OB transvaginal Stat Ultrasound 03/27/25 15:41 Completed Medical Decision Narrative: Insert review patient is a 24-year-old female presenting to the emergency department for evaluation of lower abdominal cramping that has been constant patient has a history of 7 miscarriages. She is concerned that this is possibly ectopic.. Patient is hemodynamically stable and nontoxic-appearing upon arrival, afebrile. Differential diagnosis includes ectopic, early , among others. Workup will be conducted with hematologic labs, specific imaging, provocative tests. Initial inventions include ultrasound, basic labs. Initial workup reviewed by me shows 2+ leuks. Patient had ultrasound and psychiatric tech sees a small sac that is 4 weeks . She has to follow-up with her TEXTILE ENGRAVER/OB this week for an additional ultrasound. Patient is to complete taking occasions she is already on. <Miah Beavers MD - Last Filed: 03/27/25 19:34> Vital Signs: 03/27/25 15:23 03/27/25 17:22 Temperature 98.5 F 98.3 F Temperature Source Oral Pulse Rate 68 Pulse Rate [Right] 76 Respiratory Rate 16 18 Blood Pressure 116/72 Blood Pressure [Right Arm] 125/73 Blood Pressure Mean [Right Arm] 90 Blood Pressure Source Automatic Cuff Blood Pressure Source [Right Arm] Automatic Cuff Blood Pressure Position Sitting Blood Pressure Position [Right Arm] Sitting 02 Sat by Pulse Oximetry 98 Oxygen Delivery Method Room Air Room Air Lab Data Lab Results 03/27/25 14:30: Urine Color Yellow, Urine Appearance Clear, Urine pH 6.0, Ur Specific [place] 1.010, Urine Protein Negative, Urine Glucose (UA) Negative, Urine Ketones Negative, Urine Blood Negative, Urine Nitrate Negative, Urine Bilirubin Negative, Urine Urobilinogen 0.2, Ur Leukocyte Esterase 2+ A, Urine RBC None, Urine WBC 5-10, Ur Squamous Epith Cells 3-5, Urine Bacteria 1+, Urine HCG, Qual Positive 03/27/25 16:00: WBC 9.7, RBC 4.81, Hgb 14.4, Hct 42.0, MCV 87.3, MCH 29.9, MCHC 34.3, RDW 12.2, Plt Count 314, MPV 10.9 H, Neut % (Auto) 66.3, Lymph % (Auto) 25.4, [place] % (Auto) 7.0, Eos % (Auto) 0.7, Baso % (Auto) 0.4, Neut # (Auto) 6.4, Lymph # (Auto) 2.5, [place] # (Auto) 0.7, Eos # (Auto) 0.1, Baso # (Auto) 0.0, PT 10.7, INR 0.96, APTT 26.1, Sodium 135 L, Potassium 4.0, Chloride 107, Carbon Dioxide 21 L, Anion Gap 11.0, BUN 12, Creatinine 0.80, Estimated Creat Clear 98, Estimated GFR 89, Est GFR ( Amer) 108, Glucose 91, Calcium 9.6, Magnesium 2.0, Total Bilirubin 0.2, AST 24, ALT 29, Alkaline Phosphatase 56, Total Protein 6.8, Albumin 4.2, Globulin 2.6, Albumin/Globulin Ratio 1.6, Lipase 99, HCG, Quant 3047 H, Blood Type O Positive Orders (Tests/Meds): ORDERS Category Date Time Status ABO/RH Type Stat BBK 03/27/25 16:00 Completed Beta HCG, Quant [HCG,Quantitative] Stat Lab 03/27/25 16:00 Completed CBC [Complete Blood Count Auto Diff] Stat Lab 03/27/25 16:00 Completed Comprehensive Metabolic Panel Stat Lab 03/27/25 16:00 Completed Lipase Stat Lab 03/27/25 16:00 Completed Magnesium Stat Lab 03/27/25 16:00 Completed PT INR [Prothrombin Time INR] Stat Lab 03/27/25 16:00 Completed PTT [Activated Partial Thrombo Time] Stat Lab 03/27/25 16:00 Completed Urinalysis and Microscopic Stat Lab 03/27/25 14:30 Completed Urine , HCG Qual. Stat Lab 03/27/25 14:30 Completed Urine Culture Stat Micro 03/27/25 14:30 Received US OB transvaginal Stat Ultrasound 03/27/25 15:41 Completed Medical Decision Narrative: Insert review patient is a 24-year-old female presenting to the emergency department for evaluation of lower abdominal cramping that has been constant patient has a history of 7 miscarriages. She is concerned that this is possibly ectopic.. Patient is hemodynamically stable and nontoxic-appearing upon arrival, afebrile. Differential diagnosis includes ectopic, early , among others. Workup will be conducted with hematologic labs, specific imaging, provocative tests. Initial inventions include ultrasound, basic labs. Initial workup reviewed by me shows 2+ leuks. Patient had ultrasound and psychiatric tech sees a small sac that is 4 weeks . She has to follow-up with her TEXTILE ENGRAVER/OB this week for an additional ultrasound. Patient is to complete taking occasions she is already on. I was consulted by the SERGIO, and we discussed the complexity of the problems being addressed. I approved the treatment and management plan for this patient's care in the Emergency Department, thus performing a substantive portion of the medical decision making. Patient has no bleeding, but is O+ regardless. Gestational sac consistent with 4 weeks, no cardiac activity. Because patient has follow-up 2 days from now, I feel this is more than appropriate given she will be able to proceed formal ultrasound with OB, as well as repeat hCG, today which was 3047. Appropriate for discharge. Miah Beavers MD Critical Care <Janiya Tran (ED), COMMAND AND CONTROL SYSTEMS INTEGRATOR - Last Filed: 03/27/25 17:17> Critical Care Time Critical Care Time: No
--- NOTE | 2025-03-27 16:02 | PC.NURSE ---
called radiology to page ultrasound
[2025-03-27 16:19] LABS: Basophils % 0.4 % (0.1-2.0); Eosinophils # 0.1 Kmm3 (0.0-0.4); Eosinophils % 0.7 % (0.1-12.0); Hemoglobin 14.4 g/dL (12.2-16.2); Immature Granulocytes # 0.02 10^3uL; Immature Granulocytes % 0.2 %; Lymphocytes # 2.5 K/mm3 (0.7-4.5); Lymphocytes % 25.4 % (10-50); Mean Corpuscular HGB Conc 34.3 g/dL (31.8-35.4); Mean Corpuscular Hemoglobin 29.9 pg (27.0-31.2); Mean Corpuscular Volume 87.3 fl (81-99); Mean Platelet Volume 10.9 fl (7.4-10.4); Monocytes # 0.7 K/mm3 (0.1-1.0); Neutrophils # 6.4 K/mm3 (1.8-7.8); Neutrophils % 66.3 % (37.0-80.0); Nucleated Red Blood Cells # 0 10^3/uL; Nucleated Red Blood Cells % 0 %; Platelet Count 314 K/mm3 (142-424); Red Blood Count 4.81 M/mm3 (4.20-5.40); Red Cell Distribution Width 12.2 % (11.5-17.5); Red Cell Distribution Width-SD 38.9 fL; White Blood Count 9.7 K/mm3 (4.8-10.8)
[2025-03-27 16:22] LABS: Albumin Level 4.2 g/dl (3.5-5.0); Chloride 107 mmol/L (98-107); Sodium 135 mmol/L (136-145)
[2025-03-27 16:24] LABS: Blood Urea Nitrogen 12 mg/dl (7-17); Creatinine Clearance Estimated 98 mL/min (50-200); Estimated Glomerular Filt Rate 89 ml/min (>60); GFR (African American) 108 ML/MIN (>60)
[2025-03-27 16:25] LABS: Alanine Aminotransferase 29 U/L (12-78); Albumin/Globulin Ratio 1.6 (1.1-1.8); Alkaline Phosphatase 56 U/L (38-126); Aspartate Amino Transferase 24 U/L (14-36); Bilirubin,Total 0.2 mg/dl (0.2-1.3); Calcium 9.6 mg/dl (8.4-10.2); Carbon Dioxide 21 mmol/L (22.0-30.0); Globulin 2.6 g/dL (1.3-3.2); Glucose 91 mg/dl (74-100); Lipase 99 U/L (23-300); Total Protein,Serum 6.8 g/dl (6.3-8.2)
[2025-03-27 16:27] LABS: Activated Partial Thrombo Time 26.1 seconds (22.8-30.6); INR 0.96 (0.9-1.1); Prothrombin Time 10.7 seconds (10.1-12.5)
[2025-03-27 17:04] LABS: HCG,Quantitative 3047 mIU/ml (0-5.42)
[2025-03-27 17:22] VITALS: BP 116/72; PULSE 68; RESP 18; TEMP 36.8; O2SAT 98
== END 2025-03-27 17:22 | disposition home or self-care (01) ==
PROVIDERS: Nurse Practitioner; Student in an Organized Health Care Education/Training Program; Emergency Provider Emergency Medicine
DX: O26.891 Other specified pregnancy related conditions, first trimester (principal); R10.30 Lower abdominal pain, unspecified; R30.0 Dysuria; Z3A.01 Less than 8 weeks gestation of pregnancy; Z87.59 Personal history of other complications of pregnancy, childbirth and the puerperium
CPT/HCPCS: 36415; 76817; 80053; 81001; 81025; 83690; 83735; 84702; 85025; 85610; 85730; 86900; 86901; 87086; 99284

== ENCOUNTER 2025-03-29 14:46 | Outpatient (CLI) | payer MEDICAID, SELFPAY ==
--- NOTE | 2025-03-29 14:45 | US_ITS ---
PROCEDURE: US OB <= 14 WEEKS FETUS CLINICAL INDICATION: needs for dates and viability COMPARISON: No exams were available for comparison FINDINGS: Transvaginal sonographic images of the pelvis were obtained. From her last menstrual period she is 4weeks 4days. An intrauterine gestational sac is present and a pole is not yet seen. This correlates to a gestational age of 5weeks 3days. heart tones are not seen. Yolk sac is noted. The yolk sac measures 3.4mm. The right ovary is seen and appears normal. The left ovary is seen and appears normal. There is no fluid in the cul-de-sac. IMPRESSION: 1. Gestational sac within the uterine cavity with a yolk sac. A fetus is not yet seen. 2. Both ovaries are seen and appear normal. 3. Suggest a repeat scan in 1 week to confirm viability. Dictated by: Demond Lowery MD 03/29/2025 16:00 Demond Lowery MD in OV 03/29/2025 16:00
== END 2025-03-29 23:59 | disposition home or self-care (01) ==
LOC: RAD 14:47
PROVIDERS: PCP Radiology Diagnostic Radiology; Visit Provider Nurse Practitioner Obstetrics & Gynecology
DX: Z32.01 Encounter for pregnancy test, result positive (principal); Z3A.01 Less than 8 weeks gestation of pregnancy
CPT/HCPCS: 76801

== ENCOUNTER 2025-04-05 14:57 | Outpatient (CLI) | payer MEDICAID, SELFPAY ==
--- NOTE | 2025-04-05 15:00 | US_ITS ---
PROCEDURE: US OB <= 14 WEEKS FETUS CLINICAL INDICATION: 1 week f/u, dates and viability COMPARISON: US US OB <= 14 WEEKS FETUS from 03/29/2025 FINDINGS: Transvaginal sonographic images of the pelvis were obtained. From her last menstrual period she is 6weeks 3days. CATHIE 11/26/2025 An intrauterine gestational sac is present with a pole with a crown-rump length of 0.38cm This correlates to a gestational age of 6weeks 1day. heart tones are present with an FHR of 116bpm. Yolk sac is noted. The yolk sac measures 4.3mm. The right ovary is seen and appears normal. The left ovary is seen and appears normal. There is no fluid in the cul-de-sac. IMPRESSION: 1. Viable embryo within the uterine cavity. 2. Heart rate activity is seen. 3. Embryo measures 6 weeks 1 day and is consistent with her LMP. CATHIE will remain 11/26/2025. 4. Both ovaries are seen and appear normal. Dictated by: Demond Lowery MD 04/06/2025 07:17 Demond Lowery MD in OV 04/06/2025 07:17
== END 2025-04-05 23:59 | disposition home or self-care (01) ==
LOC: RAD 14:57
PROVIDERS: PCP Radiology Diagnostic Radiology; Visit Provider Nurse Practitioner Obstetrics & Gynecology
DX: Z34.91 Encounter for supervision of normal pregnancy, unspecified, first trimester (principal); Z3A.01 Less than 8 weeks gestation of pregnancy
CPT/HCPCS: 76801

== ENCOUNTER 2025-04-18 14:34 | Outpatient (CLI) | payer MEDICAID, SELFPAY ==
--- NOTE | 2025-04-18 14:45 | US_ITS ---
PROCEDURE: US OB <= 14 WEEKS FETUS CLINICAL INDICATION: Dates and Viability COMPARISON: US US OB TRANSVAGINAL from 03/27/2025 US US OB <= 14 WEEKS FETUS from 03/29/2025 US US OB <= 14 WEEKS FETUS from 04/05/2025 FINDINGS: Transvaginal sonographic images of the pelvis were obtained. From her last menstrual period she is 8weeks 2days. An intrauterine gestational sac is present with a pole with a crown-rump length of 1.9cm This correlates to a gestational age of 8weeks 4days. CATHIE will remain 11/26/2025 heart tones are present with an FHR of 183bpm. Yolk sac is noted. The yolk sac measures 6.8mm. The ovaries are not visualized today. Both right and left adnexae appear normal. There is no fluid in the cul-de-sac. IMPRESSION: 1. Viable embryo within the uterine cavity. heart rate activity is seen. 2. There has been good interval growth with the embryo currently 8 weeks 4 days. This is consistent with her last menstrual period and the due date will remain 11/26/2025. 3. Ovaries are not visualized. 4. No fluid in the cul-de-sac. Dictated by: Demond Lowery MD 04/18/2025 19:20 Demond Lowery MD in OV 04/18/2025 19:20
--- OUTSIDE RECORDS SUMMARY | 2025-04-18 14:49 | XMS_ITS | Clinical Summary ---
[facility] Address [address] [place] [address] Phone Care Team Providers Care Motor Hotel Manager Name Role Phone Malia DALE, [facility] [phone] Conditions or Problems No information available. Medications No information available. Medications Administered No information available. Allergies, Adverse Reactions, Alerts No information available. Results No information available. Plan of Care No information available. Procedures No information available. Vital Signs No information available. Immunizations No information available. Advance Directives No information available.
--- OUTSIDE RECORDS SUMMARY | 2025-04-18 14:50 | XMS_ITS | Patient Health Record ---
Author Organization [facility] Billing Info Address [address] [place], [place] [id number] Care Team Providers Care Freelance Makeup Artist Name Role Phone Cata, [phone] Barbara Primary Care Provider Unavailable Allergies No Known Allergies Reason For Referral No Information Medications Medication SIG (Take, Route, Frequency, Duration) Notes Start Date End Date Status Diclofenac Active Methocarbamol Active Social History Tobacco Use: Social History Observation Description Date Details (start date - stop date) Former Smoker NA - NA Tobacco Status: Question Answer Notes Patient is a former smoker 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 Plan Of Treatment No Information Insurance Providers Payer Name Payer Address Payer Phone Subscriber Number Group Number Insured Name Patient Relationship to Insured Coverage Start Date Coverage End Date [facility] [place] [facility] [address] [address] [place], [place] [id number] Anaya Guillory nd Self - patient is the insured 2 Medical (General) History 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 History ICD Code Atrial fibrillation Iron deficiency anemia Surgical History Surgery Date(Month/Year)
--- OUTSIDE RECORDS SUMMARY | 2025-04-18 14:50 | XMS_ITS | Clinical Summary ---
Author Organization Healthcare Address [address] [place] [address] Care Team Providers Care Operation Manager Name Role Phone Unavailable Primary Care Provider Unavailabl e Family History 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 Relation Name Comments Heart attack Other Relation Name Status Comments Other Social History Tobacco Use Types Packs/Day Years Used Date Smoking Tobacco: Former Comments Unknown Sex and Gender Information Value Date Recorded Sex Assigned at Not on file Legal Sex Female 6:31 PM EDT Gender Identity Not on file Sexual Orientation Not on file Last Filed Vital Signs Vital Sign Reading Time Taken Comments Blood Pressure - - Pulse - - Temperature - - Respiratory Rate - - Oxygen Saturation - - Inhaled Oxygen Concentration - - Weight 102 kg (224 lb 6.9 oz) 08/07/2017 10:32 A M EDT Height 168 cm (5' 6.14 ) 08/07/2017 10:32 AM EDT Body Mass Index 36.07 08/07/2017 10:32 AM EDT Plan of Treatment Not on file
== END 2025-04-18 23:59 | disposition home or self-care (01) ==
LOC: RAD 14:35
PROVIDERS: PCP Nurse Practitioner Obstetrics & Gynecology; Visit Provider Nurse Practitioner Obstetrics & Gynecology
DX: O36.80X0 Pregnancy with inconclusive fetal viability, not applicable or unspecified (principal); Z3A.08 8 weeks gestation of pregnancy
CPT/HCPCS: 76801

== ENCOUNTER 2025-05-15 21:19 | Emergency (ER) | payer MEDICAID, SELFPAY ==
--- OUTSIDE RECORDS SUMMARY | 2025-05-02 15:15 | XMS_ITS | Encounter Summary ---
Author Organization [facility] Address [address] [id number] Care Team Providers Care Noc Analyst Name Role Phone Pcp, No Primary Care Provider Unavailabl e Reason for Referral * Imaging (Routine) - Authorized Specialty Diagnoses / Procedures Referred By Migue devlin Referred To Contact Diagnoses 10 weeks gestation of Procedures OB US Nuchal Translucency Aren Song MD [address] [place] [address] Phone: tel: fax: Referral ID Status Reason Start Date Expiration Date V isits Requested Visits Authorized [id number] Authorized 05/02/2025 11/01/2026 1 1 * Imaging (Routine) - Closed Specialty Diagnoses / Procedures Referred By Migue devlin Referred To Contact Diagnoses Unsure of LMP (last menstrual period) as reason for ultrasound scan Procedures OB US Transvaginal Aren Song MD [address] [place] [address] Phone: tel: fax: Referral ID Status Reason Start Date Expiration Date Visits Re quested Visits Authorized [id number] Closed 05/02/2025 11/01/2026 1 1 Reason for Visit * Reason Comments Initial Visit Encounter Details Date Type Department Care Team (Late st Contact Info) Description 05/02/2025 3:15 PM EDT Initial Obstetrics & Gynecology [address] [place] [address] Aren Song MD [address] [place] [address] GA: 10w5d Social History Tobacco Use Types Packs/Day Years Used Date Smoking Tobacco: Former Cigarettes Smokeless Tobacco: Never Tobacco Cessation:Counseling Given: Not Answered Estimated Date of Delivery Comme nts Yes 11/23/2025 Based on Ultraso und Sex and Gender Information Value Date Recorded Sex Assigned at Not on file Legal Sex Female 6:31 PM EDT Gender Identity Not on file Sexual Orientation Not on file documented as of this encounter Last Filed Vital Signs Vital Sign Reading Time Taken Comments Blood Pressure 116/85 05/02/2025 3:44 PM EDT Pulse 107 05/02/2025 3:44 PM EDT Temperature 36.6 C (97.9 F) 05/02/2025 3:44 PM EDT Respiratory Rate 20 05/02/2025 3:44 PM EDT Oxygen Saturation 94% 05/02/2025 3:44 PM EDT Inhaled Oxygen Concentration - - Weight 144 kg (317 lb 7.4 oz) 05/02/2025 3:44 PM EDT Height 165.1 cm (5' 5 ) 05/02/2025 3:44 PM EDT Body Mass Index 52.83 05/02/2025 3:44 PM EDT documented in this encounter Miscellaneous Notes * Progress Notes - Aren Song MD - 05/02/2025 3:15 PM EDT Initial Note Subjective NOB at 14+1 weeks EGA NO VB MIN N PNV H/O x 2 Had NOB at [facility] OB History Para Term AB Living 9 2 1 1 5 2 SAB IAB Ectopic Multiple Live Births 5 2 # Outcome Date GA Lbr Nikolai/2nd Weight Sex Type Anes PTL Lv 9 Current 8 01/14/20 Vag-Spont SIMON 7 Term 02/26/17 Vag-Spont SIMON 6 5 SAB 4 SAB 3 SAB 2 SAB 1 SAB Past 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 She has a past medical history of Encounter for supervision of other normal , unspecified trimester and Hypertension. Past Surgical History She has a past surgical history that includes Other surgical history (N/A). Social History She reports that she has quit smoking. Her smoking use included cigarettes. She has never used smokeless tobacco. Family History Her family history includes Heart attack in an other family member; Hypertension in her mother; Tachycardia in her mother. Allergies She has no allergies on file. Current Medications She has a current medication list which includes the following prescription(s): hydroxyzine hcl, gnp , and propranolol la. Review of Systems Objective Physical Exam Visit Vitals BP 116/85 Pulse 107 Temp 36.6 ??C (97.9 ??F) Resp 20 Pregravid weight: Pregravid weight not on file Pregravid BMI: Could not be calculated Body mass index is 52.83 kg/m??. See encounter summary and flowsheet for exam details. NOB TVUS +IUP at 10+5 weeks EGA +CA Assessment/Plan Assessment & Plan Unsure of LMP (last menstrual period) as reason for ultrasound scan Orders: OB US Transvaginal; Future 10 weeks gestation of Orders: OB US Nuchal Translucency; Future Labs - Request EDUC NT + NIPT 2 weeks PNV Records request Happy! A total of 32 minutes was spent on this visit with at least more than 50% of the encounter spent incounseling and/or coordinating care including reviewing previous notes, counseling the patient on their identified issues as indicated in the note, discussing previous and/or ordered tests or imaging, prescribing/refilling medications, and documenting the findings in this note, as well as laying out a specific plan of action for this patient. documented in this encounter Plan of Treatment Upcoming Encounters Date Type Department Care Team (Late st Contact Info) Description 05/17/2025 1:45 PM EDT Routine Obstetrics & Gynecology [address] [place] [address] Aren Song MD [address] [place] [address] 05/17/2025 1:50 PM EDT Appointment [facility] [address] [place] [address] Scheduled Orders Name Type Priority Associated Diagnoses Orde r Schedule OB US Nuchal Translucency Imaging Routine 10 weeks gestation of Expected: 05/16/2025, Expires: 11/03/2026 documented as of this encounter Results * OB US Transvaginal (05/02/2025 3:22 PM EDT) Anatomical Region Laterality Modality Pelvis Ultrasound 05/02/2025 4:05 PM EDT Impressions 05/02/2025 4:15 PM EDT The OB Ultrasound you requested has been resulted. Please navigate to the Imaging tab in [employer] for review. This message has been generated by the interface. Narrative Procedure Note Aren Song MD - 05/02/2025 IMPRESSION: The OB Ultrasound you requested has been resulted. Please navigate to theImaging tab in [employer] for review. This message has been generated by [employer]. us Aren Song MD IMG OB US PROCEDURES Final Resu lt documented in this encounter Visit Diagnoses Diagnosis Unsure of LMP (last menstrual period) as reason for ultrasound scan- Primary Encounter for routine screening for malformation using ultrasonics 10 weeks gestation of Unsure of LMP (last menstrual period) as reason for ultrasound scan Encounter for routine screening for malformation using ultrasonics documented in this encounter Additional Health Concerns Assessment Noted Time A Body Mass Index follow-up plan has been documented for the patient 05/02/2025 4:23 PM EDT documented as of this encounter Care Teams Noc Analyst Relationship Specialty Start Date End Date Pcp, No [address] [place] [address] PCP - General Family Medicine 05/02/25 documented as of this encounter
--- OUTSIDE RECORDS SUMMARY | 2025-05-02 15:25 | XMS_ITS | Encounter Summary ---
Author Organization Healthcare Address [address] [place] [address] Care Team Providers Care Wheel Mill Operator Name Role Phone Pcp, No Primary Care Provider Unavailabl e Reason for Visit * Imaging (Routine) - Closed Specialty Diagnoses / Procedures Referred By Migue devlin Referred To Contact Diagnoses Unsure of LMP (last menstrual period) as reason for ultrasound scan Procedures OB US Transvaginal Aren Song MD [address] [place] [address] Phone: tel: fax: Referral ID Status Reason Start Date Expiration Date Visits Re quested Visits Authorized [id number] Closed 05/02/2025 11/01/2026 1 1 Encounter Details Date Type Department Care Team (Latest Contact Info) Description 05/02/2025 3:25 PM EDT Ancillary Procedure Obstetrics & Gynecology [address] [place] [address] Unsure of LMP (last menstrual period) as reason for ultrasound scan Social History Tobacco Use Types Packs/Day Years Used Date Smoking Tobacco: Former Cigarettes Smokeless Tobacco: Never Estimated Date of Delivery Comme nts Yes 11/23/2025 Based on Ultraso und Sex and Gender Information Value Date Recorded Sex Assigned at Not on file Legal Sex Female 6:31 PM EDT Gender Identity Not on file Sexual Orientation Not on file documented as of this encounter Plan of Treatment Upcoming Encounters Date Type Department Care Team (Late st Contact Info) Description 05/17/2025 1:45 PM EDT Routine Obstetrics & Gynecology [address] [place] [address] Aren Song MD [address] [place] [address] 05/17/2025 1:50 PM EDT Appointment [facility] [address] [place] [address] documented as of this encounter Procedures Procedure Name Priority Date/Time Associated Diagnosis Comments OB US TRANSVAGINAL Routine 05/02/2025 3: 22 PM EDT Unsure of LMP (last menstrual period) as reason for ultrasound scan documented in this encounter Results * OB US Transvaginal (05/02/2025 3:22 PM EDT) Anatomical Region Laterality Modality Pelvis Ultrasound 05/02/2025 4:05 PM EDT Impressions 05/02/2025 4:15 PM EDT The OB Ultrasound you requested has been resulted. Please navigate to the Imaging tab in [employer] for review. This message has been generated by the interface. Narrative Procedure Note Aren Song MD - 05/02/2025 IMPRESSION: The OB Ultrasound you requested has been resulted. Please navigate to theImaging tab in [employer] for review. This message has been generated by theinterface. us Aren Song MD IMG OB US [...] documented as of this encounter Care Teams Wheel Mill Operator Relationship Specialty Start Date End Date Pcp, No [address] [place] [address] PCP - General Family Medicine 05/02/25 documented as of this encounter
--- OUTSIDE RECORDS SUMMARY | 2025-05-15 22:13 | XMS_ITS | Encounter Summary ---
Author Organization Healthcare Address [address] [id number] Care Team Providers Care Dividend Deposit Voucher Clerk Name Role Phone Pcp, No Primary Care Provider Unavailabl e Encounter Details Date Type Department Care Team (Latest Contact Info) Description 05/02/2025 Travel Social History Tobacco Use Types Packs/Day Years [...] PM EDT Routine Obstetrics & Gynecology [address] [place] [address] Aren Song MD [address] [place] [address] 05/17/2025 1:50 PM EDT Appointment [facility] [address] [place] [address] documented as of this encounter Visit Diagnoses Not on filedocumented in this encounter Additional Health Concerns Assessment Noted Time A Body Mass Index follow-up plan has been documented for the patient 05/02/2025 4:23 PM EDT documented as of this encounter Care Teams Dividend Deposit Voucher Clerk Relationship Specialty Start Date End Date Pcp, No [address] [place] [address] PCP - General Family Medicine 05/02/25 documented as of this encounter
--- OUTSIDE RECORDS SUMMARY | 2025-05-15 22:13 | XMS_ITS | Encounter Summary ---
Author Organization Healthcare Address [address] [place] [address] Care Team Providers Care Ceramic Design Engineer Name Role Phone Pcp, No Primary Care Provider Unavailabl e Encounter Details Date Type Department Care Team (Late st Contact Info) Description 04/29/2025 Telephone Obstetrics & Gynecology [address] [place] [address] Aren Song MD [address] [place] [address] Social History Tobacco Use Types Packs/Day Years Used Date Smoking Tobacco: Former Comments Unknown Sex and Gender Information Value Date Recorded Sex Assigned at Not on file Legal Sex Female 6:31 PM EDT Gender Identity Not on file Sexual Orientation Not on file documented as of this encounter Miscellaneous Notes * Telephone Encounter - Brooklynn Osorio - 04/29/2025 10:02 AM EDT Clinical Concern/Question Reason for Call: Pt is calling to RS her IPV Best contact number: [phone] (home) Optimal time of day to reach caller: ANYTIME Additional comments/information from caller: None Note: Please do not reply to this message. Follow-up communication and further actions as a result of this message need to be communicated with the patient directly, if the patient is not active onMyChart. If the patient is active on MyChart, they will receive notification of the communication/outcome via MyChart. documented in this encounter Plan of Treatment Upcoming Encounters Date Type Department Care Team (Late st Contact Info) Description 05/17/2025 1:45 PM EDT Routine Obstetrics & Gynecology [address] [place] [address] Aren Song MD [address] [place] [address] 05/17/2025 1:50 PM EDT Appointment [facility] [address] [place] [address] documented as of this encounter Visit Diagnoses Not on filedocumented in this encounter Care Teams Ceramic Design Engineer Relationship Specialty Start Date End Date Pcp, No [address] [place] [address] PCP - General Family Medicine 05/02/25 documented as of this encounter
--- OUTSIDE RECORDS SUMMARY | 2025-05-15 22:13 | XMS_ITS | Clinical Summary ---
Author Organization Healthcare Address [address] [place] [address] Care Team Providers Care Outside Plant Supervisor Name Role Phone Pcp, No Primary Care Provider Unavailabl e Medications hydrOXYzine HCl (Atarax) 25 MG tablet TAKE ONE TABLET BY MOUTH THREE TIMES DAILY NEEDED FOR ANXIETY MAY CAUSE DROWSINESS 5 Active Vit-Fe Fumarate-FA (GNP ) 28-0.8 MG tablet Take 1 tablet by mouth daily. Active propranolol LA (Inderal LA) 80 MG 24 hr capsule Take 1 capsule by mouth daily. Active Encounters Date Type Department Care Team Description 05/02/2025 3:25 PM EDT Ancillary Procedure Obstetrics & Gynecology [address] [place] [address] Unsure of LMP (last menstrual period) as reason for ultrasound scan 05/02/2025 3:15 PM EDT Initial Obstetrics & Gynecology [address] [place] [address] Aren Song MD GA: 10w5d 05/02/2025 Travel 04/29/2025 Telephone Obstetrics & Gynecology [address] [place] [address] Aren Song MD from Last 3 Months Family History 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 Relation Name Comments Hypertension Mother Tachycardia Mother Heart attack Other Relation Name Status Comments Mother Other Social History Tobacco Use Types Packs/Day [...] Mass Index 52.83 05/02/2025 3:44 PM EDT Plan of Treatment Upcoming Encounters Date Type Department Care Team (Late st Contact Info) Description 05/17/2025 1:45 PM EDT Routine Obstetrics & Gynecology [address] [place] [address] Aren Song MD [address] [place] [address] 05/17/2025 1:50 PM EDT Appointment [facility] [address] [place] [address] Health Maintenance Due Date Last Done Comments [facility]-Depression Screening 2001 [facility]-HIV Screening 2001 [facility]-Hepatitis C Screening 2001 [facility]-Infant/Child/Adol SDOH Screenings 2001 [facility]- SDOH Screenings 2019 [facility]-Adult SDOH Screenings 2019 [facility]-Pap Smear 2022 [id number] Vaccine ( season) 2024 [facility]-Influenza Vaccine (#1) 2025 08/21/2015, [facility]-RSV Vaccine: 60+ Years or (1 - Risk 1-dose series) 09/28/2025 [facility]-DTaP,Tdap,and Td Vaccines (8 - Td or Tdap) 10/03/2032 10/03/2022, 08/09/2012, 06/05/2008, Additional history exists [facility]-Zoster Vaccines (1 of 2) 2051 08/10/2012, 05/14/2002 [facility]-Hepatitis B Vaccines Completed 002, 2001, 2001 [facility]-Pneumococcal Vaccine: Pediatrics (0 to 5 Years) and At-Risk Patients (6 to 49 Years) Completed 10/03/2002, 2001, 2001, Additional history exists [facility]-HIB Vaccines Completed 04/28/2003, , 2001, Additional history exists [facility]-IPV Vaccines Completed 06/05/2005, , 2001, Additional history exists [facility]-Varicella Vaccines Completed 08/10/2012, 2001 HPV Vaccines Completed 10/23/2017, 08/10/2012 [facility]-Hepatitis A Vaccines Completed 05/26/2018, 10/10 [facility]-Obesity Intervention Completed 05/02/2025 [facility]-Rotavirus Vaccines Aged Out No lo nger eligible based on patient's age to complete this topic Goals Goal Patient Goal Type Associated Problems Recent Progress Patient-Stated? Author Delayed Care Plan CPM S24 PP LABOR (OBSTETRICS) No Open Scheduling, Background Procedures Procedure Name Priority Date/Time Associated Diagnosis Comments OB US TRANSVAGINAL Routine 05/02/2025 3: 22 PM EDT Unsure of LMP (last menstrual period) as reason for ultrasound scan from Last 3 Months Results * OB US Transvaginal (05/02/2025 3:22 PM EDT) Anatomical Region Laterality Modality Pelvis Ultrasound 05/02/2025 4:05 PM EDT Impressions 05/02/2025 4:15 PM EDT The OB Ultrasound you requested has been resulted. Please navigate to the Imaging tab in [email or web address] for review. This message has been generated by the interface. Narrative Procedure Note Aren Song MD - 05/02/2025 IMPRESSION: The OB Ultrasound you requested has been resulted. Please navigate to theImaging tab in [email or web address] for review. This message has been generated by [employer]. us Aren Song MD IMG OB US PROCEDURES Final Resu lt from Last 3 Months Additional Health Concerns Active Problems Noted Date Diagnosed Date CPM S24 PP LABOR (OBSTETRICS) 05/03/2025 Insurance [facility] [employer] [facility] [place] [address] Care Teams Outside Plant Supervisor Relationship Specialty Start Date [place] [address] PCP - General Family Medicine 05/02/25
--- OUTSIDE RECORDS SUMMARY | 2025-05-15 22:13 | XMS_ITS | Patient Health Record ---
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 Plan Of Treatment No Information Insurance Providers Payer Name Payer Address Payer Phone Subscriber Number Group Number Insured Name Patient Relationship to Insured Coverage Start Date Coverage End Date [place] [facility] [address] [address] [place], [place] [phone] [id number] Kahlil danielaAnaya Self - patient is the insured 2 Medical (General) History 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 History ICD Code Atrial fibrillation Iron deficiency anemia Surgical History Surgery Date(Month/Year)
--- OUTSIDE RECORDS SUMMARY | 2025-05-15 22:14 | XMS_ITS | Patient Health Record ---
Author Organization [facility] Address [address] [place] [address] Care Team Providers Care Flight Operations Engineer Name Role Phone LOWELL MCNAMARA Primary Care Provider Allergies Allergen (clinical drug ingredient) Drug/Non Drug Allergy documented on EMR Reaction Allergy Type Onset Date Status penicillin anaphylaxis Drug Allergy Acti ve Reason For Referral No Information Medications Medication SIG (Take, Route, Frequency, Duration) Notes Start Date End Date Status Zoloft 50 MG 1 tablet Orally Once a day 12/09/2017 Active Adderall 5 MG 1 tablet in the morning Orally Once a day 01/06/2018 Active Mononessa 0.25-0.035 1 tablet Once a day Orally 28 day(s) Active hydrOXYzine HCl 50 MG 1 tablet Orally hs; Duration: 4 days 03/19/2018 Active Bactrim DS 800-160 MG 1 tablet Orally Twice a day; Duration: 10 days disregard previous order for Cephalexin Active Sudafed 30 MG 1 tablet as needed Orally every 8 hrs Active Pyridium 200 MG 1 tablet after meals Orally Three times a day; Duration: 3 days Active Immunizations Vaccine Route Administration Date Status Comme nts TDAP (VFC Adacel) Unknown 08/10/2012 Administered DTaP Unknown 06/06/2008 Administered DTaP Unknown 05/13/2003 Administered DTaP Unknown 2001 Administered DTaP Unknown 2001 Administered DTaP Unknown 2001 Administered IPV (Poliovirus) Unknown 06/06/2005 Administered IPV (Poliovirus) Unknown 05/24/2002 Administered IPV (Poliovirus) Unknown 2001 Administered IPV (Poliovirus) Unknown 2001 Administered MMR Unknown 06/06/2005 Administered MMR Unknown 10/04/2002 Administered HIB Unknown 04/29/2003 Administered HIB Unknown 2001 Administered HIB Unknown 2001 Administered HIB Unknown 2001 Administered Hep B Pediatric Unknown 2001 Administered Hep B Pediatric Unknown 2001 Administered Hep B Pediatric Unknown 2001 Administered Varicella Unknown 08/10/2012 Administered Varicella Unknown 05/14/2002 Administered Prevnar Unknown 10/04/2002 Administered Prevnar Unknown 2001 Administered Prevnar Unknown 2001 Administered Prevnar Unknown 2001 Administered HPV Gardasil Unknown 08/10/2012 Administered Meningococcal Unknown 08/10/2012 Administered HPV Gardasil IM Intramuscular 10/23/2017 Administered Hep A Pediatric IM Intramuscular 10/23/2017 Administered Meningococcal B(Trumenba) IM Intramuscular 02/23/2018 Admi nistered Meningococcal IM Intramuscular 02/23/2018 Administered Social History Tobacco Use: Social History Observation Description Date Details (start date - stop date) Former Smoker NA - NA Tobacco Use/Smoking Question Answer Notes Are you a former smoker Problems Problem Type SNOMED Code ICD Code Onset Dates Problem Status W/U Status Risk Notes Problem Major depression, single episode (93061733) Major depressive disorder, single episode, unspecified (F32.9) Active confirmed Problem Anxiety disorder (506064369) Anxiety disorder, unspecified (F41.9) Active confirmed Problem Hesitancy of micturition (8985578) Hesitancy of micturition (R39.11) Active confirmed Problem Obesity (823006258) Obesity, unspecified (E66.9) Active confirmed Problem Attention deficit hyperactivity disorder (897093202) Attention-deficit hyperactivity disorder, predominantly hyperactive type (F90.1) Active confirmed Problem Tension-type headache (292992572) Tension-type headache, unspecified, not intractable (G44.209) Active confirmed Problem Constipation (26760968) Constipation, unspecified (K59.00) Active confirmed Problem Scoliosis (645075130) Scoliosis, unspecified (M41.9) Active confirmed Problem Urinary incontinence (181266572) Unspecified urinary incontinence (R32) Active confirmed Plan Of Treatment Pending Test Test Name Order Date Flu Test 11/25/2017 Strep Test 11/25/2017 Insurance Providers Payer Name Payer Address Payer Phone Subscriber Number Group Number Insured Name Patient Relationship to Insured Coverage Start Date Coverage End Date [employer] [address] [place] [address] [id number] Anaya Nguyễn Self - patient is the insured [employer] MEDICA[employer] [address] [place] [id number] Anaya Nguyễn Self - patient is the insured Medical (General) History 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 History ICD Code Constipation, unspecified K59.00 Scoliosis, unspecified M41.9 Surgical History Surgery Date(Month/Year) oral surgery episitomy Hospitalization History Reason Date(Month/Year) vaginal x 1
[2025-05-15 22:27] VITALS: BP 103/70; PULSE 93; RESP 18; TEMP 37.4; O2SAT 99; BMI 52.7
[2025-05-15] MEDS: ACETAMINOPHEN 500MG TAB 1000 MG PO (22:59)
[2025-05-15 23:15] LABS: Coronavirus 19, PCR Not Detected (NotDetected); Influenza A, PCR Not Detected (NotDetected); Influenza B, PCR Not Detected (NotDetected)
--- NOTE | 2025-05-15 23:15 | HMH.EDGENADL ---
Discharge Plan Disposition Patient Disposition: Home, Self-Care Prescriptions Prescriptions: New cefadroxil 500 mg capsule 500 mg PO BID 5 Days Qty: 10 0RF No Action PNV no.95-ferrous fumarate-FA [] 28 mg iron- 800 mcg tablet PO Patient Comments: TAKE ONE TABLET BY MOUTH EVERY DAY hydroxyzine HCl 25 mg tablet PO Patient Comments: TAKE ONE TABLET BY MOUTH THREE TIMES DAILY NEEDED FOR ANXIETY MAY CAUSE DROWSINESS terconazole 0.4 % cream 1 appful vaginal HS 7 Days Qty: 45 0RF propranolol 80 mg tablet 80 mg PO DAILY Patient Comments: TAKE ONE TABLET BY MOUTH EVERY DAY Referrals Follow up/Referrals: Provider,Referral, MD [Primary Care Provider, Medical] - See instructions Activity Restrictions/Add. Instructions Additional Instructions/Restrictions: Take the antibiotics as prescribed. Follow-up with your OB physician as scheduled. If you develop any new or worsening symptoms, or if you become concerned for your health for any reason, return to the emergency department for evaluation Clinical Impressions Clinical Impression: Urinary tract infection Instructions Patient Instructions: DI for Acute Abdominal Pain Print Language Print Language: Italian Discharge ED Provider: Mejia Landeros Adult HPI General Chief complaint: Abdominal Pain Stated complaint: 12 weeks ,cold chills,CAO Time Seen by Provider: 05/15/25 22:45 Mode of Arrival: Ambulatory Description of Symptoms (Recalled from ER Triage Doc. by RN): Patient reports she has abdominal pain and pelvic pain and had fever, patient is also concerned about a bee sting History of Present Illness HPI narrative: Anaya Nguyễn is a 25-year-old female who is currently 12 weeks and states that she has had 5 miscarriages and 2 living children who presents to the emergency department for complaints of chills, headache. Patient states that yesterday, she stepped on a bee on her right foot and had pain to that area. She reports intermittent episodes of sharp abdominal pain since then, however this was mostly yesterday. She has that today, she has had a headache as well as full body chills. She states that she had an ultrasound performed at 9 weeks that that was otherwise normal. She denies any vaginal bleeding but does report some dysuria and believes she may have a urinary tract infection. Related Data Home Medications ?Medication ?Instructions ?Recorded ?Confirmed propranolol 80 mg tablet 80 mg PO DAILY 06/28/24 04/14/25 hydroxyzine HCl 25 mg tablet mg PO 03/22/25 04/14/25 vit no.95-ferrous tab PO 03/22/25 04/14/25 fumarate 28 mg-folic acid 800 mcg tablet () Previous Rx's ?Medication ?Instructions ?Recorded terconazole 0.4 % vaginal cream 1 appful vaginal HS 7 days #45 03/30/25 grams cefadroxil 500 mg capsule 500 mg PO BID 5 days #10 caps 05/16/25 Allergies Allergy/AdvReac Type Severity Reaction Status Date / Time Penicillins Allergy Severe Anaphylaxis Verified 04/14/25 13:50 [facility] Disclaimer: The information contained in this section may have been updated after the patient was seen, as this information can be updated by other users. 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 RSV bronchitis Viral URI with cough Candidal vaginitis UTI (urinary tract infection) Urinary tract infection Skin yeast infection Vaginal yeast infection Depression Anxiety Urinary tract infection Migraine Hypertension Surgical History No significant past surgical history Social History Smoking Status: Current every day smoker alcohol intake: never current occupational status: employed Travel in the last 8 weeks?: None Have you lived/traveled outside US in past 30 days?: No Contact w/someone who lives/traveled outside US past 30 days?: No Exposure to someone with infectious disease in past 14 days?: No Do you have a fever (greater than 100.4 F or 38 C)?: Yes Have you tested positive for COVID-19?: No Exposed to someone with COVID-19 in past 14 days?: No Do you have a sore throat?: No Do you have a cough?: No Do you have any weakness?: No Do you have any diarrhea?: No Are you experiencing any unusual bleeding?: No Do you have any muscle aches/pain?: No Do you have any abdominal pain?: No Are you experiencing loss of taste or smell?: No ROS Obtained: Yes Systems reviewed as appropriate & no additional complaints except as documented Physical Exam General General appearance: alert, in no apparent distress and obese Head Head exam: atraumatic Eye Eye exam: Present normal appearance ENT ENT exam: Present normal external ear exam Neck Neck exam: Present full ROM Chest Chest inspection: Present symmetric chest wall rise Respiratory Respiratory exam: Present normal lung sounds bilaterally; Absent respiratory distress Cardiovascular Cardiovascular exam: Present regular rate and normal rhythm Abdominal Exam Abdominal exam: Present soft and tenderness (mild suprapubic); Absent guarding Extremities Exam Extremities exam: Present normal inspection Back Exam Back exam: Present normal inspection Neurological Exam Neurological exam: Present alert and oriented X3 Psychiatric Psychiatric exam: Present normal affect Skin Skin exam: Present warm, dry and other (mild erythema and swelling to the dorsal right foot) Medical Decision Making Medical Records Screening: Per USPSTF and CDC recommendations, given the prevalence of disease in our region, it is our hospital?s policy to screen for HIV and viral Hepatitis for all patients aged 18 and over and those with ongoing risk factors. Best Inquiry Pt receiving controlled substance: No Vital Signs: 05/15/25 22:27 05/16/25 00:34 Temperature 99.4 F 0 F L Temperature Source Oral Pulse Rate 0 L Pulse Rate [Right Radial] 93 H Respiratory Rate 18 16 Blood Pressure 00/00 L Blood Pressure [Left Arm] 103/70 L Blood Pressure Mean [Left Arm] 81 Blood Pressure Source [Left Arm] Automatic Cuff Blood Pressure Position [Left Arm] Sitting 02 Sat by Pulse Oximetry 99 Oxygen Delivery Method Room Air Lab Data Lab Results 05/15/25 22:45: Urine Color Yellow, Urine Appearance Clear, Urine pH 6.0, Ur Specific [place] 1.010, Urine Protein Negative, Urine Glucose (UA) Negative, Urine Ketones Negative, Urine Blood Negative, Urine Nitrate Negative, Urine Bilirubin Negative, Urine Urobilinogen 0.2, Ur Leukocyte Esterase 1+ A, Urine WBC 20-50, Ur Squamous Epith Cells 5-10, Urine Bacteria Trace 05/15/25 23:00: SARS-CoV-2 (PCR) Not detected, Influenza A Untype (PCR) Not detected, Influenza Type B (PCR) Not detected 05/15/25 23:09: WBC 8.7, RBC 4.62, Hgb 13.9, Hct 39.8, MCV 86.1, MCH 30.1, MCHC 34.9, RDW 12.5, Plt Count 228, MPV 11.2 H, Neut % (Auto) 69.6, Lymph % (Auto) 21.9, Gates % (Auto) 7.1, Eos % (Auto) 0.6, Baso % (Auto) 0.5, Neut # (Auto) 6.1, Lymph # (Auto) 1.9, Gates # (Auto) 0.6, Eos # (Auto) 0.1, Baso # (Auto) 0.0, Sodium 136, Potassium 3.6, Chloride 99, Carbon Dioxide 27, Anion Gap 13.6, BUN 8, Creatinine 0.70, Estimated Creat Clear 112, Estimated GFR 103, Est GFR ( Amer) 124, Glucose 88, Calcium 9.5, Total Bilirubin 0.4, AST 25, ALT 23, Alkaline Phosphatase 50, Total Protein 7.2, Albumin 4.2, Globulin 3.0, Albumin/Globulin Ratio 1.4, Lipase 67, HCG, Quant 80187 H, Blood Type O Positive 05/15/25 23:09 05/15/25 23:09 Orders (Tests/Meds): ED MEDICATIONS Discontinued Medications Generic Name Dose Route Start Last Admin Trade Name Freq PRN Reason Stop Dose Admin Acetaminophen 1,000 mg 05/15/25 22:56 05/15/25 22:59 Acetaminophen 500mg Tab PO 05/15/25 22:57 1,000 mg ONCE ONE Administration ORDERS Category Date Time Status ABO/RH Type Stat BBK 05/15/25 23:09 Completed POCUS Point of Care (ER Only) Stat Exams 05/15/25 22:57 Completed CBC w/Auto Diff [Complete Blood Count Auto Diff] Stat Lab 05/15/25 23:09 Completed CMP [Comprehensive Metabolic Panel] Stat Lab 05/15/25 23:09 Completed HCG,Quantitative Stat Lab 05/15/25 23:09 Completed Lipase Stat Lab 05/15/25 23:09 Completed Rapid PCR Covid and Flu A/B Stat Lab 05/15/25 23:00 Completed UA [Urinalysis and Microscopic] Stat Lab 05/15/25 22:45 Completed Urine Culture Stat Micro 05/15/25 22:45 Received Medical Decision Narrative: Anaya Nguyễn is a 25-year-old female who is currently 12 weeks and states that she has had 5 miscarriages and 2 living children who presents to the emergency department for complaints of chills, headache. Patient states that yesterday, she stepped on a bee on her right foot and had pain to that area. She reports intermittent episodes of sharp abdominal pain since then, however this was mostly yesterday. She has that today, she has had a headache as well as full body chills. She states that she had an ultrasound performed at 9 weeks that that was otherwise normal. She denies any vaginal bleeding but does report some dysuria and believes she may have a urinary tract infection. On arrival, patient is normotensive, heart rate within normal limits, afebrile, breathing comfortably room air with appropriate oxygen saturation. Physical exam, stated above, reveals an overall well-appearing female in no distress. She has some mild erythema and swelling to the dorsum of her right foot consistent with her recent bee sting. She has some mild suprapubic abdominal tenderness but no guarding or rebound and nonperitoneal take abdomen. The remainder of her physical exam is grossly unremarkable. Differential diagnosis includes, but is not limited to: Urinary tract infection, demise, viral illness, among others. The most morbid conditions were considered and workup was based on these. Workup in the emergency department included: Urinalysis, COVID/flu swab, quantitative beta-hCG, CMP, CBC, [id number] OB ultrasound Laboratory workup was grossly unremarkable with unremarkable CBC, CMP. Appropriately uptrending quantitative beta-hCG. Urinalysis with 20-50 white blood cells, trace bacteria consistent with urinary tract infection [id number] ultrasound showed heart rate of 170s. Viable intrauterine . Patient's workup consistent with urinary tract infection in the setting of . Will treat with cefadroxil. Instructed to follow-up with her OB physician and to take the antibiotics as prescribed. Return precautions were given. All questions were answered. She demonstrated understanding and was in agreement this plan. She was then discharged from the emergency department in stable condition. Critical Care Critical Care Time Critical Care Time: No
[2025-05-15 23:29] LABS: Hematocrit 39.8 % (37.0-47.0); Hemoglobin 13.9 g/dL (12.2-16.2); Immature Granulocytes % 0.3 %; Mean Corpuscular HGB Conc 34.9 g/dL (31.8-35.4); Mean Corpuscular Hemoglobin 30.1 pg (27.0-31.2); Mean Corpuscular Volume 86.1 fl (81-99); Nucleated Red Blood Cells % 0 %; Platelet Count 228 K/mm3 (142-424); Red Blood Count 4.62 M/mm3 (4.20-5.40); Red Cell Distribution Width-SD 38.7 fL; White Blood Count 8.7 K/mm3 (4.8-10.8)
[2025-05-15 23:31] LABS: Microscopic, Urine URINE MICROSCOPIC (MICROSCOPIC)
[2025-05-15 23:34] LABS: Bilirubin,Urine Negative (Negative); Color,Urine YELLOW (Yellow); Glucose,Urine (UA) Negative (Negative); Ketones,Urine Negative (Negative); Leukocyte Esterase,Urine 1+ (Negative); PH,Urine 6.0 (5.0-8.5); Protein,Urine Negative (Negative); Specific Gravity, Urine 1.010 (1.005-1.030); Urobilinogen,Urine 0.2 EU/dl (0.2)
[2025-05-15 23:36] LABS: Alanine Aminotransferase 23 U/L (12-78); Albumin Level 4.2 g/dl (3.5-5.0); Albumin/Globulin Ratio 1.4 (1.1-1.8); Alkaline Phosphatase 50 U/L (38-126); Anion Gap 13.6 mEq/L (5-15); Aspartate Amino Transferase 25 U/L (14-36); Bilirubin,Total 0.4 mg/dl (0.2-1.3); Blood Urea Nitrogen 8 mg/dl (7-17); Calcium 9.5 mg/dl (8.4-10.2); Carbon Dioxide 27 mmol/L (22.0-30.0); Chloride 99 mmol/L (98-107); Creatinine Clearance Estimated 112 mL/min (50-200); Creatinine,Serum 0.70 mg/dl (0.52-1.04); Estimated Glomerular Filt Rate 103 ml/min (>60); GFR (African American) 124 ML/MIN (>60); Globulin 3.0 g/dL (1.3-3.2); Glucose 88 mg/dl (74-100); Lipase 67 U/L (23-300); Potassium 3.6 mmoL/L (3.5-5.1); Sodium 136 mmol/L (136-145); Total Protein,Serum 7.2 g/dl (6.3-8.2)
[2025-05-15 23:47] LABS: Bacteria,Urine Trace /lpf; WBC,Urine 20-50 #/hpf (0-3)
[2025-05-16 00:34] VITALS: BP 00/00; PULSE 0; RESP 16; TEMP -17.7; TEMP 0; O2SAT 0
--- NOTE | 2025-05-16 00:35 | PC.NURSE ---
pt refused to have vs taken at discharge.
--- NOTE | 2025-05-18 09:42 | PC.NURSE ---
Urine culture results reviewed by Dr. Calvo. No new orders received.
== END 2025-05-16 00:35 | disposition home or self-care (01) ==
PROVIDERS: Emergency Provider Student in an Organized Health Care Education/Training Program
DX: O23.41 Unspecified infection of urinary tract in pregnancy, first trimester (principal); R30.0 Dysuria; Z3A.12 12 weeks gestation of pregnancy
CPT/HCPCS: 80053; 81001; 83690; 84702; 85025; 86900; 86901; 87086; 87636; 99284

== ENCOUNTER 2025-08-20 00:23 | Outpatient (CLI) | payer MEDICAID, SELFPAY ==
--- OUTSIDE RECORDS SUMMARY | 2025-06-24 13:00 | XMS_ITS | Encounter Summary ---
Author Organization Healthcare Address [address] [place] [address] Care Team Providers Care Superintendent Plant Protection Name Role Phone Pcp, No Primary Care Provider Unavailabl e Reason for Referral * Imaging (Routine) - Closed Specialty Diagnoses / Procedures Referred By Migue devlin Referred To Contact Diagnoses 18 weeks gestation of Procedures OB US Follow Up Transabdominal Approach OB US 14+ Weeks Anatomy Scan Aren Song MD [address] [place] [address] Phone: tel: fax: Referral ID Status Reason Start Date Expiration Date Visits Re quested Visits Authorized [id number] Closed 06/24/2025 12/24/2026 1 1 Reason for Visit * Reason Comments Routine Visit Patient states sh jennifer hasn't felt her baby move x 3 days, she doesn't know if something is wrong or baby is upset cause she hasn't ate Ekaterina cheese steak Encounter Details Date Type Department Care Team (Late st Contact Info) Description 06/24/2025 1:00 PM EDT Routine Obstetrics & Gynecology [address] [place] [address] Aren Song MD [address] [place] [address] 18 weeks gestation of (Primary Dx); Velamentous insertion of umbilical cord in second trimester Social History Tobacco Use Types Packs/Day Years Used Date Smoking Tobacco: Former Cigarettes Smokeless Tobacco: Never PHQ-2 Answer Date Recorded Patient Health Questionnaire-2 Score 0 06/13/2025 PHQ-9 Answer Date Recorded Patient Health Questionnaire-9 Score 0 05/17/2025 Estimated Date of Delivery Comme nts Yes 11/23/2025 Based on Ultraso und Sex and Gender Information Value Date Recorded Sex Assigned at Female 05/16/2025 10:17 AM EDT Legal Sex Female 6:31 PM EDT Gender Identity Female 05/16/2025 10:17 AM EDT Sexual Orientation Straight 05/16/2025 10 :17 AM EDT documented as of this encounter Last Filed Vital Signs Vital Sign Reading Time Taken Comments Blood Pressure 119/77 06/24/2025 1:13 PM EDT Pulse 86 06/24/2025 1:13 PM EDT Temperature 36.9 C (98.4 F) 06/24/2025 1:13 PM EDT Respiratory Rate - - Oxygen Saturation 98% 06/24/2025 1:13 PM EDT Inhaled Oxygen Concentration - - Weight 145 kg (319 lb 10.7 oz) 06/24/2025 1:13 P M EDT Height - - Body Mass Index 53.2 06/13/2025 4:40 PM EDT documented in this encounter Miscellaneous Notes * Progress Notes - Aren Song MD - 06/24/2025 1:00 PM EDT Subjective Chief Complaint Patient presents with Routine Visit Patient states she hasn't felt her baby move x 3 days, she doesn't know if something is wrong or baby is upset cause she hasn't ate Ekaterina cheese steak Bre Nguyễn is a 25 y.o. at 18w2d with a working estimated date of delivery of 11/23/2025, by Ultrasound who presents for a routine visit. She denies vaginal bleeding, leakage of fluid - she does report some decreased movements. NIPT x 2 - Insufficient Cells Her is complicated by: VCI The following portions of the chart were reviewed this encounter and updated as appropriate: Meds Objective Physical Exam Weight: 145 kg (319 lb 10.7 oz) Expected Total Weight Gain: Could not be calculated Pregravid BMI: Could not be calculated BP: 119/77 Heart Rate: +us Labs Urine dip: NA HGB (g/dL) Date/Time Value 09/27/2020 1527 15.2 HCT (%) Date/Time Value 09/27/2020 1527 44.4 No results found for: PAPPA , AFP , HCG , ESTRIOL , INHBA No results found for: GLUF , GLUT1 , HRGDQVP5GG , KVHHGPW5CI Imaging Early Anatomy US OK - VCI noted Assessment/Plan Assessment & Plan 18 weeks gestation of Orders: OB US 14+ Weeks Anatomy Scan; Future Velamentous insertion of umbilical cord in second trimester Continue vitamin. Labs reviewed. Rhogam ??? Re-Anatomy US 4 weeks Needs NOB labs Follow up in 2 weeks for a routine visit. documented in this encounter Plan of Treatment Upcoming Encounters Date Type Department Care Team (Late st Contact Info) Description 09/05/2025 11:00 AM EDT Routine Obstetrics & Gynecology [address] [place] [phone] Aren Song MD [address] [place] [phone] 09/19/2025 9:30 AM EST Routine Obstetrics & Gynecology [address] [place] [phone] Aren Song MD [address] [place] [address] 10/03/2025 10:30 AM EST Routine Obstetrics & Gynecology [address] [place] [phone] Aren Song MD [address] [place] [address] 10/03/2025 10:40 AM EST Appointment [facility] Ash[facility] Ultrasound [address] [place] [address] documented as of this encounter Goals Goal Patient Goal Type Associated Problems Recent Progress Patient-Stated? Author Delayed Care Plan CPM S24 PP LABOR (OBSTETRICS) No Open Scheduling, Background documented as of this encounter Procedures Procedure Name Priority Date/Time Associated Diagnosis Comments PLATELET COUNT, BLOOD Routine 2025 11:09 PM EDT HEMOGLOBIN Routine 2025 11:09 PM EDT HEMATOCRIT, BLOOD Routine 2025 11: 09 PM EDT HEPATITIS C ANTIBODY W/REFLEX TO HCV QUANT PCR Routine 11/10/2024 10:00 AM EST HIV 1/2 ANTIBODY/ANTIGEN SCREEN WITH REFLEX TO HIV I/II DIFFERENTIATION Routine 07/29/2024 CHLAMYDIA TRACHOMATIS DNA BY PCR Routine 07/06/2023 NEISSERIA GONORRHEA DNA BY PCR Routine 07/06/2023 documented in this encounter Results * OB US Follow Up Transabdominal Approach (07/25/2025 2:24 PM EDT) Anatomical Region Laterality Modality Body Ultrasound 07/25/2025 2:01 PM EDT Impressions 07/25/2025 3:15 PM EDT The OB Ultrasound you requested has been resulted. Please navigate to the Imaging tab in [employer] for review. This message has been generated by the interface. Narrative Procedure Note Della Ochoa MD - 07/25/2025 IMPRESSION: The OB Ultrasound you requested has been resulted. Please navigate to theImaging tab in [employer] for review. This message has been generated by theinterface. us Aren Song MD IMG OB US PROCEDURES Final Resu lt * Platelet Count, Blood (2025 11:09 PM EDT) External Platelet Count (Plt) 228 Blood Venous blood specimen / Unknown Result [facility] Provider LAB BLOOD ORDERABLES Final R esult * Hemoglobin, Blood (2025 11:09 PM EDT) External Hemoglobin (Hgb) 13.90 Blood Venous blood specimen / Unknown Result [facility] Provider LAB BLOOD ORDERABLES Final R esult * Hematocrit, Blood (2025 11:09 PM EDT) External Hematocrit (Hct) 39.8 Blood Venous blood specimen / Unknown Result [facility] Provider LAB BLOOD ORDERABLES Final R esult * Hepatitis C Antibody w/Reflex to HCV Quant PCR (11/10/2024 10:00 AM EST) Hepatitis C Antibody Negative Negative Blood Venous blood specimen / Unknown Result [facility] Provider LAB BLOOD ORDERABLES Final R esult * HIV 1 & 2 Antibody/Antigen Screen (07/29/2024) External HIV 1/2 Ab/Ag Negative Blood Venous blood specimen / Unknown Result [facility] Provider LAB BLOOD ORDERABLES Final R esult * Neisseria gonorrhea DNA by PCR (07/06/2023) External Neisseria Gonorrhoeae Negative Urine Result [facility] Provider LAB MICROBIOLOGY - GENERAL O RDERABLES Final Result * Chlamydia trachomatis DNA by PCR (07/06/2023) External Chlamydia Trachomatis Negative Urine Result [facility] Provider LAB MICROBIOLOGY - GENERAL O RDERABLES Final Result documented in this encounter Visit Diagnoses Diagnosis 18 weeks gestation of - Primary Velamentous insertion of umbilical cord in second trimester 18 weeks gestation of documented in this encounter Additional Health Concerns Active Problems Noted Date Diagnosed Date CPM S24 PP LABOR (OBSTETRICS) 05/03/2025 Assessment Noted Time PHQ-9 Depression Total Score: 0 05/17/20 25 1:39 PM EDT A fall risk assessment has been complete d for the patient 06/13/2025 4:41 PM EDT A Body Mass Index follow-up plan has been documented for the patient 06/24/2025 3:04 PM EDT documented as of this encounter Care Teams Superintendent Plant Protection Relationship Specialty Start Date End Date Pcp, [place] [address] PCP - General Family Medicine 05/02/25 documented as of this encounter
--- OUTSIDE RECORDS SUMMARY | 2025-06-24 13:17 | XMS_ITS | Encounter Summary ---
Author Organization [facility] Address [address] [place] [address] Care Team Providers Care Gear Setter Name Role Phone Pcp, No Primary Care Provider Unavailabl e Reason for Referral * Imaging (Routine) - Closed Specialty Diagnoses / Procedures Referred By Migue devlin Referred To Contact Diagnoses 12 weeks gestation of Procedures OB US 14+ Weeks Anatomy Scan Aren Song MD [address] [place] [phone] Phone: tel: fax: Referral ID Status Reason Start Date Expiration Date Visits Re quested Visits Authorized [id number] Closed 05/17/2025 11/16/2026 1 1 Reason for Visit * Imaging (Routine) - Closed Specialty Diagnoses / Procedures Referred By Migue devlin Referred To Contact Diagnoses 12 weeks gestation of Procedures OB US 14+ Weeks Anatomy Scan Aren Song MD [address] [place] [phone] Phone: tel: fax: Referral ID Status Reason Start Date Expiration Date Visits Re quested Visits Authorized [id number] Closed 05/17/2025 11/16/2026 1 1 Encounter Details Date Type Department Care Team (Latest Contact Info) Description 06/24/2025 1:17 PM EDT - 06/24/2025 11:59 PM EDT Hospital Encounter [facility] [address] [place] [address] 12 weeks gestation of Discharge Disposition: Home or Self Care Social History Tobacco Use Types Packs/Day Years [...] AM EDT documented as of this encounter Medications at Time of Discharge nystatin (Mycostatin) 807160 UNIT/GM powder AAA BID prn 60 g 11 06/13/2025 Vit-Fe Fumarate-FA (GNP ) 28-0.8 MG tablet Take 1 tablet by mouth daily. 03/22/2025 propranolol LA (Inderal LA) 80 MG 24 hr capsule Take 1 capsule by mouth daily. hydrOXYzine HCl (Atarax) 25 MG tablet TAKE ONE TABLET BY MOUTH THREE TIMES DAILY NEEDED FOR ANXIETY MAY CAUSE DROWSINESS 03/22/2025 documented as of this encounter Plan of Treatment Upcoming Encounters Date Type Department Care Team (Late Contact Info) Description 09/05/2025 11:00 AM EDT Routine Obstetrics & Gynecology [address] [place] [address] Aren Song MD [address] [place] [address] 09/19/2025 9:30 AM EST Routine Obstetrics & Gynecology [address] [place] [address] Aren Song MD [address] [place] [address] 10/03/2025 10:30 AM EST Routine Obstetrics & Gynecology [address] [place] [address] Aren Song MD [address] [place] [address] 10/03/2025 10:40 AM EST Appointment [facility] Ultrasound [address] [place] [address] documented as of this encounter Goals Goal Patient Goal Type Associated Problems Recent Progress Patient-Stated? Author Delayed Care Plan CPM S24 PP LABOR (OBSTETRICS) No Open Scheduling, Background documented as of this encounter Procedures Procedure Name Priority Date/Time Associated Diagnosis Comments OB US 14+ WEEKS ANATOMY SCAN Routine 06/24/2025 1:49 PM EDT 12 weeks gestation of documented in this encounter Results * OB US 14+ Weeks Anatomy Scan (06/24/2025 1:49 PM EDT) Anatomical Region Laterality Modality Body Ultrasound 06/24/2025 1:15 PM EDT Impressions 06/26/2025 6:45 PM EDT The OB Ultrasound you requested has been resulted. Please navigate to the Imaging tab in [employer] for review. This message has been generated by the interface. Narrative Procedure Note Don Anderson MD - 06/26/2025 IMPRESSION: The OB Ultrasound you requested has been resulted. Please navigate to theImaging tab in [employer] for review. This message has been generated by theinterface. us Aren Song MD IMG OB US PROCEDURES Final Resu lt documented in this encounter Visit Diagnoses Diagnosis 12 weeks gestation of documented in this encounter [...] documented as of this encounter Care Teams Gear Setter Relationship Specialty Start Date End Date Pcp, [place] [address] PCP - General Family Medicine 05/02/25 documented as of this encounter
--- OUTSIDE RECORDS SUMMARY | 2025-06-27 13:15 | XMS_ITS | Encounter Summary ---
Author Organization Healthcare Address [address] [place] [address] Care Team Providers Care Embryology Teacher Name Role Phone Pcp, No Primary Care Provider Unavailabl e Reason for Visit * Reason Comments Labs Here for labs. Encounter Details Date Type Department Care Team (Latest Contact Info) Description 06/27/2025 1:15 PM EDT Clinical Support Obstetrics & Gynecology [address] [place] [address] Date of last menstrual period (LMP) unknown (Primary Dx) Social History Tobacco Use Types Packs/Day Years [...] AM EDT documented as of this encounter Plan of Treatment Upcoming Encounters Date Type Department Care Team (Late st Contact Info) Description 09/05/2025 11:00 AM EDT Routine Obstetrics & Gynecology [address] [place] [address] Aren Song MD [address] [place] [address] 09/19/2025 9:30 AM EST Routine Obstetrics & Gynecology [address] [place] [address] Aren Song MD [address] [place] [address] 10/03/2025 10:30 AM EST Routine Obstetrics & Gynecology [address] [place] [address] Aren Song MD [address] [place] [address] 10/03/2025 10:40 AM EST Appointment [facility] Ashleigh JON Ultrasound [address] [place] [address] documented as of this encounter Goals Goal Patient Goal Type Associated Problems Recent Progress Patient-Stated? Author Delayed Care Plan CPM S24 PP LABOR (OBSTETRICS) No Open Scheduling, Background documented as of this encounter Procedures Procedure Name Priority Date/Time Associated Diagnosis Comments HIV 1/2 ANTIBODY/ANTIGEN SCREEN W/REFLEX TO HIV 1/2 ANTIBODY DIFFERENTIATION Routine 06/27/2025 1:18 PM EDT Date of last menstrual period (LMP) unknown TREPONEMA PALLIDUM (SYPHILIS) ANTIBODIES WITH REFLEX TO RPR AND RPR TITER (THOSE WITH NO KNOWN SYPHILIS) Routine 06/27/2025 1:18 PM EDT Date of last menstrual period (LMP) unknown CHLAMYDIA TRACHOMATIS DNA BY PCR Routine 06/27/2025 1:18 PM EDT Date of last menstrual period (LMP) unknown HIV 1/2 ANTIBODY/ANTIGEN SCREEN WITH REFLEX TO HIV I/II DIFFERENTIATION Routine 06/27/2025 1:18 PM EDT Date of last menstrual period (LMP) unknown HEPATITIS C ANTIBODY W/REFLEX TO HCV QUANT PCR Routine 06/27/2025 1:18 PM EDT Date of last menstrual period (LMP) unknown DRUG ABUSE SCREEN, URINE Routine 06/27/2025 1:18 PM EDT Date of last menstrual period (LMP) unknown NEISSERIA GONORRHEA DNA BY PCR Routine 06/27/2025 1:18 PM EDT Date of last menstrual period (LMP) unknown RUBELLA ANTIBODY IGG Routine 06/27/2025 1:18 PM EDT Date of last menstrual period (LMP) unknown HEPATITIS B SURFACE ANTIGEN Routine 06/27/2025 1:18 PM EDT Date of last menstrual period (LMP) unknown CBC W/O DIFFERENTIAL Routine 06/27/2025 1:18 PM EDT Date of last menstrual period (LMP) unknown TYPE AND SCREEN Routine 06/27/2025 1:18 PM EDT Date of last menstrual period (LMP) unknown URINE CULTURE Routine 06/27/2025 1:18 PM EDT Date of last menstrual period (LMP) unknown documented in this encounter Results * HIV 1 & 2 Antibody/Antigen Screen (06/27/2025 1:18 PM EDT) Pathologist [facility] HIV 1 & 2 Antibody/Antigen Screen Non Reactive Non Reactive 06/27/2025 7:24 PM EDT [facility] Comment:Screening for HIV 1 & 2 antibodies, and P24 antigen is NONREACTIVE. No confirmatory testing is required. Blood Venous blood specimen / Unknown Venipuncture / Unknown 06/27/2025 1:18 PM EDT 06/27/2025 6:41 PM EDT us Aren Song MD LAB BLOOD ORDERABLES Final Resu lt [facility] [address] [place] [address] * Urine Culture (06/27/2025 1:18 PM EDT) Pathologist [facility] Culture <10,000 CFU/mL Mixed urogenital, fecal, or skin alesia present. 06/28/2025 4:51 PM EDT [facility] Urine Urine specimen obtained by clean catch procedure / Unknown Non-blood Collection / Unknown 06/27/2025 1:18 PM EDT 06/27/2025 6:49 PM EDT us Aren Song MD LAB MICROBIOLOGY - [facility] Final Result Performing Organization Address [facility] Co de Phone Number [facility] [address] [place] [address] * Type and Screen (06/27/2025 1:18 PM EDT) ABO/Rh O Positive 06/27/2025 1:18 PM EDT BLOOD BANK Antibody Screen Negative 06/27/2025 1:18 PM EDT BLOOD BANK Specimen Expiration 06/30/2025 23:59 06/27/2025 1:18 PM EDT BLOOD BANK Blood Venous blood specimen / Unknown Venipuncture / Unknown 06/27/2025 1:18 PM EDT 06/27/2025 6:42 PM EDT Result Elsi Song MD LAB BLOOD BANK TEST ORDERABLES Final Result Performing Organization Address [facility] Number BLOOD BANK [address] [place] [address] * Treponema Pallidum (Syphilis) Antibodies with Reflex to RPR and RPR Titer (Those with NO known Syphilis) (06/27/2025 1:18 PM EDT) Syphilis Antibody (IgG+IgM) Nonreactive Nonreactive 06/27/2025 9:06 PM EDT [facility] Comment:Nonreactive. No sero logic evidence of syphilis. No follow-up necessary unless clinically indicated (e.g., early syphilis). Blood Venous blood specimen / Unknown Venipuncture / Unknown 06/27/2025 1:18 PM EDT 06/27/2025 6:41 PM EDT us Aren Song MD LAB BLOOD ORDERABLES Final Resu lt [facility] [address] [place] [address] * (ABNORMAL) Rubella Antibody IgG (06/27/2025 1:18 PM EDT) Rubella Antibody IgG Positive(A ) Negative 06/27/2025 10:36 PM EDT [facility] Comment: Rubella IgG Result Interpretation: Negative: No IgG antibody specific to the rubella virus detected. Patient is presumed not to have had a previous exposure to rubella through infection or vaccination. Equivocal: Serologic status cannot be determined. Repeat testing in 10-14 days may be helpful. Positive: IgG antibody specific to rubella detected. IgG antibody levels are at a level considered to indicate positive immunity through infection or vaccination. Blood Venous blood specimen / Unknown Venipuncture / Unknown 06/27/2025 1:18 PM EDT 06/27/2025 6:41 PM EDT us Aren Song MD LAB BLOOD ORDERABLES Final Resu lt [facility] [address] [place] [address] * Neisseria gonorrhea DNA by PCR (06/27/2025 1:18 PM EDT) Neisseria gonorrhea DNA PCR Result Not Detected Not Detected. 06/28/2025 2:36 PM EDT [facility] Urine Urine specimen obtained by clean catch procedure / Unknown Non-blood Collection / Unknown 06/27/2025 1:18 PM EDT 06/27/2025 6:49 PM EDT Narrative [facility] - 06/28/2025 2:36 PM EDT This test is performed by the [employer] instrument for Real Time PCR C. trachomatis and N. gonorrhea. This test is FDA approved for use with endocervical, vaginal, and urine specimens. This test is used for clinical purposes. It should not be regarded as invesigational or for research. The [facility] is certified under the Clinical Laboratory Improvement Amendments of 1988 (CLIA-88) as qualified to perform high complexity clinical laboratory testing. Result Elsi Song MD LAB MICROBIOLOGY - [facility] Final Result Performing Organization Address [facility]/ZIP Co de Phone Number [facility] [address] [place] [address] * Hepatitis C Antibody w/Reflex to HCV Quant PCR (06/27/2025 1:18 PM EDT) Hepatitis C Antibody Negative Negative 06/27/2025 7:29 PM EDT [facility] Blood Venous blood specimen / Unknown Venipuncture / Unknown 06/27/2025 1:18 PM EDT 06/27/2025 6:40 PM EDT Result Elsi Song MD LAB BLOOD ORDERABLES Final Resu lt Performing Organization Address [facility] Co de Phone Number [facility] [address] [place] [address] * Hepatitis B Surface Antigen (06/27/2025 1:18 PM EDT) Hepatitis B Surf Antigen Negative Negative 06/27/2025 9:06 PM EDT [facility] Blood Venous blood specimen / Unknown Venipuncture / Unknown 06/27/2025 1:18 PM EDT 06/27/2025 6:41 PM EDT Result Elsi Song MD LAB BLOOD ORDERABLES Final Resu lt Performing Organization Address [facility] Co de Phone Number [facility] [address] [place] [address] * Drug Abuse Screen, Urine (06/27/2025 1:18 PM EDT) Amphetamine Screen Urine Negative Cutoff: 500 ng/mL 06/27/2025 7:30 PM EDT [facility] Benzodiazepines Screen Urine Negative Cutoff: 200 ng/mL 06/27/2025 7:30 PM EDT [facility] Cannabinoid Screen Urine Negative Cutoff: 50 ng/mL 06/27/2025 7:30 PM EDT [facility] Cocaine Screen Urine Negative Cutoff: 300 ng/mL 06/27/2025 7:30 PM EDT [facility] Barbiturate Screen Urine Negative Cutoff: 200 ng/mL 06/27/2025 7:30 PM EDT [facility] Opiate Screen Urine Negative Cutoff: 300 ng/mL 06/27/2025 7:30 PM EDT [facility] Methadone Screen Urine Negative Cutoff: 300 ng/mL 06/27/2025 7:30 PM EDT [facility] Buprenorphine Screen Urine Negative Cutoff: 10 ng/mL 06/27/2025 7:30 PM EDT [facility] Fentanyl Screen Urine Negative Cutoff: 1 ng/mL 06/27/2025 7:30 PM EDT [facility] Oxycodone Screen Urine Negative Cutoff: 100 ng/mL 06/27/2025 7:30 PM EDT [facility] Urine Urine specimen obtained by clean catch procedure / Unknown Non-blood Collection / Unknown 06/27/2025 1:18 PM EDT 06/27/2025 6:40 PM EDT Aren Song MD LAB URINE ORDERABLES Final Resu lt [facility] [address] [place] [address] * Chlamydia trachomatis DNA by PCR (06/27/2025 1:18 PM EDT) Chlamydia trachomatis DNA PCR Result Not Detected Not Detected 06/28/2025 2:36 PM EDT [facility] Urine Urine specimen obtained by clean catch procedure / Unknown Non-blood Collection / Unknown 06/27/2025 1:18 PM EDT 06/27/2025 6:49 PM EDT Narrative [facility] - 06/28/2025 2:36 PM EDT This test is performed by the [employer] instrument for Real Time PCR C. trachomatis and N. gonorrhea. This test is FDA approved for use with endocervical, vaginal, and urine specimens. This test is used for clinical purposes. It should not be regarded as invesigational or for research. The [facility] is certified under the Clinical Laboratory Improvement Amendments of 1988 (CLIA-88) as qualified to perform high complexity clinical laboratory testing. Aren Song MD LAB MICROBIOLOGY - GENERAL DC AROR[place] Final Result [facility] [address] [place] [address] * CBC W/O Differential (06/27/2025 1:18 PM EDT) WBC Count 10.18 3.70 - 10.30 10*3/uL LAB HEMATOLOGY METHOD 06/27/2025 7:14 PM EDT [facility] RBC Count 4.77 3.90 - 5.20 10*6/uL LAB HEMATOLOGY METHOD 06/27/2025 7:14 PM EDT [facility] HGB 14.6 11.2 - 15.7 g/dL LAB HEMATOLOGY METHOD 06/27/2025 7:14 PM EDT [facility] HCT 42.5 34.0 - 45.0 % LAB HEMATOLOGY METHOD 06/27/2025 7:14 PM EDT [facility] Platelet Count 268 155 - 369 10*3/uL LAB HEMATOLOGY METHOD 06/27/2025 7:14 PM EDT [facility] MCV 89 79 - 98 fL LAB HEMATOLOGY METHOD 06/27/2025 7:14 PM EDT [facility] MCH 30.6 26.0 - 32.0 pg LAB HEMATOLOGY METHOD 06/27/2025 7:14 PM EDT [facility] MCHC 34.4 30.7 - 35.5 g/dL LAB HEMATOLOGY METHOD 06/27/2025 7:14 PM EDT [facility] RDW 13.3 11.5 - 14.5 % LAB HEMATOLOGY METHOD 06/27/2025 7:14 PM EDT [facility] MPV 11.8 8.8 - 12.5 fL LAB HEMATOLOGY METHOD 06/27/2025 7:14 PM EDT [facility] nRBC 0.0 <=0.0 per 100 WBCs LAB HEMATOLOGY METHOD 06/27/2025 7:14 PM EDT [facility] Blood Venous blood specimen / Unknown Venipuncture / Unknown 06/27/2025 1:18 PM EDT 06/27/2025 6:41 PM EDT us Aren Song MD LAB BLOOD ORDERABLES Final Resu lt [facility] [address] [place] [address] documented in this encounter Visit Diagnoses Diagnosis Date of last menstrual period (LMP) unknown- Primary documented in this encounter Additional Health Concerns Active Problems Noted Date Diagnosed Date CPM S24 PP LABOR (OBSTETRICS) 05/03/2025 Assessment Noted Time PHQ-9 Depression Total Score: 0 05/17/20 1:39 PM EDT A fall risk assessment has been complete d for the patient 06/13/2025 4:41 PM EDT A Body Mass Index follow-up plan has been documented for the patient 06/27/2025 1:34 PM EDT documented as of this encounter Care Teams Embryology Teacher Relationship Specialty Start Date End Date Pcp, No [address] [place] [address] PCP - General Family Medicine 05/02/25 documented as of this encounter
--- OUTSIDE RECORDS SUMMARY | 2025-07-25 13:45 | XMS_ITS | Encounter Summary ---
Author Organization [facility] Address [address] [place] [address] Care Team Providers Care Machine Technician Name Role Phone Pcp, No Primary Care Provider Unavailabl e Reason for Referral * Imaging (Routine) - Authorized Specialty Diagnoses / Procedures Referred By Migue devlin Referred To Contact Diagnoses Velamentous insertion of umbilical cord in second trimester Procedures OB US Follow Up Transabdominal Approach Aren Song MD [address] [place] [address] Phone: tel: fax: Referral ID Status Reason Start Date Expiration Date V isits Requested Visits Authorized [id number] Authorized 07/25/2025 01/24/2027 1 1 Reason for Visit * Reason Comments Routine Visit Passing out frequ ently Encounter Details Date Type Department Care Team (Late Contact Info) Description 07/25/2025 1:45 PM EDT Routine Obstetrics & Gynecology [address] [place] [address] Aren Song MD [address] [place] [address] 22 weeks gestation of (Primary Dx); Velamentous insertion of umbilical cord in second trimester Social History Tobacco Use Types Packs/Day Years Used Date Smoking Tobacco: Former Cigarettes Smokeless Tobacco: Never Tobacco Cessation:Counseling Given: Yes PHQ-2 Answer Date Recorded Patient Health Questionnaire-2 Score 0 07/25/2025 PHQ-9 Answer Date Recorded Patient Health Questionnaire-9 Score 0 07/25/2025 Estimated Date of Delivery Comme nts Yes [...] Sign Reading Time Taken Comments Blood Pressure 113/77 07/25/2025 2:26 PM EDT Pulse 91 07/25/2025 2:26 PM EDT Temperature 36.8 C (98.3 F) 07/25/2025 2:26 PM EDT Respiratory Rate - - Oxygen Saturation 94% 07/25/2025 2:26 PM EDT Inhaled Oxygen Concentration - - Weight 146 kg (320 lb 15.8 oz) 07/25/2025 2:26 P M EDT Height 165.1 cm (5' 5 ) 07/25/2025 2:26 PM EDT Body Mass Index 53.42 07/25/2025 2:26 PM EDT documented in this encounter Functional Status * Over the past 2 weeks, how often have you been bothered by any of the following problems? Question Answer Date of Assessment Author Little interest or pleasure in doing things Not at all 07/25/2025 2:30 PM EDT Christi Daily Feeling down, depressed, or hopeless Not at all 07/11 2:30 PM EDT Christi Daily Patient Health Questionnaire-2 Score 0 07/11 2:30 PM EDT Christi Daily * Question Answer Date of Assessment Author Trouble falling or staying a sleep, or sleeping too much Not at all 07/25/2025 2:30 PM EDT Christi Daily Feeling tired or having little energy Not at all 2:30 PM EDT Christi Daily Poor appetite or overeating Not at all 07/25/2025 2: 30 PM EDT Christi Daily Feeling bad about yourself - or that you are a failure or have let yourself or your family down Not at all 07/25/2025 2:30 PM EDT Cyndi Daily Trouble concentrating on thi ngs, such as reading the newspaper or watching television Not at all 07/25/2025 2:30 PM EDT Christi Daily Moving or speaking so slowly that other people could have noticed? Or the opposite - being so fidgety or restless that you have been moving around a lot more than usual. Not at all 07/25/2025 2:30 PM EDT Sherrie Daily Thoughts that you would be b erin off or hurting yourself in some way Not at all 07/25/2025 2:30 PM EDT Christi Daily Patient Health Questionnaire-9 Score 0 07/11 2:30 PM EDT Christi Daily * Calculated C-SSRS Risk Score (Lifetime/Recent) Answer Date of Assessment Author No Risk Indicated 07/25/2025 2:30 PM EDT Sherrie Daily * How difficult have these problems made it for you to do your work, take care of things at home, or get along with other people? Answer Date of Assessment Author Not difficult at all 07/25/2025 2:30 PM EDT Christi Daily * Question Answer Date of Assessment Author 1. Wish to be (Past 1 Month) No 025 2:30 PM EDT Christi Daily 2. Non-Specific Active Suici buzz Thoughts (Past 1 Month) No 07/25/2025 2:30 PM EDT Christi Daily 6. Suicidal Behavior (Lifetime) No 2:30 PM EDT Christi Daily documented as of this encounter Miscellaneous Notes * Progress Notes - Aren Song MD - 07/25/2025 1:45 PM EDT Subjective Chief Complaint Patient presents with Routine Visit Passing out frequently Bre Nguyễn is a 25 y.o. at 22w5d with a working estimated date of delivery of 11/23/2025, by Ultrasound who presents for a routine visit. She denies vaginal bleeding, leakage of fluid. +FM NIPT x 2 - Insufficient Cells Her is complicated by: VCI The following portions of the chart were reviewed this encounter and updated as appropriate: Meds Objective Physical Exam Weight: 146 kg (320 lb 15.8 oz) Expected Total Weight Gain: Could not be calculated Pregravid BMI: Could not be calculated BP: 113/77 Heart Rate: +us Labs Urine dip: NA HGB (g/dL) Date/Time Value 06/27/2025 1318 14.6 HCT (%) Date/Time Value 06/27/2025 1318 42.5 ABO/Rh (no units) Date/Time Value 06/27/2025 1318 O Positive Hepatitis B Surf Antigen (no units) Date/Time Value 06/27/2025 1318 Negative No results found for: PAPPA , AFP , HCG , ESTRIOL , INHBA No results found for: GLUF , GLUT1 , [id number] , [id number] Imaging Anatomy US OK - VCI noted Assessment/Plan Assessment & Plan 22 weeks gestation of Velamentous insertion of umbilical cord in second trimester Orders: OB US Follow Up Transabdominal Approach; Future Continue vitamin. Labs reviewed. Follow up in 3 weeks for a routine visit. documented in this encounter Plan of Treatment Upcoming Encounters Date Type Department Care Team (Late st Contact Info) Description 09/05/2025 11:00 AM EDT Routine Obstetrics & Gynecology [address] [place] [address] Aren Song MD [address] [place] [address] 09/19/2025 9:30 AM EST Routine Obstetrics & Gynecology [address] [place] [address] Aren Song MD [address] [place] [address] 10/03/2025 10:30 AM EST Routine Obstetrics & Gynecology [address] [place] [address] Aren Song MD [address] [place] [address] 10/03/2025 10:40 AM EST Appointment [facility] Ashleigh WEBB Ultrasound [address] [place] [address] Scheduled Orders Name Type Priority Associated Diagnoses Orde r Schedule OB US Follow Up Transabdominal Approach Imaging Routine Velamentous insertion of umbilical cord in second trimester Expected: 10/03/2025, Expires: 01/26/2027 documented as of this encounter Goals Goal Patient Goal Type Associated Problems Recent Progress Patient-Stated? Author Delayed Care Plan CPM S24 PP LABOR (OBSTETRICS) No Open Scheduling, Background documented as of this encounter Visit Diagnoses Diagnosis 22 weeks gestation of - Primary Velamentous insertion of umbilical cord in second trimester documented in this encounter Additional Health Concerns Active Problems Noted Date Diagnosed Date CPM S24 PP LABOR (OBSTETRICS) 05/03/2025 Assessment Noted Time PHQ-9 Depression Total Score: 0 07/25/20 2:30 PM EDT A fall risk assessment has been complete d for the patient 06/13/2025 4:41 PM EDT A Body Mass Index follow-up plan has been documented for the patient 07/25/2025 2:47 PM EDT documented as of this encounter Care Teams Machine Technician Relationship Specialty Start Date End Date Pcp, No [address] [place] [address] PCP - General Family Medicine 05/02/25 documented as of this encounter
--- OUTSIDE RECORDS SUMMARY | 2025-07-25 13:50 | XMS_ITS | Encounter Summary ---
Author Organization [facility] Address [address] [place] [address] Care Team Providers Care Bull Bucker Name Role Phone Pcp, No Primary Care Provider Unavailabl e Reason for Referral * Imaging (Routine) - Closed Specialty Diagnoses / Procedures Referred By Migue devlin Referred To Contact Diagnoses 18 weeks gestation of Procedures OB US Follow Up Transabdominal Approach OB US 14+ [place] [address] [place] [phone] Phone: tel: fax: Referral ID Status Reason Start Date Expiration Date Visits Re quested Visits Authorized [id number] Closed 06/24/2025 12/24/2026 1 1 Reason for Visit * Imaging (Routine) - Closed Specialty Diagnoses / Procedures Referred By Migue devlin Referred To Contact Diagnoses 18 weeks gestation of Procedures OB US Follow Up Transabdominal Approach OB US 14+ Weeks Anatomy Scan Aren Song MD [address] [place] [address] Phone: tel: fax: Referral ID Status Reason Start Date Expiration Date Visits Re quested Visits Authorized [id number] Closed 06/24/2025 12/24/2026 1 1 Encounter Details Date Type Department Care Team (Latest Contact Info) Description 07/25/2025 1:50 PM EDT - 07/25/2025 11:59 PM EDT Hospital Encounter [facility] Ashleigh WEBB Ultrasound [address] [place] [address] 18 weeks gestation of Discharge Disposition: Home [...] Medications at Time of Discharge nystatin (Mycostatin) 675891 UNIT/GM powder AAA BID prn 60 g [...] Routine Obstetrics & Gynecology [address] [place] [address] Aren Song MD [address] [place] [address] 09/19/2025 9:30 AM EST Routine Obstetrics & Gynecology [address] [place] [address] Aren Song MD [address] [place] [address] 10/03/2025 10:30 AM EST Routine Obstetrics & Gynecology [address] [address] Aren Song MD [address] [place] [address] 10/03/2025 10:40 AM EST Appointment [facility] [address] [place] [address] documented as of this encounter Goals Goal [...] Please navigate to the Imaging tab in [employer] for review. This message has been generated by the interface. Narrative Procedure Note Della Ochoa MD - 07/25/2025 IMPRESSION: The OB Ultrasound you requested has been resulted. Please navigate to theImaging tab in [employer] for review. This message has been generated by [employer]. us Aren Song MD IMG OB US [...] documented as of this encounter Care Teams Bull Bucker Relationship Specialty Start Date End Date Pcp, Brittany [address] [place] [address] PCP - General Family Medicine 05/02/25 documented as of this encounter
--- OUTSIDE RECORDS SUMMARY | 2025-08-15 09:00 | XMS_ITS | Encounter Summary ---
Author Organization Healthcare Address [address] [id number] Care Team Providers Care Wiring Technician Name Role Phone Pcp, No Primary Care Provider Unavailabl e Reason for Visit * Reason Comments Routine Visit Patient doing wel l, no issues declines flu vaccine Encounter Details Date Type Department Care Team (Late st Contact Info) Description 08/15/2025 9:00 AM EDT Routine Obstetrics & Gynecology [address] [place] [address] Aren Song MD [address] [place] [address] 25 weeks gestation of (Primary [...] results found for: GLUF , GLUT1 , [id number] , [id number] Assessment/Plan Assessment & Plan 25 weeks gestation of Velamentous insertion of umbilical cord in second trimester Continue vitamin. Labs reviewed. Labs next visit. Follow up in 3 weeks for a routine visit. documented in this encounter Plan of Treatment Upcoming Encounters Date Type Department Care Team (Late st Contact Info) Description 09/05/2025 11:00 AM EDT Routine Obstetrics & Gynecology [address] [place] [address] Aren Song MD [address] [place] [address] 09/19/2025 9:30 AM EST Routine Obstetrics & Gynecology [address] [place] [address] Aren Song MD [address] [place] [address] 10/03/2025 10:30 AM EST Routine Obstetrics & Gynecology [address] [place] [address] Aren Song MD [address] [place] [address] 10/03/2025 10:40 AM EST Appointment [facility] Ashleigh WEBB Ultrasound [address] [place] [address] documented as of this encounter Goals Goal [...] documented as of this encounter Care Teams Wiring Technician Relationship Specialty Start Date End Date Pcp, No [address] [place] [address] PCP - General Family Medicine 05/02/25 documented as of this encounter
--- OUTSIDE RECORDS SUMMARY | 2025-08-20 00:24 | XMS_ITS | Continuity of Care Document ---
Author Organization [facility]. If a dditional information is needed, contact Health Information Management at [phone] Address [address] [place] [address] Phone Care Team Providers Care Pearl Fisherman Name Role Phone Unavailable Unavailable Unavailable Unavailable Unavailable Unavailable Unavailable Unavailable Unavailable Unavailable Unavailable Unavailable Unavailable Unavailable Unavailable Unavailable Unavailable Unavailable Unavailable Unavailable Unavailable Problems Dog bite of hand Onset:04-Oct-2022 Yesi Mercado PA-C Status:Acute Sprain of knee Onset:01-Jul-2022 Antonella CARRANZA Status:Acute Abdominal pain Onset:15-Sep-2020 Juancarlos Burns MD Status:Acute Chest pain Onset:15-Sep-2020 Juancarlos Burns MD Status:Acute care status Onset:15-Jan-2020 Finesse Larose Status:Acute Gestation period, 23 weeks Onset:17-Sep-2019 Steffen Cortes Status:Acute Nausea, vomiting and diarrhea Onset:17-Sep-2019 Steffen Cortes Status:Acute Spotting per vagina in Onset:09-Jan-2017 Steffen Cortes Status:Acute Comments:Onset Date: Spotting per vagina in Onset:09-Jan-2017 Brigitte Dumont Status:Acute Comments:Onset Date: Functional Status Functional finding 03-Oct-2022 Functional finding 03-Oct-2022 Functional finding 03-Oct-2022 Functional finding 17-Sep-2019 Functional finding 17-Sep-2019 Functional finding 17-Sep-2019 Allergies and Adverse Reactions hydromorphone HCl From Dilau did(Allergy) Onset: 14-Jan-2020 Reaction:Hives hydromorphone HCl From Dilau did(Allergy) Onset: 26-Jan-2017 Reaction:Hives Penicillins(Allergy) Onset: 26-Jan-2017 Reaction:Swelling Medications amoxicillin 875 MG / clavula messi 125 MG Oral Tablet;875 MG ORAL Every 12 Hours Start:03-Oct-2022 Comments:875 mg PO Q12 Voltaren_VOLT75TA19-AOM;75 M G ORAL Two Times a Day Start:01-Jul-2022 Comments:75 mg PO BID Robaxin-750;0 .ROUTE .COMPLE X Start:01-Jul-2022 Comments:0 .ROUTE .COMPLEX Stool Softener_STOO100C-AOM; 100 MG ORAL Two Times a Day Start:16-Jan-2020 Comments:100 mg PO BID Ukkaszc_URBR-5-RNU; 1 TAB ORAL Daily Start:16-Jan-2020 Comments:1 tab PO DAILY Motrin;800 MG ORAL Every 8 H ours Start:16-Jan-2020 Comments:800 mg PO Q8 Wgxexoj_ATQI-6-ZUV; 1 TAB ORAL Daily Start:14-Jan-2020 Comments:1 tab PO DAILY vitamin D3;1000 UNITS ORAL D aily Start:22-Dec-2016 Status:Aborted Comments:1000 units PO DAILY ;1 TAB ORAL Daily Start:22-Dec-2016 Status:Aborted Comments:1 tab PO DAILY Methocarbamol;, EDGAR PURCELL Comments:, Diclofenac;, EDGAR PURCELL Comments:, Social History Smoking Status Smokes tobacco daily Recorded: 14-Jan-2020 Never smoked tobacco Recorded: 17-Sep-2019 Ex-smoker Chews tobacco Encounters pre-admission 10-Jul-2022 16:00 Laura
--- OUTSIDE RECORDS SUMMARY | 2025-08-20 00:25 | XMS_ITS | Clinical Summary ---
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 03/22/20 25 Active propranolol LA (Inderal LA) 80 MG 24 hr capsule Take 1 capsule by mouth daily. Active nystatin (Mycostatin) 312126 UNIT/GM powder AAA BID prn 60 g 11 06/13/20 25 Active hydrOXYzine HCl (Atarax) 25 MG tabletIndicatio ns:Palpitations ,Anxiety disorder, unspecified TAKE ONE TABLET BY MOUTH THREE TIMES DAILY NEEDED FOR ANXIETY MAY CAUSE DROWSINESS 90 tablet 1 08/08/20 25 Active hydrOXYzine HCl (Atarax) 25 MG tablet TAKE ONE TABLET BY MOUTH THREE TIMES DAILY NEEDED FOR ANXIETY MAY CAUSE DROWSINESS 03/22/20 25 025 Discontinued Encounters Date Type Department Care Team Description 08/15/2025 9:00 AM EDT Routine Obstetrics & Gynecology [address] [place] [address] Aren Song MD 25 weeks gestation of (Primary Dx); Velamentous insertion of umbilical cord in second trimester 08/15/2025 Travel 08/05/2025 Refill Obstetrics & Gynecology [address] [place] [address] Aren Song MD Palpitations; Anxiety disorder, unspecified 07/25/2025 1:50 PM EDT - 07/25/2025 11:59 PM EDT Hospital Encounter [facility] Ultrasound [address] [place] [address] 18 weeks gestation of Discharge Disposition: Home or Self Care 07/25/2025 1:45 PM EDT Routine Obstetrics & Gynecology [address] [place] [address] Aren Song MD 22 weeks gestation of (Primary Dx); Velamentous insertion of umbilical cord in second trimester 07/25/2025 Travel 07/22/2025 Telephone Obstetrics & Gynecology [address] [place] [address] [place] [address] Aren Song MD 06/27/2025 1:15 PM EDT Clinical Support Obstetrics & Gynecology [address] [place] [address] Date of last menstrual period (LMP) unknown (Primary Dx) 06/27/2025 Travel 06/24/2025 1:17 PM EDT - 06/24/2025 11:59 PM EDT Hospital Encounter [facility] Ultrasound [address] [place] [address] 12 weeks gestation of Discharge Disposition: Home or Self Care 06/24/2025 1:00 PM EDT Routine Obstetrics & Gynecology [address] [facility] [place] [address] Aren Song MD 18 weeks gestation of (Primary Dx); Velamentous insertion of umbilical cord in second trimester 06/24/2025 Travel 06/20/2025 Telephone Obstetrics & Gynecology [address] [place] [address] [place] [address] Aren Song MD 06/20/2025 Results Follow-Up Obstetrics & Gynecology [facility] [address] Aren Song MD 06/17/2025 Telephone Obstetrics & Gynecology [address] [place] [address] Aren Song MD 06/14/2025 Telephone Obstetrics & Gynecology [address] [place] [address] Aren Song MD 06/13/2025 3:45 PM EDT Routine Obstetrics & Gynecology [address] [place] [address] Aren Song MD 16 weeks gestation of (Primary Dx); Encounter of female for testing for genetic disease carrier status for procreative management; Yeast vaginitis 06/13/2025 Travel 06/13/2025 Telephone Obstetrics & Gynecology [address] [place] [address] Aren Song MD 05/23/2025 Results Follow-Up Obstetrics & Gynecology [address] [place] [address] Aren Song MD from Last 3 Months [...] Orientation Straight 05/16/2025 10 :17 AM EDT Last Filed Vital Signs Vital Sign Reading Time Taken Comments Blood Pressure 100/67 08/15/2025 8:59 AM EDT Pulse 88 08/15/2025 8:59 AM EDT Temperature 36.6 C (97.9 F) 08/15/2025 8:59 AM EDT Respiratory Rate 20 05/02/2025 3:44 PM EDT Oxygen Saturation 97% 08/15/2025 8:59 AM EDT Inhaled Oxygen Concentration - - Weight 148 kg (326 lb) 08/15/2025 8:59 AM EDT Height 165.1 cm (5' 5 ) 07/25/2025 2:26 PM EDT Body Mass Index 54.25 07/25/2025 2:26 PM EDT Plan of Treatment Upcoming Encounters Date Type Department Care Team (Late st Contact Info) Description 09/05/2025 11:00 AM EDT Routine Obstetrics & Gynecology [address] [place] [address] Aren Song MD [address] [place] [address] 09/19/2025 9:30 AM EST Routine Obstetrics & Gynecology [address] [place] [address] Aren Song MD [address] [place] [address] 10/03/2025 10:30 AM EST Routine Obstetrics & Gynecology [address] [place] [address] Aren Song MD [address] [place] [address] 10/03/2025 10:40 AM EST Appointment [facility] [address] [place] [address] Health Maintenance Due Date Last Done Comments [facility]-/Child/Adol SDOH Screenings 2001 [facility]- SDOH Screenings 2019 [facility]-Adult SDOH Screenings 2019 [facility]-Pap Smear 2022 [id number] Vaccine ( season) 2025 [facility]-Influenza Vaccine (#1) 2025 08/21/2015, [facility]-RSV Vaccine: 60+ Years or (1 - Risk 1-dose series) 09/28/2025 [facility]-Depression Screening 08/15/2026 08/15/2025, 04/2025 [facility]-DTaP,Tdap,and Td Vaccines (8 - Td or [...] 08/10/2012 [facility]-Hepatitis A Vaccines Completed 05/26/2018, 10/10 [facility]-HIV Screening Completed 06/27/2025, 07/29/2024 [facility]-Hepatitis C Screening Completed 06/27/2025, 11/2024 [facility]-Obesity Intervention Completed 025, 07/25/2025, 06/27/2025, Additional history exists [facility]-Rotavirus Vaccines Aged Out No lo nger eligible based on patient's age to complete this topic Goals Goal Patient Goal Type Associated Problems Recent Progress Patient-Stated? Author Delayed Care Plan CPM S24 PP LABOR (OBSTETRICS) No Open Scheduling, Background Procedures Procedure Name Priority Date/Time Associated Diagnosis Comments OB US FOLLOW UP TRANSABDOMINAL APPROACH Routine 07/25/2025 2:24 PM EDT 18 weeks gestation of HIV 1/2 ANTIBODY/ANTIGEN SCREEN WITH REFLEX TO [...] period (LMP) unknown HIV 1/2 ANTIBODY/ANTIGEN SCREEN W/REFLEX TO HIV [...] Date of last menstrual period (LMP) unknown OB US 14+ WEEKS ANATOMY SCAN Routine 06/24/2025 1:49 PM EDT 12 weeks gestation of HORIZON CUSTOM Routine 06/13/2025 4:49 PM EDT Encounter of female for testing for genetic disease carrier status for procreative management PANORAMA TEST Routine 4:49 PM EDT 16 weeks gestation of from Last 3 Months Results * OB US Follow Up Transabdominal Approach (07/25/2025 2:24 PM EDT) Anatomical Region Laterality Modality Body Ultrasound 07/25/2025 2:01 PM EDT Impressions 07/25/2025 3:15 PM EDT The OB Ultrasound you requested has been resulted. Please navigate to the Imaging tab in [employer] for review. This message has been generated by the interface. Narrative Procedure Note Della Ochoa MD - 07/25/2025 IMPRESSION: The OB Ultrasound you requested has been resulted. Please navigate to theImaging tab in [employer] for review. This message has been generated by theinterface. Result Elsi Song MD IMG OB US PROCEDURES Final Resu lt * Treponema Pallidum (Syphilis) Antibodies with Reflex to RPR and RPR Titer (Those with NO known Syphilis) (06/27/2025 1:18 PM EDT) Syphilis Antibody (IgG+IgM) Nonreactive Nonreactive 06/27/2025 9:06 PM EDT [facility] Comment:Nonreactive. No sero logic evidence of syphilis. No follow-up necessary unless clinically indicated (e.g., early syphilis). Blood Venous blood specimen / Unknown Venipuncture / Unknown 06/27/2025 1:18 PM EDT 06/27/2025 6:41 PM EDT Result Elsi Song MD LAB BLOOD ORDERABLES Final Resu lt Performing Organization Address City/[facility]/ZIP Co de Phone Number [facility] [address] [place] [address] * Chlamydia trachomatis DNA by PCR (06/27/2025 1:18 PM EDT) Pathologist [facility] Chlamydia trachomatis DNA PCR Result Not Detected Not Detected 06/28/2025 2:36 PM EDT [facility] Urine Urine specimen obtained by clean catch procedure / Unknown Non-blood Collection / Unknown 06/27/2025 1:18 PM EDT 06/27/2025 6:49 PM EDT Narrative [facility] - 06/28/2025 2:36 PM EDT This test is performed by the [employer] instrument for Real Time PCR C. trachomatis and N. gonorrhea. This test is FDA approved for use with endocervical, vaginal, and urine specimens. This test is used for clinical purposes. It should not be regarded as invesigational or for research. The [facility] Clinical Microbiology [facility] is certified under the Clinical Laboratory Improvement Amendments of 1988 (CLIA-88) as qualified to perform high complexity clinical laboratory testing. Result Elsi Song MD LAB [facility] Final Result Performing Organization Address [facility] [place] [address] * HIV 1 & 2 Antibody/Antigen Screen (06/27/2025 1:18 PM EDT) Pathologist [facility] HIV 1 & 2 Antibody/Antigen Screen Non Reactive Non Reactive 06/27/2025 7:24 PM EDT [facility] Comment:Screening for HIV 1 & 2 antibodies, and P24 antigen is NONREACTIVE. No confirmatory testing is required. Blood Venous blood specimen / Unknown Venipuncture / Unknown 06/27/2025 1:18 PM EDT 06/27/2025 6:41 PM EDT Result Elsi Song MD LAB BLOOD ORDERABLES Final Resu lt Performing Organization Address [facility]/ZIP Co de Phone Number [facility] [address] [place] [address] * Hepatitis C Antibody w/Reflex to HCV Quant PCR (06/27/2025 1:18 PM EDT) Hepatitis C Antibody Negative Negative 06/27/2025 7:29 PM EDT [facility] Blood Venous blood specimen / Unknown Venipuncture / Unknown 06/27/2025 1:18 PM EDT 06/27/2025 6:40 PM EDT us Aren Song MD LAB BLOOD ORDERABLES Final Resu lt [facility] [address] [place] [address] * Drug Abuse Screen, Urine (06/27/2025 1:18 PM EDT) Amphetamine Screen Urine Negative Cutoff: 500 ng/mL 06/27/2025 7:30 PM EDT [facility] Benzodiazepines Screen Urine Negative Cutoff: 200 ng/mL 06/27/2025 7:30 PM EDT [facility] Cannabinoid Screen Urine Negative Cutoff: 50 ng/mL 06/27/2025 7:30 PM EDT [facility] Cocaine Screen Urine Negative Cutoff: 300 ng/mL 06/27/2025 7:30 PM EDT [facility] Barbiturate Screen Urine Negative Cutoff: 200 ng/mL 06/27/2025 7:30 PM EDT [facility] Opiate Screen Urine Negative Cutoff: 300 ng/mL 06/27/2025 7:30 PM EDT [facility] Methadone Screen Urine Negative Cutoff: 300 ng/mL 06/27/2025 7:30 PM EDT [facility] Buprenorphine Screen Urine Negative Cutoff: 10 ng/mL 06/27/2025 7:30 PM EDT [facility] Fentanyl Screen Urine Negative Cutoff: 1 ng/mL 06/27/2025 7:30 PM EDT [facility] Oxycodone Screen Urine Negative Cutoff: 100 ng/mL 06/27/2025 7:30 PM EDT [facility] Urine Urine specimen obtained by clean catch procedure / Unknown Non-blood Collection / Unknown 06/27/2025 1:18 PM EDT 06/27/2025 6:40 PM EDT us Aren Song MD LAB URINE ORDERABLES Final Resu lt Performing Organization Address [facility]/ZIP Co de Phone Number [facility] [address] [place] [address] * Neisseria gonorrhea DNA by PCR (06/27/2025 1:18 PM EDT) Neisseria gonorrhea DNA PCR Result Not Detected Not Detected. 06/28/2025 2:36 PM EDT [facility] Urine Urine specimen obtained by clean catch procedure / Unknown Non-blood Collection / Unknown 06/27/2025 1:18 PM EDT 06/27/2025 6:49 PM EDT Narrative [facility] - 06/28/2025 2:36 PM EDT This test is performed by the [employer] instrument for Real Time PCR C. trachomatis and N. gonorrhea. This test is FDA approved for use with endocervical, vaginal, and urine specimens. This test is used for clinical purposes. It should not be regarded as invesigational or for research. The [facility]biology [facility] is certified under the Clinical Laboratory Improvement Amendments of 1988 (CLIA-88) as qualified to perform high complexity clinical laboratory testing. Result Elsi Song MD LAB MICROBIOLOGY - [facility]AL [facility] Final Result Performing Organization Address [facility] Co de Phone Number [facility] [address] [place] [address] * (ABNORMAL) Rubella Antibody IgG (06/27/2025 1:18 PM EDT) Rubella Antibody IgG Positive(A ) Negative 06/27/2025 10:36 PM EDT [facility] Comment: Rubella IgG Result Interpretation: Negative: No [...] ORDERABLES Final Resu lt Performing Organization Address [facility]/ZIP Co de Phone Number [facility] [address] [place] [address] * Hepatitis B Surface Antigen (06/27/2025 1:18 PM EDT) Pathologist [facility] Hepatitis B Surf Antigen Negative Negative 06/27/2025 9:06 PM EDT [facility] Blood Venous blood specimen / Unknown Venipuncture / Unknown 06/27/2025 1:18 PM EDT 06/27/2025 6:41 PM EDT Result Elsi Song MD LAB BLOOD ORDERABLES Final Resu lt Performing Organization Address [facility] de Phone Number [facility] [address] [place] [address] * CBC W/O Differential (06/27/2025 1:18 PM EDT) Pathologist [facility] WBC Count 10.18 3.70 - 10.30 10*3/uL LAB HEMATOLOGY METHOD 06/27/2025 7:14 PM EDT [facility] RBC Count 4.77 3.90 - 5.20 10*6/uL LAB HEMATOLOGY METHOD 06/27/2025 7:14 PM EDT [facility] HGB 14.6 11.2 - 15.7 g/dL LAB HEMATOLOGY METHOD 06/27/2025 7:14 PM EDT [facility] HCT 42.5 34.0 - 45.0 % LAB HEMATOLOGY METHOD 06/27/2025 7:14 PM EDT [facility] Platelet Count 268 155 - 369 10*3/uL LAB HEMATOLOGY METHOD 06/27/2025 7:14 PM EDT [facility] MCV 89 79 - 98 fL LAB HEMATOLOGY METHOD 06/27/2025 7:14 PM EDT [facility] MCH 30.6 26.0 - 32.0 pg LAB HEMATOLOGY METHOD 06/27/2025 7:14 PM EDT [facility] MCHC 34.4 30.7 - 35.5 g/dL LAB HEMATOLOGY METHOD 06/27/2025 7:14 PM EDT [facility] RDW 13.3 11.5 - 14.5 % LAB HEMATOLOGY METHOD 06/27/2025 7:14 PM EDT [facility] MPV 11.8 8.8 - 12.5 fL LAB HEMATOLOGY METHOD 06/27/2025 7:14 PM EDT [facility] nRBC 0.0 <=0.0 per 100 WBCs LAB HEMATOLOGY METHOD 06/27/2025 7:14 PM EDT [facility] Blood Venous blood specimen / Unknown Venipuncture / Unknown 06/27/2025 1:18 PM EDT 06/27/2025 6:41 PM EDT us Aren Song MD LAB BLOOD ORDERABLES Final Resu lt Performing Organization Address City[facility]/ZIP Co de Phone Number [facility] [address] [place] [address] * Type and Screen (06/27/2025 1:18 PM EDT) ABO/Rh O Positive 06/27/2025 1:18 PM EDT BLOOD BANK Antibody Screen Negative 06/27/2025 1:18 PM EDT BLO[facility] BANK Specimen Expiration 06/30/2025 23:59 06/27/2025 1:18 PM EDT BLOOD BANK Blood Venous blood specimen / Unknown Venipuncture / Unknown 06/27/2025 1:18 PM EDT 06/27/2025 6:42 PM EDT us Aren Song MD LAB BLOOD BANK TEST ORDERABLES Final Result Performing Organization Address [facility] Co de Phone Number BLOOD BANK [address] [place] [address], * Urine Culture (06/27/2025 1:18 PM EDT) Culture <10,000 CFU/mL Mixed urogenital, fecal, or skin alesia present. 06/28/2025 4:51 PM EDT [facility] Urine Urine specimen obtained by clean catch procedure / Unknown Non-blood Collection / Unknown 06/27/2025 1:18 PM EDT 06/27/2025 6:49 PM EDT Result Elsi Song MD [facility] Final Result [facility] [address] [place] [address] * OB US 14+ Weeks Anatomy Scan (06/24/2025 1:49 PM EDT) Anatomical Region Laterality Modality Body Ultrasound 06/24/2025 1:15 PM EDT Impressions 06/26/2025 6:45 PM EDT The OB Ultrasound you requested has been resulted. Please navigate to the Imaging tab in [employer] for review. This message has been generated by the interface. Narrative Procedure Note Don Anderson MD - 06/26/2025 IMPRESSION: The OB Ultrasound you requested has been resulted. Please navigate to theImaging tab in [employer] for review. This message has been generated by theinterface. Result Elsi Song MD IMG OB US PROCEDURES Final Resu lt * HORIZON CUSTOM (06/13/2025 4:49 PM EDT) REPORT SUMMARY Please see the PDF for further information 06/18/2025 2:27 PM EDT [facility] Comment: Please see the PDF for further information Horizon Carrier Screen results were previously issued for this patient. A repeat specimen is not indicated. PANEL NAME HCS_OTHER 06/18/2025 2:27 PM EDT [facility] REPORT NOTE See Notes 06/18/2025 2:27 PM EDT [facility] Comment:Duplicate test. Harmeet rubin panel previously resulted under . FOOTNOTES See Notes 06/18/2025 2:27 PM EDT [facility] Comment: Please see the attached PDF for information regarding Conditions, Methodology, Disclaimers, and further information. Test performed by [employer]. : [address], [place] [address] CLIA ID #[id number] CLIA [employer] Business Segment Leader: Javier Tony, Ph.D., [facility] Blood Venous blood specimen / Unknown Venipuncture / Unknown 06/13/2025 4:49 PM EDT 06/13/2025 4:50 PM EDT us Aren BROCKERA BLOOD ORDERABLES Final R esult [facility] [address] [place] [address], * PANORAMA TEST (06/13/2025 4:49 PM EDT) REPORT SUMMARY Insufficient DNA 06/20/2025 9:46 AM EDT [facility] Comment: Insufficient DNA A risk assessment for conditions screened could not be produced due to insufficient DNA or borderline low fraction in combination with other factors in this sample. Low fraction could be attributed to normal variation, gestational age, maternal weight, and certain medications; also, this finding may be associated with some chromosome abnormalities. Review of the clinical history, ultrasound evaluation, and the option of diagnostic testing is recommended (ACOG Practice Bulletin,226, 2020). [facility] will accept a repeat sample. The likelihood of success with a redraw is summarized in the redraw success table found on page 2 of this report. REPORT NOTE See Notes 06/20/2025 9:46 AM EDT [facility] SEX OF FETUS N/A 2024 9:46 AM EDT [facility] FRACTION2 2.7% 9:46 AM EDT [facility] TRISOMY 21 RESULT TEXT No Result 06/20/2025 9:46 AM EDT [facility] TRISOMY 21 AGE-BASED RISK TEXT (0.08%) 06/20/2025 9:46 AM EDT [facility] TRISOMY 21 RISK SCORE TEXT N/A 06/20/2025 9:46 AM EDT [facility] TRISOMY 18 RESULT TEXT No Result 06/20/2025 9:46 AM EDT [facility] TRISOMY 18 AGE-BASED RISK TEXT 1/3,590 (0.03%) 06/20/2025 9:46 AM EDT [facility] TRISOMY 18 RISK SCORE TEXT N/A 06/20/2025 9:46 AM EDT [facility] TRISOMY 13 RESULT TEXT No Result 06/20/2025 9:46 AM EDT [facility] TRISOMY 13 AGE-BASED RISK TEXT <1/10,000 (<0.01%) 06/20/2025 9:46 AM EDT [facility] TRISOMY 13 RISK SCORE TEXT N/A 06/20/2025 9:46 AM EDT [facility] MONOSOMY X RESULT TEXT No Result 06/20/2025 9:46 AM EDT [facility] MONOSOMY X AGE-BASED RISK TEXT 1/568 (0.18%) 06/20/2025 9:46 AM EDT [facility] MONOSOMY X RISK SCORE TEXT N/A 06/20/2025 9:46 AM EDT [facility] TRIPLOIDY RESULT TEXT No Result 06/20/2025 9:46 AM EDT [facility] 22Q11.2 DELETION SYNDROME RESULT TEXT No Result 06/20/2025 9:46 AM EDT [facility] 22Q11.2 DELETION SYNDROME POPULATION-BASED RISK TEXT 1/2,000 06/20/2025 9:46 AM EDT [facility] 22Q11.2 DELETION SYNDROME RISK SCORE TEXT N/A 06/20/2025 9:46 AM EDT [facility] FOOTNOTES See Notes 06/20/2025 9:46 AM EDT [facility] Comment: Testing Methodology DNA isolated from maternal blood, which contains placental DNA, is amplified at specific loci using a targeted PCR assay and is sequenced using a high- throughput sequencer. fraction is determined using a proprietary algorithm incorporating data from single nucleotide polymorphism-based (SNP-based) next-generation sequencing [Pergament E et al. Obstet Gynecol. 2014 Aug;124(2 Pt 1):210-8]. If there is sufficient fraction, sequencing data is analyzed using a proprietary SNP- based algorithm to determine the copy number for chromosomes 13, 18, 21, X and Y. If ordered, specific microdeletions will be evaluated using similar methodology [Gaye PARKER et al. Am J Obstet Gynecol. 2015 Mar;212(3):332.e1-9]. If the fraction is insufficient, an additional algorithm to determine whether there is an increased risk for triploidy, trisomy 18, and trisomy 13 may be utilized, known as fraction based risk assessment (FFBR) [Annie et al. Ultrasound Obstet Gynecol 2019; 53:73-79]. If ordered on a vanishing twin , a proprietary analysis will be performed to differentiate between the viable/living fetus and the vanished fetus to allow for risk assessment of copy number of chromosomes 13,18, 21, X, Y, and specific microdeletions in the viable/living twin using the above described SNP- based algorithm. If ordered, and patient is RHD negative by genotype, RHD status will be evaluated using a proprietary algorithm if fraction is sufficient [Michael Godinez et al. Obstet Gynecol 2023;145:1?7]. However, some samples will not produce a result due to failure to meet the necessary quality thresholds. This test has been validated on women with a busch, twin, vanishing twin, or egg donor of at least nine weeks gestation. A result will not be available for higher order multiples and multiple gestation pregnancies with an egg donor or surrogate, or bone marrow transplant recipients. Complete test panel is not available for twin gestations and pregnancies achieved with an egg donor or surrogate. For twin pregnancies with a fraction value below the threshold for analysis, a sum of the fractions for both twins will be reported. As this assay is a screening test and not diagnostic, false positives and false negatives can occur. High risk test results need diagnostic confirmation by alternative testing methods. Low risk results do not fully exclude the diagnosis of any of the syndromes nor do they exclude the possibility of other chromosomal abnormalities or defects, which are not a part of this test. Potential sources of inaccurate results include, but are not limited to, mosaicism, low fraction, limitations of current diagnostic techniques, or misidentification of samples. This test will not identify all deletions associated with each microdeletion syndrome. This test has been validated for deletions ?0.5 Mb within the 22q11.2 A-D region. This test has been validated on full region deletions only for 1p36 deletion syndrome, Cri-du-chat syndrome, Prader Willi syndrome and Angelman syndrome and may be unable to detect smaller deletions. Microdeletion risk score may be dependent upon fraction, as deletions on the maternally inherited copy are difficult to identify at lower fractions. Test results should always be interpreted by a clinician in the context of clinical and familial data with the availability of genetic counseling when appropriate. Disclaimers The extraction, library preparation, and sequencing of this test were performed by [employer] [id number] [place] [address] [address], [place] [address] (CLIA ID [id number]). The data analysis and reporting of this test were performed by [employer] [address], [place] [address] (CLIA ID [id number]). The performance characteristics of this test were developed by [employer] Software.(CLIA ID [id number]). This test has not been cleared or approved by the U.S. Food and Drug Administration (FDA). These laboratories are regulated under CLIA as qualified to perform high-complexity testing. 2024 [employer]. All Rights Reserved. Please refer to the attached PDF report Reviewed By: Sole Webb M.D., Ph.D., [facility], Senior Tool Pusher [facility] Water Resources Business Segment Leader: Javier Tony, Ph.D., [facility] IF THE ORDERING PROVIDER HAS QUESTIONS OR WISHES TO DISCUSS THE RESULTS, PLEASE CONTACT US AT [phone] #[phone]. Ask for the NIPT genetic counselor labor relations specialist. 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
--- OUTSIDE RECORDS SUMMARY | 2025-08-20 00:25 | XMS_ITS | Encounter Summary ---
Author Organization Healthcare Address [address] [place] [address] Care Team Providers Care Body Work Auto Trimmer Name Role Phone Pcp, No Primary Care Provider Unavailabl e Encounter Details Date Type Department Care Team (Latest Contact Info) Description 06/27/2025 Travel Social History Tobacco Use Types Packs/Day [...] AM EDT Routine Obstetrics & Gynecology [address] [place] [address] Aren Song MD [address] [place] [address] 09/19/2025 9:30 AM EST Routine Obstetrics & Gynecology [address] [place] [address] Aren Song MD [address] [place] [address] 10/03/2025 10:30 AM EST [facility]ine [facility] [address] [place] [address] Aren Song MD [address] [place] [address] 10/03/2025 10:40 AM EST Appointment [facility] [address] [place] [address] documented as of this encounter Goals Goal Patient Goal Type Associated Problems Recent Progress Patient-Stated? Author Delayed Care Plan CPM S24 PP LABOR (OBSTETRICS) No Open Scheduling, Background documented as of this encounter Visit Diagnoses Not on filedocumented in this encounter Additional Health Concerns Active [...] documented as of this encounter Care Teams Body Work Auto Trimmer Relationship Specialty Start Date End Date Pcp, No [address] [place] [address] PCP - General Family Medicine 05/02/25 documented as of this encounter
--- OUTSIDE RECORDS SUMMARY | 2025-08-20 00:25 | XMS_ITS | Encounter Summary ---
Author Organization Healthcare Address [address] [place] [address] Care Team Providers Care Vp Securities Name Role Phone Pcp, No Primary Care Provider Unavailabl e Encounter Details Date Type Department Care Team (Latest Contact Info) Description 08/15/2025 Travel Social History Tobacco Use Types Packs/Day [...] things Not at all 08/15/2025 9:00 AM EDT Lisette Orr Feeling down, depressed, or hopeless Not at all 08/15/2025 9:00 AM EDT Lisette Orr Patient Health Questionnaire -2 Score 0 08/15/2025 9:00 AM EDT Lisette Orr * Question Answer Date of Assessment Author Trouble falling or staying a sleep, or sleeping too much Not at all 08/15/2025 9:00 AM TIFFANIET Lisette Orr Feeling tired or having cynthia le energy Not at all 08/15/2025 9:00 AM Lisette Chavez Poor appetite or overeating Not at all [...] Questionnaire -9 Score 0 08/15/2025 9:00 AM Lisette Chavez * How difficult have these problems made [...] at all 08/15/2025 9:00 AM Lisette Lopes documented as of this encounter Plan of Treatment Upcoming Encounters Date Type Department Care Team (Late st Contact Info) Description 09/05/2025 11:00 AM EDT Routine Obstetrics & Gynecology [address] [place] [address] Aren Song MD [address] [place] [address] 09/19/2025 9:30 AM EST Routine [facility] [address] [place] [address] Aren Song MD [address] [place] [address] 10/03/2025 10:30 AM EST Routine Ob[facility]etric[facility] Gynecology [address] [place] [address] Aren Song MD [address] [place] [address] 10/03/2025 10:40 AM EST Appointment [facility] [address] [place] [address] documented as of this encounter Goals Goal [...] documented as of this encounter Care Teams Vp Securities Relationship Specialty Start Date End Date Pcp, Brittany [address] [place] [address] PCP - General Family Medicine 05/02/25 documented as of this encounter
--- OUTSIDE RECORDS SUMMARY | 2025-08-20 00:25 | XMS_ITS | Encounter Summary ---
Author Organization Healthcare Address [address] [place] [address] Care Team Providers Care Preparation Room Manager Name Role Phone Pcp, No Primary Care Provider Unavailabl e Reason for Visit * Reason Comments Med Refill Encounter Details Date Type Department Care Team (Late st Contact Info) Description 08/05/2025 Refill Obstetrics & Gynecology [address] [place] [address] Aren Song MD [address] [place] [address] Palpitations; Anxiety disorder, unspecified Social History Tobacco Use Types Packs/Day Years [...] Info) Description 09/05/2025 11:00 AM EDT Routine [facility] [address] [place] [address] Aren Song MD [address] [place] [address] 09/19/2025 9:30 AM EST Routine Obstetric[facility] & Gynecology [address] [place] [address] Aren Song MD [address] [place] [address] 10/03/2025 10:30 AM EST Routine Obst[facility]s & Gynecology [address] [place] [address] Aren Song MD [address] [place] [address] 10/03/2025 10:40 AM EST Appointment [facility] [address] [place] [address] documented as of this encounter Goals Goal Patient Goal Type Associated Problems Recent Progress Patient-Stated? Author Delayed Care Plan CPM S24 PP LABOR (OBSTETRICS) No Open Scheduling, Background documented as of this encounter Visit Diagnoses Diagnosis Palpitations Anxiety disorder, unspecified documented in this encounter Additional Health Concerns [...] documented as of this encounter Care Teams Preparation Room Manager Relationship Specialty Start Date End Date Pcp, No [address] [place] [address] PCP - General Family Medicine 05/02/25 documented as of this encounter
--- OUTSIDE RECORDS SUMMARY | 2025-08-20 00:25 | XMS_ITS | Encounter Summary ---
Author Organization Healthcare Address [address] [place] [address] Care Team Providers Care Ec Teacher Name Role Phone Pcp, No Primary Care Provider Unavailabl e Encounter Details Date Type Department Care Team (Late st Contact Info) Description 07/22/2025 Telephone Obstetrics & Gynecology [address] [place] [address] Aren Song MD [address] [place] [address] Social History Tobacco Use Types [...] AM EDT documented as of this encounter Miscellaneous Notes * Telephone Encounter - Cristela Godinez - 07/22/2025 9:24 AM EDT Lm on to confirm apt for 07/25 documented in this encounter Plan of Treatment Upcoming Encounters Date Type Department Care Team (Late st Contact Info) Description 09/05/2025 11:00 AM EDT Routine Obstetrics & Gynecology [address] [place] [address] Aren Song MD [address] [place] [address] 09/19/2025 9:30 AM EST Routine Obstetrics & Gynecology [address] [place] [address] Aren Song MD [address] [place] [address] 10/03/2025 10:30 AM EST Routine Obstetrics & Gynecology [address] [place] [address] Aren Song MD [address] [place] [address] 10/03/2025 10:40 AM EST Appointment [facility] [address] [place] [address] documented as of this encounter Goals Goal [...] documented as of this encounter Care Teams Ec Teacher Relationship Specialty Start Date End Date Pcp, No [address] [place] [address] PCP - General Family Medicine 05/02/25 documented as of this encounter
--- OUTSIDE RECORDS SUMMARY | 2025-08-20 00:25 | XMS_ITS | Encounter Summary ---
Author Organization Healthcare Address [address] [place] [address] Care Team Providers Care Medical Claims Examiner Name Role Phone Pcp, No Primary Care Provider Unavailabl e Encounter Details Date Type Department Care Team (Latest Contact Info) Description 07/25/2025 Travel Social History Tobacco Use Types Packs/Day [...] Christi Daily documented as of this encounter Plan of Treatment Upcoming Encounters Date Type Department Care Team (Late st Contact Info) Description 09/05/2025 11:00 AM EDT Routine Obstetrics & Gynecology [address] [place] [address] Aren Song MD [address] [place] [address] 09/19/2025 9:30 AM EST Routine Obstetrics & Gynecology [address] [place] [address] Aren Song MD [address] [place] [address] 10/03/2025 10:30 AM EST Routine Obstetrics & Gynecology [address] [place] [address] Aren Song MD [address] [place] [address] 10/03/2025 10:40 AM EST Appointment [facility] [address] [place] [address] documented as of this encounter Goals Goal [...] documented as of this encounter Care Teams Medical Claims Examiner Relationship Specialty Start Date End Date Pcp, No [address] [place] [address] PCP - General Family Medicine 05/02/25 documented as of this encounter
--- OUTSIDE RECORDS SUMMARY | 2025-08-20 00:25 | XMS_ITS | Patient Health Record ---
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 Plan Of Treatment No Information Insurance Providers Payer Name Payer Address Payer Phone Subscriber Number Group Number Insured Name Patient Relationship to Insured Coverage Start Date Coverage End Date [employer] ROS[employer] D[facility] [address] [address] [place], [place] [id number] Tammygary Anaya suarez Self - patient is the insured 2 Medical (General) History 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 History ICD Code Atrial fibrillation Iron deficiency anemia Surgical History Surgery Date(Month/Year)
--- OUTSIDE RECORDS SUMMARY | 2025-08-20 00:26 | XMS_ITS | Encounter Summary ---
Author Organization Healthcare Address [address] [place] [address] Care Team Providers Care Commercial Lines Manager Name Role Phone Pcp, No Primary Care Provider Unavailabl e Encounter Details Date Type Department Care Team (Late st Contact Info) Description 05/23/2025 Results Follow-Up Obstetrics & Gynecology [address] [place] [address] Aren Song MD [address] [place] [address] Social History Tobacco Use Types [...] pleasure in doing things Not at all 06/13/2025 4:41 PM EDT Rosanna Chávez Feeling down, depressed, or hopeless Not at all 06/13/2025 4:41 PM EDT Rosanna Chávez Patient Health Questionnaire -2 Score 0 06/13/2025 4:41 PM EDT Rosanna Chávez * How difficult have these problems made it for you to do your work, take care of things at home, or get along with other people? Answer Date of Assessment Author Not difficult at all 06/13/2025 4:41 PM EDT Rosanna Snyder am documented as of this encounter Plan of Treatment Upcoming Encounters Date Type Department Care Team (Late st Contact Info) Description 09/05/2025 11:00 AM EDT Routine Obstetrics & Gynecology [address] [place] [address] Aren Song MD [address] [place] [address] 09/19/2025 9:30 AM EST Routine Obstetrics & Gynecology [address] [place] [address] Aren Song MD [address] [place] [address] 10/03/2025 10:30 AM EST Routine Obstetrics & Gynecology [address] [place] [address] Aren Song MD [address] [place] [address] 10/03/2025 10:40 AM EST Appointment [facility] [address] [place] [address] documented as of this encounter Goals Goal [...] has been complete d for the patient 05/17/2025 1:39 PM EDT A Body Mass Index follow-up plan has been documented for the patient 05/17/2025 1:50 PM EDT documented as of this encounter Care Teams Commercial Lines Manager Relationship Specialty Start Date End Date Pcp, [place] [address] PCP - General Family Medicine 05/02/25 documented as of this encounter
--- OUTSIDE RECORDS SUMMARY | 2025-08-20 00:26 | XMS_ITS | Clinical Summary ---
[facility] Address [address] [place] [address] Phone Care Team Providers Care Tax Manager Public Name Role Phone Malia DALE, [facility] [phone] Conditions or Problems No information available. Medications No information available. Medications Administered No information available. Allergies, Adverse Reactions, Alerts No information available. Results No information available. Plan of Care No information available. Procedures No information available. Vital Signs No information available. Immunizations No information available. Advance Directives No information available.
--- OUTSIDE RECORDS SUMMARY | 2025-08-20 00:26 | XMS_ITS | Clinical Summary ---
[facility] Organization [facility] Address [address] [place] [address] Care Team Providers Care Bar Tender Name Role Phone System, Provider Not In Primary Care Provider Un available Allergies Active Allergy Reactions Criticality Noted Date Comments Hydromorphone Hcl 02/19/2017 Pressure in face Penicillins Anaphylaxis High 02/19/2017 Medications acetaminophen (TYLENOL) 325 MG tablet Take 2 tablets by mouth Every 4 (Four) Hours As Needed for Mild Pain (1-3). 60 tablet 7 Active Additional Information Patient taking differently: 500 mgOral Every 4 Hours PRN, Mild Pain, Reported on 02/24/2025 hydrOXYzine (ATARAX) 25 MG tablet Take 1 tablet by mouth 3 (Three) Times a Day As Needed for Itching. 90 tablet 3 3 Active propranolol LA (INDERAL LA) 80 MG 24 hr capsuleIndicati ons:Palpitation s,Anxiety Take 1 capsule by mouth Daily. 90 capsule 1 5 Active Active Problems Problem Noted Date Diagnosed Date Palpitations 10/02/2020 Syncope and collapse 10/02/2020 Dizziness 10/02/2020 Racing heart beat 10/02/2020 Spontaneous vaginal delivery 02/28/2017 Resolved Problems Problem Noted Date Diagnosed Date Resolved Date and not yet delivered 02/26/2017 02/28/2017 Encounters Date Type Department Care Team Description 06/15/2025 Refill [facility] [address] [facility] [address] [place] [address] Brianne Hendrix APRN Med Refill from Last 3 Months Family History 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 Relation Name Comments No Known Problems Brother 1 No Known Problems Brother 2 Lung disease Father Obesity Father Heart disease Maternal Grandfather Heart attack Maternal Great-Grandmother Heart disease Maternal Great-Grandmother Heart attack Maternal Uncle Heart disease Maternal Uncle Drug abuse Mother Heart murmur Mother Mental illness Mother Ovarian cancer Mother No Known Problems Paternal Grandfather Diabetes Paternal Grandmother Heart murmur Sister Thyroid disease Sister Relation Name Status Comments Brother 1 Alive Brother 2 Alive Father Alive Maternal Grandfather Alive Maternal Grandmother Alive Maternal Great-Grandmother Maternal Uncle Mother Alive Paternal Grandfather Paternal Grandmother Sister Alive Social History Tobacco Use Types Packs/Day Years Used Date Smoking Tobacco: Former Cigarettes Smokeless Tobacco: Never Tobacco Cessation:Counseling Given: Yes Comments:vape, occasional cigarettes Alcohol Use Standard Drinks/Week Comments No 0 (1 standard drink = 0.6 oz pur e alcohol) Comments No Sex and Gender Information Value Date Recorded Sex Assigned at Not on file Legal Sex Female 12:23 PM EDT Gender Identity Not on file Sexual Orientation Not on file Last Filed Vital Signs Vital Sign Reading Time Taken Comments Blood Pressure 116/70 02/24/2025 9:22 AM EDT Pulse 70 02/24/2025 9:22 AM EDT Temperature 36.7 C (98 F) 06/09/2023 10:57 AM EDT Respiratory Rate 18 02/24/2025 9:22 AM EDT Oxygen Saturation 98% 02/24/2025 9:22 AM EDT Inhaled Oxygen Concentration - - Weight 144 kg (317 lb) 02/24/2025 9:22 AM EDT Height 165.1 cm (5' 5 ) 02/24/2025 9:22 AM EDT Body Mass Index 52.75 02/24/2025 9:22 AM EDT Plan of Treatment Health Maintenance Due Date Last Done Comments Annual Gynecologic Pelvic an d Breast Exam 2001 ANNUAL PHYSICAL 02/20/2017 HEPATITIS C SCREENING 02/20/2017 MENINGOCOCCAL B VACCINE (3 o f 3 - Trumenba SCDM 3-Dose Series) 09/26/2018 05/26/2018, 02/23/2018 PAP SMEAR 2022 TDAP/TD VACCINES (2 - Td or Tdap) 08/09/2022 012 INFLUENZA VACCINE 06/10/2025 08/21/2015 Pneumococcal Vaccine 0-49 Completed 2001, 2001, 2001, Additional history exists CHLAMYDIA SCREENING Discontinued 01/28/2017 HPV VACCINES Completed 10/23/2017, 08/10/2012 Procedures Procedure Name Priority Date/Time Associated Diagnosis Comments CHLAMYDIA TRACHOMATIS, NEISSERIA GONORRHOEAE, PCR W/ CONFIRMATION Routine 01/28/2017 from Last 3 Months or Most Recently Relevant to Health Maintenance Results * Chlamydia trachomatis, Neisseria gonorrhoeae, PCR w/ confirmation (01/28/2017) External Chlamydia Screen Negative Swab Specimen from vagina / Unknown [facility] Provider MICROBIOLOGY - GENERAL OR DERABLES Final Result from Last 3 Months or Most Recently Relevant to Health [place] [address] [place] [address] [employer] [place] Advance Directives * Full Code (Latest Code Status on File) Date Activated Date Inactivated Comments 02/26/2017 11:59 PM 02/28/2017 7:43 PM * Full Code Date Activated Date Inactivated Comments 02/26/2017 12:22 PM 02/26/2017 11:59 PM Care Teams Bar Tender Relationship Specialty Start Date End Date System, [place] [address] PCP - General 10/02/20
--- OUTSIDE RECORDS SUMMARY | 2025-08-20 00:26 | XMS_ITS | Patient Health Record ---
Author [facility] Address [address] [place] [address] Care Team Providers Care Poundmaster Name Role Phone LOWELL MCNAMARA Primary Care [...] Risk Notes Problem Major depression, single episode (62409270) Major depressive disorder, single episode, unspecified (F32.9) Active confirmed Problem Anxiety disorder (011111321) Anxiety disorder, unspecified (F41.9) Active confirmed Problem Hesitancy of micturition (8197653) Hesitancy of micturition (R39.11) Active confirmed Problem Obesity (589136926) Obesity, unspecified (E66.9) Active confirmed Problem Attention deficit hyperactivity disorder (312858217) Attention-deficit hyperactivity disorder, predominantly hyperactive type (F90.1) Active confirmed Problem Tension-type headache (895451829) Tension-type headache, unspecified, not intractable (G44.209) Active confirmed Problem Constipation (47501929) Constipation, unspecified (K59.00) Active confirmed Problem Scoliosis (306939679) Scoliosis, unspecified (M41.9) Active confirmed Problem Urinary incontinence (808835102) Unspecified urinary incontinence (R32) Active confirmed Plan Of Treatment Pending Test Test Name Order Date Flu Test 11/25/2017 Strep Test 11/25/2017 Insurance Providers Payer Name Payer Address Payer Phone Subscriber Number Group Number Insured Name Patient Relationship to Insured Coverage Start Date Coverage End Date [employer] [address] [place] [address] [id number] Anaya Nguyễn Self - patient is the insured [employer] MEDICA[employer] [address] [place] [phone] [id number] Anaya Nguyễn Self - patient is the insured Medical (General) History 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 History ICD Code Constipation, unspecified K59.00 Scoliosis, unspecified M41.9 Surgical History Surgery Date(Month/Year) oral surgery episitomy Hospitalization History Reason Date(Month/Year) vaginal x 1
--- OUTSIDE RECORDS SUMMARY | 2025-08-20 00:27 | XMS_ITS | Patient Health Record ---
Author Organization [facility] Address [address] [place] [address] Care Team Providers Care Configuration Management Consultant Name Role Phone Deloris Kaba Unavailable [phone] Allergies Allergen (clinical drug ingredient) Drug/Non Drug Allergy documented on EMR Reaction Allergy Type Onset Date Status PENICILLIN V POTASSIUM (PENICILLIN V POTASSIUM TAB Unspecified Drug Allergy 02/17/2017 Active hydromorphone DILAUDID (uncoded) Unspecified Allergy 02/17 Active Reason For Referral No Information Social History Social History Additional Details Category Social Info Options Details Miscellaneous: Sexually active: SEXUAL AC TIV: Current Problems Problem Type SNOMED Code ICD Code Onset Dates Problem Status W/U Status Risk Notes Problem Pelvic and perineal pain (628151159) Abdominal pain, suprapubic (R10.2) Active confirmed Pelvic Pain Problem Pain in female genitalia on intercourse (45017043) Coitus painful for female (N94.10) Active confirmed Unspecified dyspareunia Problem Surveillance of contraception (596837070) Chooses not to have children (Z30.9) 017 Active confirmed Contraception management Problem Exposure to sexually transmissible disorder (297981424) Chlamydia contact (Z20.2) Active confirmed Contact with and (suspected) exposure to infections with a predominantly sexual mode of transmission Plan Of Treatment No Information Medical (General) History 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 History ICD Code HEART MURMUR ACID REFLUX ANXIETY BREAST PAIN CHRONIC PELVIC PAIN Provera 10 mg tablet, BY MOUTH Surgical History Surgery Date(Month/Year) DENIES
--- OUTSIDE RECORDS SUMMARY | 2025-08-20 00:27 | XMS_ITS | Encounter Summary ---
Author Organization Healthcare Address [address] [place] [address] Care Team Providers Care Adult Secondary Education Instructor Name Role Phone Pcp, No Primary Care Provider Unavailabl e Encounter Details Date Type Department Care Team (Latest Contact Info) Description 06/24/2025 Travel Social History Tobacco Use Types Packs/Day [...] AM EDT Routine Obstetrics & Gynecology [address] [place] [address] Aren Song MD [address] [place] [address] 09/19/2025 9:30 AM EST Routine Obstetrics & Gynecology [address] [place] [address] Aren Song MD [address] [place] [address] 10/03/2025 10:30 AM EST Routine [facility] [address] [place] [address] Aren Song MD [address] [place] [address] 10/03/2025 10:40 AM EST Appointment [facility] [address] [place] [address] documented as of this encounter Goals Goal [...] documented as of this encounter Care Teams Adult Secondary Education Instructor Relationship Specialty Start Date End Date Pcp, No [address] [place] [address] PCP - General Family Medicine 05/02/25 documented as of this encounter
--- OUTSIDE RECORDS SUMMARY | 2025-08-20 00:27 | XMS_ITS | Encounter Summary ---
Author Organization Healthcare Address [address] [id number] Care Team Providers Care Smalltalk Developer Name Role Phone Pcp, No Primary Care Provider Unavailabl e Encounter Details Date Type Department Care Team (Late st Contact Info) Description 06/20/2025 [facility] Obstetrics & Gynecology [address] [place] [address] Aren Song MD [address] [place] [address] Social History Tobacco Use Types [...] encounter Miscellaneous Notes * Telephone Encounter - Mindy Matute RN - 06/24/2025 3:37 PM EDT RN called pt--pt scheduled for NOB labs (blood and urine) on the OP schedule * Telephone Encounter - Lisette Orr - 06/20/2025 1:31 PM EDT Called and spoke with patient after reviewing with Dr Song, most of the time these come back issusificant is because of increased bmi, patient aware, voiced understand, patient is aware we will follow her closely * Telephone Encounter - Macoh Samuelbrigette Palacio - 06/20/2025 12:53 PM EDT Clinical Concern/Question Reason for Call: Pt calling about recent results. Asking to discuss them as she is very anxious about them. Please call. Best contact number: [phone] (home) Optimal time of day to reach [...] AM EDT Routine Obstetrics & Gynecology [address] [place] [address] Aren Song MD [address] [place] [address] 09/19/2025 9:30 AM EST Routine Obstetrics & Gynecology [address] [place] [address] Aren Song MD [address] [place] [address] 10/03/2025 10:30 AM EST Routine Obstetrics & Gynecology [address] [place] [address] Aren Song MD [address] [place] [address] 10/03/2025 10:40 AM EST Appointment [facility] [address] [place] [address] documented as of this encounter Goals Goal [...] plan has been documented for the patient 06/13/2025 5:14 PM EDT documented as of this encounter Care Teams Smalltalk Developer Relationship Specialty Start Date End Date Pcp, No [address] [place] [address] PCP - General Family Medicine 05/02/25 documented as of this encounter
--- OUTSIDE RECORDS SUMMARY | 2025-08-20 00:27 | XMS_ITS | Encounter Summary ---
Author Organization Healthcare Address [address] [place] [address] Care Team Providers Care Principal Automation Engineer Name Role Phone Pcp, No Primary Care Provider Unavailabl e Encounter Details Date Type Department Care Team (Late st Contact Info) Description 06/17/2025 Telephone Obstetrics & Gynecology [address] [place] [address] Aren Song MD [address] [place] [address] Social History Tobacco Use Types [...] encounter Miscellaneous Notes * Telephone Encounter - Shawnee Godinez - 06/17/2025 4:26 PM EDT Called Pamela back and pt has already had the H14 done. I let her know that they can cancel the test. * Telephone Encounter - Brooklynn Osorio - 06/17/2025 4:09 PM EDT Clinical Concern/Question Reason for Call: Pamela has a question for a nurse Best contact number: Other: [phone] Josephine Optimal time of day to reach caller: [...] Upcoming Encounters Date Type Department Care Team ([facility] st Contact Info) Description 09/05/2025 11:00 AM EDT Routine Obstetrics & Gynecology [address] [place] [address] Aren Song MD [address] [place] [address] 09/19/2025 9:30 AM EST Routine Obstetrics & Gynecology [address] [place] [address] Aren Song MD [address] [place] [address] 10/03/2025 10:30 AM EST Routine Obstetrics & Gynecology [address] [place] [address] Aren Song MD [address] [place] [address] 10/03/2025 10:40 AM EST Appointment [facility] [address] [place] [address] documented as of this encounter Goals Goal [...] documented as of this encounter Care Teams Principal Automation Engineer Relationship Specialty Start Date End Date Pcp, Brittany [address] [place] [address] PCP - General Family Medicine 05/02/25 documented as of this encounter
--- OUTSIDE RECORDS SUMMARY | 2025-08-20 00:27 | XMS_ITS | Encounter Summary ---
Author Organization Healthcare Address [address] [place] [address] Care Team Providers Care Health Services Information Specialist Name Role Phone Pcp, No Primary Care Provider Unavailabl e Encounter Details Date Type Department Care Team (Late st Contact Info) Description 06/20/2025 Results Follow-Up Obstetrics & Gynecology [address] [place] [address] Aren Song MD [address] [place] [address] Social History Tobacco Use Types [...] encounter Miscellaneous Notes * Telephone Encounter - Teodora Garciabrigette Burns - 06/24/2025 3:11 PM EDT Clinical Concern/Question Reason for Call: Pt is calling concerning her labs being transferred, Pt states she was called and she sent Dr. Song a message through zLense. Please call back with any questions. Best contact number: [phone] (mobile) Optimal time of day to reach caller: ANYTIME Additional comments/information from caller: Not Applicable Note: Please do not reply to this [...] 11:00 AM EDT Routine Obstetrics & Gynecology [address] [place] [address] Aren Song MD [address] [place] [address] 09/19/2025 9:30 AM EST Routine Obstetrics & Gynecology [address] [place] [address] Aren Song MD [address] [place] [address] 10/03/2025 10:30 AM EST Routine Obstetrics & Gynecology [address] [place] [address] Aren Song MD [address] [place] [address] 10/03/2025 10:40 AM EST Appointment [facility] [address] [place] [address] documented as of this encounter Goals Goal [...] documented as of this encounter Care Teams Health Services Information Specialist Relationship Specialty Start Date End Date Pcp, [place] [address] PCP - General Family Medicine 05/02/25 documented as of this encounter
[2025-08-20 01:14] VITALS: BMI 54.3
[2025-08-20 01:35] LABS: Microscopic, Urine URINE MICROSCOPIC (MICROSCOPIC)
[2025-08-20 01:37] LABS: Bilirubin,Urine Negative (Negative); Color,Urine YELLOW (Yellow); Glucose,Urine (UA) Negative (Negative); Ketones,Urine Negative (Negative); Leukocyte Esterase,Urine 3+ (Negative); PH,Urine 6.0 (5.0-8.5); Protein,Urine Negative (Negative); Specific Gravity, Urine 1.010 (1.005-1.030); Urobilinogen,Urine 0.2 EU/dl (0.2)
[2025-08-20 01:38] VITALS: BP 112/76; PULSE 98; RESP 18; TEMP 37.1; O2SAT 93; BMI 54.3
[2025-08-20 01:38] LABS: Fetal Membrane Rupture (Rapid) Negative (Negative)
[2025-08-20 01:52] LABS: Amorphous Sediment,Urine 1+ /lpf; Bacteria,Urine 1+ /lpf; Squamous Epithelial Cell,Urine 20-50 #/hpf (0-5); WBC,Urine 20-50 #/hpf (0-3)
== END 2025-08-20 02:27 | disposition home or self-care (01) ==
LOC: OBOUT 00:24 → OB 00:24
PROVIDERS: Visit Provider Obstetrics & Gynecology
DX: O47.02 False labor before 37 completed weeks of gestation, second trimester (principal); O36.8120 Decreased fetal movements, second trimester, not applicable or unspecified; O41.8X20 Other specified disorders of amniotic fluid and membranes, second trimester, not applicable or unspecified; Z3A.26 26 weeks gestation of pregnancy
CPT/HCPCS: 59025; 81001; 84112; 87086; 99212; G0463

== ENCOUNTER 2025-08-30 02:33 | Outpatient (CLI) | payer MEDICAID, SELFPAY ==
--- OUTSIDE RECORDS SUMMARY | 2025-07-25 13:45 | XMS_ITS | Encounter Summary ---
Author Organization [facility] Address [address] [place] [address] Care Team Providers Care Plate Mill Mill Hand Name Role Phone Pcp, No Primary Care Provider Unavailabl e Reason for Referral * Imaging (Routine) - Authorized Specialty Diagnoses / Procedures Referred By Migue devlin Referred To Contact Diagnoses Velamentous insertion of umbilical cord in second trimester Procedures OB US Follow Up Transabdominal Approach Aren Song MD [address] [place] [address] Phone: tel: fax: Referral ID Status Reason Start Date Expiration Date V isits Requested Visits Authorized [id number] Authorized 07/25/2025 01/24/2027 1 1 Reason for Visit * Reason Comments Routine Visit Passing out frequ ently Encounter Details Date Type Department Care Team (Late Contact Info) Description 07/25/2025 1:45 PM EDT Routine Obstetrics & Gynecology [address] [place] [address] Aren Song MD [address] [place] [address] 22 weeks gestation of (Primary [...] Risk Indicated 07/25/2025 2:30 PM EDT Sherrie Daliy * How difficult have these problems made [...] results found for: GLUF , GLUT1 , [id number] , [id number] Imaging Anatomy US OK - VCI noted [...] AM EDT Routine Obstetrics & Gynecology [address] [place] [address] Aren Song MD [address] [place] [address] 09/19/2025 9:30 AM EST Routine Obstetrics & Gynecology [address] [place] [address] Aren Song MD [address] [place] [address] 10/03/2025 10:30 AM EST Routine Obstetrics & Gynecology [address] [place] [address] Aren Song MD [address] [place] [address] 10/03/2025 10:40 AM EST Appointment [facility] Ashleigh WEBB Ultrasound [address] [place] [address] Scheduled Orders Name Type Priority Associated Diagnoses [...] documented as of this encounter Care Teams Plate Mill Mill Hand Relationship Specialty Start Date End Date Pcp, No [address] [place] [address] PCP - General Family Medicine 05/02/25 documented as of this encounter
--- OUTSIDE RECORDS SUMMARY | 2025-07-25 13:50 | XMS_ITS | Encounter Summary ---
Author Organization [facility] Address [address] [place] [address] Care Team Providers Care Retail Selling Specialist Name Role Phone Pcp, No Primary Care Provider Unavailabl e Reason for Referral * Imaging (Routine) - Closed Specialty Diagnoses / Procedures Referred By Migue devlin Referred To Contact Diagnoses 18 weeks gestation of Procedures OB US Follow Up Transabdominal Approach OB US 14+ [place]eks [place] [address] [place] [phone] Phone: tel: fax: Referral ID Status Reason Start Date Expiration Date Visits Re quested Visits Authorized [id number] Closed 06/24/2025 12/24/2026 1 1 Reason for Visit * Imaging (Routine) - Closed Specialty Diagnoses / Procedures Referred By Migue devlin Referred To Contact Diagnoses 18 weeks gestation of Procedures OB US Follow Up Transabdominal Approach OB US 14+ Weeks Anatomy Scan Aren Song MD [address] [place] [address] Phone: tel: fax: Referral ID Status Reason Start Date Expiration Date Visits Re quested Visits Authorized [id number] Closed 06/24/2025 12/24/2026 1 1 Encounter Details Date Type Department Care Team (Latest Contact Info) Description 07/25/2025 1:50 PM EDT - 07/25/2025 11:59 PM EDT Hospital Encounter [facility] Ashleigh WEBB Ultrasound [address] [place] [address] 18 weeks gestation of Discharge Disposition: Home or [...] AM EDT documented as of this encounter Functional Status * Over the [...] Wish to be (Past 1 Month) No 2:30 PM EDT Christi Daily 2. Non-Specific Active Suici buzz Thoughts (Past 1 Month) No 07/25/2025 2:30 PM EDT Christi Daily 6. Suicidal Behavior (Lifetime) No 2:30 PM EDT Christi Daily documented as of this encounter Medications at Time of Discharge nystatin (Mycostatin) 156532 UNIT/GM powder AAA BID prn 60 g [...] AM EDT Routine Obstetrics & Gynecology [address] [place] [address] Aren Song MD [address] [place] [address] 09/19/2025 9:30 AM EST Routine Obstetrics & Gynecology [address] [place] [address] Aren Song MD [address] [place] [address] 10/03/2025 10:30 AM EST Routine Obstetrics & Gynecology [address] [place] [address] Aren Song MD [address] [place] [address] 10/03/2025 10:40 AM EST Appointment [facility] Ultrasound [address] [place] [address] documented as of this encounter Goals Goal Patient Goal Type Associated Problems Recent Progress Patient-Stated? Author Delayed Care Plan CPM S24 PP LABOR (OBSTETRICS) No Open Scheduling, Background documented as of this encounter Procedures Procedure Name Priority Date/Time Associated Diagnosis Comments OB US FOLLOW UP TRANSABDOMINAL APPROACH Routine 07/25/2025 2:24 PM EDT 18 weeks gestation of documented in this encounter Results * OB US Follow Up Transabdominal Approach (07/25/2025 2:24 PM EDT) Anatomical Region Laterality Modality Body Ultrasound 07/25/2025 2:01 PM EDT Impressions 07/25/2025 3:15 PM EDT The OB Ultrasound you requested has been resulted. Please navigate to the Imaging tab in [employer] for review. This message has been generated by the interface. Narrative Procedure Note Della Ochoa MD - 07/25/2025 IMPRESSION: The OB Ultrasound you requested has been resulted. Please navigate to theImaging tab in [employer] for review. This message has been generated by [employer]. us Aren Song MD IMG OB US PROCEDURES Final Resu lt documented in this encounter Visit Diagnoses Diagnosis 18 weeks gestation of documented in this [...] documented as of this encounter Care Teams Retail Selling Specialist Relationship Specialty Start Date End Date Pcp, Brittany [address] [place] [address] PCP - General Family Medicine 05/02/25 documented as of this encounter
--- OUTSIDE RECORDS SUMMARY | 2025-08-15 09:00 | XMS_ITS | Encounter Summary ---
Author Organization Healthcare Address [address] [id number] Care Team Providers Care Barbecue Cook Name Role Phone Pcp, No Primary Care Provider Unavailabl e Reason for Visit * Reason Comments Routine Visit Patient doing wel l, no issues declines flu vaccine Encounter Details Date Type Department Care Team (Late st Contact Info) Description 08/15/2025 9:00 AM EDT Routine Obstetrics & Gynecology [address] [place] [address] Aren Song MD [address] [place] [address] 25 weeks gestation of (Primary Dx); Velamentous insertion of umbilical cord in second trimester Social History Tobacco Use Types Packs/Day Years Used Date Smoking Tobacco: Former Cigarettes Smokeless Tobacco: Never PHQ-2 Answer Date Recorded Patient Health Questionnaire-2 Score 0 08/15/2025 PHQ-9 Answer Date Recorded Patient Health Questionnaire-9 Score 0 08/15/2025 Estimated Date of Delivery Comme nts Yes [...] Sign Reading Time Taken Comments Blood Pressure 100/67 08/15/2025 8:59 AM EDT Pulse 88 08/15/2025 8:59 AM EDT Temperature 36.6 C (97.9 F) 08/15/2025 8:59 AM EDT Respiratory Rate - - Oxygen Saturation 97% 08/15/2025 8:59 AM EDT Inhaled Oxygen Concentration - - Weight 148 kg (326 lb) 08/15/2025 8:59 AM EDT Height - - Body Mass Index 54.25 07/25/2025 2:26 PM EDT documented in this encounter Functional Status * Over the past 2 weeks, how often have you been bothered by any of the following problems? Question Answer Date of Assessment Author Little interest or pleasure in doing things Not at all 08/15/2025 9:00 AM TIFFANIET Lisette Orr Feeling down, depressed, or hopeless Not at all 08/15/2025 9:00 AM EDT Lisette Orr Patient Health Questionnaire -2 Score 0 08/15/2025 9:00 AM EDT Lisette Orr * Question Answer Date of Assessment Author Trouble falling or staying a sleep, or sleeping too much Not at all 08/15/2025 9:00 AM Lisette Chavez Feeling tired or having cynthia le energy Not at all 08/15/2025 9:00 AM TIFFANIET Lisette Orr Poor appetite or overeating Not at all 08/15/2025 9: 00 AM Lisette Chavez Feeling bad about yourself - or that you are a failure or have let yourself or your family down Not at all 08/15/2025 9:00 AM Lisette Chavez Trouble concentrating on thi ngs, such as reading the newspaper or watching television Not at all 08/15/2025 9:00 AM Lisette Chavez Moving or speaking so slowly that other people could have noticed? Or the opposite - being so fidgety or restless that you have been moving around a lot more than usual. Not at all 08/15/2025 9:00 AM Lisette Chavez Thoughts that you would be b erin off or hurting yourself in some way Not at all 08/15/2025 9:00 AM Lisette Chavez Patient Health Questionnaire -9 Score 0 08/15/2025 9:00 AM EDT Lisette Orr * How difficult have these problems made it for you to do your work, take care of things at home, or get along with other people? Answer Date of Assessment Author Not difficult at all 08/15/2025 9:00 AM Lisette Lopes * How difficult have these problems made it for you to do your work, take care of things at home, or get along with other people? Answer Date of Assessment Author Not difficult at all 08/15/2025 9:00 AM EDLisette Rosado documented as of this encounter Miscellaneous Notes * Progress Notes - Aren Song MD - 08/15/2025 9:00 AM EDT Subjective Chief Complaint Patient presents with Routine Visit Patient doing well, no issues declines flu vaccine Bre Nguyễn is a 25 y.o. at 25w5d with a working estimated date of delivery of 11/23/2025, by Ultrasound who presents for a routine visit. She denies vaginal bleeding, leakage of fluid. +FM NIPT x 2 - Insufficient Cells Her is complicated by: VCI The following portions of the chart were reviewed this encounter and updated as appropriate: Meds Objective Physical Exam Weight: 148 kg (326 lb) Expected Total Weight Gain: Could not be calculated Pregravid BMI: Could not be calculated BP: 100/67 Heart Rate: 140 Fundal Height (cm): 28 cm Labs Urine dip: NA HGB (g/dL) Date/Time Value 06/27/2025 1318 14.6 HCT (%) Date/Time Value 06/27/2025 1318 42.5 ABO/Rh (no units) Date/Time Value 06/27/2025 1318 O Positive Hepatitis B Surf Antigen (no units) Date/Time Value 06/27/2025 1318 Negative No results found for: PAPPA , AFP , HCG , ESTRIOL , INHBA No results found for: GLUF , GLUT1 , [id number] , [id number] Assessment/Plan Assessment & Plan 25 weeks gestation of Velamentous insertion of umbilical cord in second trimester Continue vitamin. Labs reviewed. Labs next visit. Follow up in 3 weeks for a routine visit. documented in this encounter Plan of Treatment Upcoming Encounters Date Type Department Care Team (Late st Contact Info) Description 09/05/2025 11:00 AM EDT Routine Obstetrics & Gynecology [address] [place] [address] Aren Song MD [address] [place] [address] 09/19/2025 9:30 AM EST Routine Obstetrics & Gynecology [address] [place] [address] Aren Song MD [address] [place] [address] 10/03/2025 10:30 AM EST Routine Obstetrics & Gynecology [address] [place] [address] Aren Song MD [address] [place] [address] 10/03/2025 10:40 AM EST Appointment [facility] Ashleigh WEBB Ultrasound [address] [place] [address] documented as of this encounter Goals Goal Patient Goal Type Associated Problems Recent Progress Patient-Stated? Author Delayed Care Plan CPM S24 PP LABOR (OBSTETRICS) No Open Scheduling, Background documented as of this encounter Visit Diagnoses Diagnosis 25 weeks gestation of - Primary Velamentous insertion of umbilical cord in second trimester documented in this encounter Additional Health Concerns Active Problems Noted Date Diagnosed Date CPM S24 PP LABOR (OBSTETRICS) 05/03/2025 Assessment Noted Time PHQ-9 Depression Total Score: 0 08/15/20 9:00 AM EDT A fall risk assessment has been complete d for the patient 08/15/2025 9:00 AM EDT A Body Mass Index follow-up plan has been documented for the patient 08/15/2025 9:27 AM EDT documented as of this encounter Care Teams Barbecue Cook Relationship Specialty Start Date End Date Pcp, No [address] [place] [address] PCP - General Family Medicine 05/02/25 documented as of this encounter
--- OUTSIDE RECORDS SUMMARY | 2025-08-30 02:36 | XMS_ITS | Patient Health Record ---
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 Plan Of Treatment No Information Insurance Providers Payer Name Payer Address Payer Phone Subscriber Number Group Number Insured Name Patient Relationship to Insured Coverage Start Date Coverage End Date [facility] [address] [address] [place], [place] [id number] Anaya Guillory nd Self - patient is the insured 2 Medical (General) History 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 History ICD Code Atrial fibrillation Iron deficiency anemia Surgical History Surgery Date(Month/Year)
--- OUTSIDE RECORDS SUMMARY | 2025-08-30 02:36 | XMS_ITS | Clinical Summary ---
Author Organization Healthcare Address [address] [place] [address] Care Team Providers Care Title Investigator Name Role Phone Pcp, No Primary Care [...] capsule by mouth daily. Active nystatin (Mycostatin) 024898 UNIT/GM powder AAA BID prn 60 g [...] [place] [address] Aren Song MD 25 weeks gestation of (Primary Dx); Velamentous insertion of umbilical cord in second trimester 08/15/2025 Travel 08/05/2025 Refill Obstetrics & Gynecology [address] [place] [address] Aren Song MD Palpitations; Anxiety disorder, unspecified 07/25/2025 1:50 PM EDT - 07/25/2025 11:59 PM EDT Hospital Encounter [facility] Ul[facility] [address] [place] [address] 18 weeks gestation of Discharge Disposition: Home or Self Care 07/25/2025 1:45 PM EDT Routine Obstetrics & Gynecology [address] [place] [address] Aren Song MD 22 weeks gestation of (Primary Dx); Velamentous insertion of umbilical cord in second trimester 07/25/2025 Travel 07/22/2025 Telephone Obstetrics & Gynecology [address] [place] [address] [place] [address] Aren Song MD 06/27/2025 1:15 PM EDT Clinical Support Obstetrics & Gynecology [address] [place] [address] Date of last menstrual period (LMP) unknown (Primary Dx) 06/27/2025 Travel 06/24/2025 1:17 PM EDT - 06/24/2025 11:59 PM EDT Hospital Encounter [facility] [address] [place] [address] 12 weeks gestation of Discharge Disposition: Home or Self Care 06/24/2025 1:00 PM EDT Routine Obstetrics & Gynecology [address] [facility] [place] [address] Aren Song MD 18 weeks gestation of (Primary Dx); Velamentous insertion of umbilical cord in second trimester 06/24/2025 Travel 06/20/2025 Telephone Obstetrics & Gynecology [address] [place] [address] [place] [address] Aren Song MD 06/20/2025 Results Follow-Up Obstetrics & Gynecology [facility] [place] [address] Aren Song MD 06/17/2025 Telephone Obstetrics & Gynecology [address] [place] [address] rAen Song MD 06/14/2025 Telephone Obstetrics & Gynecology [address] [place] [address] Aren Song MD 06/13/2025 3:45 PM EDT Routine Obstetrics & Gynecology [address] [place] [address] Aren Song MD 16 weeks gestation of (Primary Dx); Encounter of female for testing for genetic disease carrier status for procreative management; Yeast vaginitis 06/13/2025 Travel 06/13/2025 Telephone Obstetrics & Gynecology [address] [place] [address] Aren Song MD from Last 3 Months [...] AM EDT Routine Obstetrics & Gynecology [address] [place] [address] Aren Song MD [address] [place] [address] 09/19/2025 9:30 AM EST Routine Obstetrics & Gynecology [address] [place] [address] Aren Song MD [address] [place] [address] 10/03/2025 10:30 AM EST Routine Obstetrics & Gynecology [address] [place] [address] Aren Song MD [address] [place] [address] 10/03/2025 10:40 AM EST Appointment [facility] [address] [place] [address] Health Maintenance Due Date Last Done Comments [facility]-/Child/Adol SDOH Screenings 2001 [facility]- SDOH Screenings 2019 [facility]-Adult SDOH Screenings 2019 [facility]-Pap Smear 2022 [id number] Vaccine ( season) 2025 [facility]-Influenza Vaccine (#1) [...] Please navigate to the Imaging tab in MediaS[employer] for review. This message has been generated by the interface. Narrative Procedure Note Della Ochoa MD - 07/25/2025 IMPRESSION: The OB Ultrasound you requested has been resulted. Please navigate to theImaging tab in MediaSpike for review. This message has been generated by theinterface. Result Elsi Song MD IMG OB US PROCEDURES Final Resu lt * Treponema Pallidum (Syphilis) Antibodies with Reflex to RPR and RPR Titer (Those with NO known Syphilis) (06/27/2025 1:18 PM EDT) Syphilis Antibody (IgG+IgM) Nonreactive Nonreactive 06/27/2025 9:06 PM EDT [facility] Comment:Nonreactive. No sero logic evidence of syphilis. No follow-up necessary unless clinically indicated (e.g., early syphilis). Blood Venous blood specimen / Unknown Venipuncture / Unknown 06/27/2025 1:18 PM EDT 06/27/2025 6:41 PM EDT Result Elsi Song MD LAB BLOOD ORDERABLES Final Resu lt [facility] [address] [place] [address] * Chlamydia trachomatis DNA by PCR (06/27/2025 1:18 PM EDT) [facility] Chlamydia trachomatis DNA PCR Result Not Detected Not Detected 06/28/2025 2:36 PM EDT [facility] Urine Urine specimen obtained by clean catch procedure / Unknown Non-blood Collection / Unknown 06/27/2025 1:18 PM EDT 06/27/2025 6:49 PM EDT Narrative [facility] - 06/28/2025 2:36 PM EDT This test is performed by the [employer] instrument for Real Time PCR C. trachomatis and N. gonorrhea. This test is FDA approved for use with endocervical, vaginal, and urine specimens. This test is used for clinical purposes. It should not be regarded as invesigational or for research. The [facility] Clinical Microbiology Laboratory is certified under the Clinical Laboratory Improvement Amendments of 1988 (CLIA-88) as qualified to perform high complexity clinical laboratory testing. us Aren Song MD LAB MICROBIOLOGY - [facility] Final Result Performing Organization Address City/[facility]/ZIP Co de Phone Number [facility] [address] [place] [address] * HIV 1 & 2 Antibody/Antigen Screen (06/27/2025 1:18 PM EDT) [facility] HIV 1 & 2 Antibody/Antigen Screen Non Reactive Non Reactive 06/27/2025 7:24 PM EDT [facility] Comment:Screening for HIV 1 & 2 antibodies, and P24 antigen is NONREACTIVE. No confirmatory testing is required. Blood Venous blood specimen / Unknown Venipuncture / Unknown 06/27/2025 1:18 PM EDT 06/27/2025 6:41 PM EDT Result Elsi Song MD LAB BLOOD ORDERABLES Final Resu lt Performing Organization Address [facility]/ZIP Co de Phone Number [facility] [address] [place] [address] * Hepatitis C Antibody w/Reflex to HCV Quant PCR (06/27/2025 1:18 PM EDT) [facility] Hepatitis C Antibody Negative Negative 06/27/2025 7:29 PM EDT [facility] Blood Venous blood specimen / Unknown Venipuncture / Unknown 06/27/2025 1:18 PM EDT 06/27/2025 6:40 PM EDT Result Elsi Song MD LAB BLOOD ORDERABLES Final Resu lt [facility] [address] [place] [address] * Drug Abuse Screen, Urine (06/27/2025 1:18 PM EDT) Amphetamine Screen Urine Negative Cutoff: 500 ng/mL 06/27/2025 7:30 PM EDT [facility] Benzodiazepines Screen Urine Negative Cutoff: 200 ng/mL 06/27/2025 7:30 PM EDT [facility] Cannabinoid Screen Urine Negative Cutoff: 50 ng/mL 06/27/2025 7:30 PM EDT [facility] Cocaine Screen Urine Negative Cutoff: 300 ng/mL 06/27/2025 7:30 PM EDT [facility] Barbiturate Screen Urine Negative Cutoff: 200 ng/mL 06/27/2025 7:30 PM EDT [facility] Opiate Screen Urine Negative Cutoff: 300 ng/mL 06/27/2025 7:30 PM EDT [facility] Methadone Screen Urine Negative Cutoff: 300 ng/mL 06/27/2025 7:30 PM EDT [facility] Buprenorphine Screen Urine Negative Cutoff: 10 ng/mL 06/27/2025 7:30 PM EDT [facility] Fentanyl Screen Urine Negative Cutoff: 1 ng/mL 06/27/2025 7:30 PM EDT [facility] Oxycodone Screen Urine Negative Cutoff: 100 ng/mL 06/27/2025 7:30 PM EDT [facility] Urine Urine specimen obtained by clean catch procedure / Unknown Non-blood Collection / Unknown 06/27/2025 1:18 PM EDT 06/27/2025 6:40 PM EDT Result Elsi Song MD LAB URINE ORDERABLES Final Resu lt Performing Organization Address City/[facility]/ZIP Co de Phone Number [facility] [address] [place] [address] * Neisseria gonorrhea DNA by PCR (06/27/2025 1:18 PM EDT) Neisseria gonorrhea DNA PCR Result Not Detected Not Detected. 06/28/2025 2:36 PM EDT [facility] Urine Urine specimen obtained by clean catch procedure / Unknown Non-blood Collection / Unknown 06/27/2025 1:18 PM EDT 06/27/2025 6:49 PM EDT Narrative [facility] - 06/28/2025 2:36 PM EDT This test is performed by the [employer] instrument for Real Time PCR C. trachomatis and N. gonorrhea. This test is FDA approved for use with endocervical, vaginal, and urine specimens. This test is used for clinical purposes. It should not be regarded as invesigational or for research. The [facility] is certified under the Clinical Laboratory Improvement Amendments of 1988 (CLIA-88) as qualified to perform high complexity clinical laboratory testing. Aren Song MD LAB MICROBIOLOGY - GENERAL [facility] Final Result Performing Organization Address [facility] Co de Phone Number [facility] [address] [place] [address] * (ABNORMAL) Rubella Antibody IgG (06/27/2025 1:18 PM EDT) Rubella Antibody IgG Positive(A ) Negative 06/27/2025 10:36 PM EDT [facility] Comment: Rubella IgG Result Interpretation: Negative: [...] MD LAB BLOOD ORDERABLES Final Resu lt [facility] [address] [place] [address] * Hepatitis B Surface Antigen (06/27/2025 1:18 PM EDT) Pathologist [facility] Hepatitis B Surf Antigen Negative Negative 06/27/2025 9:06 PM EDT [facility] Blood Venous blood specimen / Unknown Venipuncture / Unknown 06/27/2025 1:18 PM EDT 06/27/2025 6:41 PM EDT Result Elsi Song MD LAB BLOOD ORDERABLES Final Resu lt Performing Organization Address [facility] Co de Phone Number [facility] [address] [place] [address] * CBC W/O Differential (06/27/2025 1:18 PM EDT) [facility] WBC Count 10.18 3.70 - 10.30 10*3/uL LAB HEMATOLOGY METHOD 06/27/2025 7:14 PM EDT [facility] RBC Count 4.77 3.90 - 5.20 10*6/uL LAB HEMATOLOGY METHOD 06/27/2025 7:14 PM EDT [facility] HGB 14.6 11.2 - 15.7 g/dL LAB HEMATOLOGY METHOD 06/27/2025 7:14 PM EDT [facility] HCT 42.5 34.0 - 45.0 % LAB HEMATOLOGY METHOD 06/27/2025 7:14 PM EDT [facility] Platelet Count 268 155 - 369 10*3/uL LAB HEMATOLOGY METHOD 06/27/2025 7:14 PM EDT [facility] MCV 89 79 - 98 fL LAB HEMATOLOGY METHOD 06/27/2025 7:14 PM EDT [facility] MCH 30.6 26.0 - 32.0 pg LAB HEMATOLOGY METHOD 06/27/2025 7:14 PM EDT [facility] MCHC 34.4 30.7 - 35.5 g/dL LAB HEMATOLOGY METHOD 06/27/2025 7:14 PM EDT [facility] RDW 13.3 11.5 - 14.5 % LAB HEMATOLOGY METHOD 06/27/2025 7:14 PM EDT [facility] MPV 11.8 8.8 - 12.5 fL LAB HEMATOLOGY METHOD 06/27/2025 7:14 PM EDT [facility] nRBC 0.0 <=0.0 per 100 WBCs LAB HEMATOLOGY METHOD 06/27/2025 7:14 PM EDT [facility] Blood Venous blood specimen / Unknown Venipuncture / Unknown 06/27/2025 1:18 PM EDT 06/27/2025 6:41 PM EDT us Aren Song MD LAB BLOOD ORDERABLES Final Resu lt Performing Organization Address [facility] Co de Phone Number [facility] [address] [place] [address] * Type and Screen (06/27/2025 1:18 PM [...] TEST ORDERABLES Final Result Performing Organization Address [facility] Co de Phone Number BLOOD BANK [address] [place] [address], * Urine Culture (06/27/2025 1:18 PM EDT) Culture <10,000 CFU/mL Mixed urogenital, fecal, or skin alesia present. 06/28/2025 4:51 PM EDT [facility] Urine Urine specimen obtained by clean catch procedure / Unknown Non-blood Collection / Unknown 06/27/2025 1:18 PM EDT 06/27/2025 6:49 PM EDT us Aren Song MD LAB MICROBIOLOGY - [facility] Final Result [facility] [address] [place] [address] * OB US 14+ Weeks Anatomy Scan (06/24/2025 1:49 PM EDT) Anatomical Region Laterality Modality Body Ultrasound 06/24/2025 1:15 PM EDT Impressions 06/26/2025 6:45 PM EDT The OB Ultrasound you requested has been resulted. Please navigate to the Imaging tab in [employer] for review. This message has been generated by the interface. Narrative Procedure Note Don Anderson MD - 06/26/2025 IMPRESSION: The OB Ultrasound you requested has been resulted. Please navigate to theImaging tab in MediaSpike for review. This message has been generated by theCloakwareface. us Aren Song MD IMG OB US [...] Disclaimers, and further information. Test performed by [facility]. : [address] [facility], [address], [place] [address] CLIA ID #[id number] CLIA Mail Censor: Javier Tony, Ph.D., [facility] Blood Venous blood specimen / Unknown Venipuncture / Unknown 06/13/2025 4:49 PM EDT 06/13/2025 4:50 PM EDT us Aren Song MD [facility] BLOOD ORDERABLES Final R esult [facility] [address] [place] [address], * PANORAMA TEST (06/13/2025 4:49 PM EDT) [...] [facility] TRISOMY 21 AGE-BASED RISK TEXT 1,200 (0.08%) 06/20/2025 9:46 AM EDT [facility] TRISOMY 21 RISK SCORE TEXT N/A 06/20/2025 9:46 AM EDT [facility] TRISOMY 18 RESULT TEXT No Result 06/20/2025 9:46 AM EDT [facility] TRISOMY 18 AGE-BASED RISK TEXT 3,590 (0.03%) 06/20/2025 9:46 AM EDT [facility] [...] from single nucleotide polymorphism-based (SNP-based) next-generation sequencing [Perguille E et al. Obstet Gynecol. 2014 Jun;124(2 Pt 1):210-8]. If there is sufficient fraction, [...] sufficient [Michael Godinez et al. Obstet Gynecol 202;145:1?7]. However, some samples will not produce a [...] sequencing of this test were performed by [facility]., [id number] [place] [address] [address], [place] [address] (CLIA ID [id number]). The data analysis and reporting of this test were performed by [facility] [address], [place] [address] (CLIA ID [id number]). The performance characteristics of this test were developed by [facility].(CLIA ID [id number]). This test has not been cleared or approved by the U.S. Food and Drug Administration (FDA). These laboratories are regulated under CLIA as qualified to perform high-complexity testing. 2024 [facility]. All Rights Reserved. Please refer to the attached PDF report Reviewed By: Sole Webb M.D., Ph.D., [facility], Senior Tube Trailer Filler [facility] Mail Censor: Javier Tony, Ph.D., [facility] IF THE ORDERING PROVIDER HAS QUESTIONS OR WISHES TO DISCUSS THE RESULTS, PLEASE CONTACT US AT [phone] #3. Ask for the NIPT genetic counselor contact center representative. Blood Venous blood specimen / Unknown Venipuncture / Unknown 06/13/2025 4:49 PM EDT 06/13/2025 4:50 PM EDT us Aren [facility] BLOOD ORDERABLES Final R esult [facility] [address] [place] [address], from Last 3 Months Additional Health Concerns Active Problems Noted Date Diagnosed Date CPM S24 PP LABOR (OBSTETRICS) 05/03/2025 Insurance [facility] MEDICAID Care Teams Title Investigator Relationship Specialty Start Date End Date Pcp, No [address] [place] [address] PCP - General Family Medicine 05/02/25
--- OUTSIDE RECORDS SUMMARY | 2025-08-30 02:37 | XMS_ITS | Encounter Summary ---
Author Organization Healthcare Address [address] [place] [address] Care Team Providers Care Oil Treater Name Role Phone Pcp, No Primary Care [...] AM EDT Routine Obstetrics & Gynecology [address] [place] [address] Aren Song MD [address] [place] [address] 09/19/2025 9:30 AM EST Routine Obstetrics & Gynecology [address] [place] [address] Aren Sogn MD [address] [place] [address] 10/03/2025 10:30 AM EST Routine Obstetrics & Gynecology [address] [place] [address] Aren Song MD [address] [place] [address] 10/03/2025 10:40 AM EST Appointment [facility] [address] [place] [address] documented as of this encounter Goals Goal [...] documented as of this encounter Care Teams Oil Treater Relationship Specialty Start Date End Date Pcp, No [address] [place] [address] PCP - General Family Medicine 05/02/25 documented as of this encounter
--- OUTSIDE RECORDS SUMMARY | 2025-08-30 02:37 | XMS_ITS | Encounter Summary ---
Author Organization Healthcare Address [address] [place] [address] Care Team Providers Care Line Helper Name Role Phone Pcp, No Primary Care Provider Unavailabl e Encounter Details Date Type Department Care Team (Late st Contact Info) Description 05/23/2025 Results Follow-Up Obstetrics & Gynecology [address] [place] [address] Aren Song MD [address] [place] [address] Social History Tobacco Use Types [...] AM EDT Routine Obstetrics & Gynecology [address] [place] [address] Aren Song MD [address] [place] [address] 09/19/2025 9:30 AM EST Routine Obstetrics & Gynecology [address] [place] [address] Aren Song MD [address] [place] [address] 10/03/2025 10:30 AM EST Routine Obstetrics & Gynecology [address] [place] [address] Aren Song MD [address] [place] [address] 10/03/2025 10:40 AM EST Appointment [facility] Ash[facility] Ultrasound [address] [place] [address] documented as of this encounter Goals Goal [...] documented as of this encounter Care Teams Line Helper Relationship Specialty Start Date End Date Pcp, [place] [address] PCP - General Family Medicine 05/02/25 documented as of this encounter
--- OUTSIDE RECORDS SUMMARY | 2025-08-30 02:37 | XMS_ITS | Encounter Summary ---
Author Organization Healthcare Address [address] [place] [address] Care Team Providers Care Hearth Feeder Name Role Phone Pcp, No Primary Care Provider Unavailabl e Reason for Visit * Reason Comments Med Refill Encounter Details Date Type Department Care Team (Late st Contact Info) Description 08/05/2025 Refill Obstetrics & Gynecology [address] [place] [address] Aren Song MD [address] [place] [address] Palpitations; Anxiety disorder, unspecified Social [...] EDT Routine [facility] [address] [place] [address] Aren Song MD [address] [place] [address] 09/19/2025 9:30 AM EST Routine Obstetrics & Gynecology [address] [place] [address] Aren Song MD [address] [place] [address] 10/03/2025 10:30 AM EST Routine Obstetrics & Gynecology [address] [place] [address] Aren Song MD [address] [place] [address] 10/03/2025 10:40 AM EST Appointment [facility] Ultrasound [address] [place] [address] documented as of this encounter Goals Goal [...] documented as of this encounter Care Teams Hearth Feeder Relationship Specialty Start Date End Date Pcp, No [address] [place] [address] PCP - General Family Medicine 05/02/25 documented as of this encounter
--- OUTSIDE RECORDS SUMMARY | 2025-08-30 02:37 | XMS_ITS | Encounter Summary ---
Author Organization Healthcare Address [address] [place] [address] Care Team Providers Care Microbiology Supervisor Name Role Phone Pcp, No Primary Care Provider Unavailabl e Encounter Details Date Type Department Care Team (Late st Contact Info) Description 07/22/2025 Telephone Obstetrics & Gynecology [address] [place] [address] Aren Song MD [address] [place] [address] Social History Tobacco Use Types [...] AM EDT Routine Obstetrics & Gynecology [address] [place] [address] Aren Song MD [address] [place] [address] 09/19/2025 9:30 AM EST Routine Obstetrics & Gynecology [address] [place] [address] Aren Song MD [address] [place] [address] 10/03/2025 10:30 AM EST Routine Obstetrics & Gynecology [address] [place] [address] Aren Song MD [address] [place] [address] 10/03/2025 10:40 AM EST Appointment [facility] Ul[facility] [address] [place] [address] documented as of this encounter Goals Goal [...] documented as of this encounter Care Teams Microbiology Supervisor Relationship Specialty Start Date End Date Pcp, No [address] [place] [address] PCP - General Family Medicine 05/02/25 documented as of this encounter
--- OUTSIDE RECORDS SUMMARY | 2025-08-30 02:37 | XMS_ITS | Encounter Summary ---
Author Organization Healthcare Address [address] [place] [address] Care Team Providers Care Software Quality Manager Name Role Phone Pcp, No Primary Care Provider Unavailabl e Encounter Details Date Type Department Care Team (Late st Contact Info) Description 06/17/2025 Telephone Obstetrics & Gynecology [address] [place] [address] Aren Song MD [address] [place] [address] Social History Tobacco Use Types [...] Godinez - 06/17/2025 4:26 PM EDT Called Pameal back and pt has already had the H14 done. I let her know that they can cancel the test. * Telephone Encounter - Brooklynn Osorio - 06/17/2025 4:09 PM EDT Clinical Concern/Question Reason for Call: Pamela has a question for a nurse Best contact number: Other: [phone] Josephine Optimal time of day to reach [...] Upcoming Encounters Date Type Department Care Team ([facility] st Contact Info) Description 09/05/2025 11:00 AM EDT Routine Obstetrics & Gynecology [address] [place] [address] Aren Song MD [address] [place] [address] 09/19/2025 9:30 AM EST Routine Obstetrics & Gynecology [address] [place] [address] Aren Song MD [address] [place] [address] 10/03/2025 10:30 AM EST Routine Obstetrics & Gynecology [address] [place] [address] Aren Song MD [address] [place] [address] 10/03/2025 10:40 AM EST Appointment [facility] Ul[facility] [address] [place] [address] documented as of this encounter Goals Goal [...] documented as of this encounter Care Teams Software Quality Manager Relationship Specialty Start Date End Date Pcp, Brittany [address] [place] [address] PCP - General Family Medicine 05/02/25 documented as of this encounter
--- OUTSIDE RECORDS SUMMARY | 2025-08-30 02:37 | XMS_ITS | Patient Health Record ---
Author Organization [facility] Address [address] [place] [address] Care Team Providers Care Manager Of Administration Name Role Phone LOWELL MCNAMARA Primary Care Provider [phone] Allergies Allergen (clinical drug ingredient) Drug/Non Drug [...] Risk Notes Problem Major depression, single episode (75971967) Major depressive disorder, single episode, unspecified (F32.9) Active confirmed Problem Anxiety disorder (234415025) Anxiety disorder, unspecified (F41.9) Active confirmed Problem Hesitancy of micturition (8124973) Hesitancy of micturition (R39.11) Active confirmed Problem Obesity (564247059) Obesity, unspecified (E66.9) Active confirmed Problem Attention deficit hyperactivity disorder (427939672) Attention-deficit hyperactivity disorder, predominantly hyperactive type (F90.1) Active confirmed Problem Tension-type headache (662055211) Tension-type headache, unspecified, not intractable (G44.209) Active confirmed Problem Constipation (07729175) Constipation, unspecified (K59.00) Active confirmed Problem Scoliosis (138523791) Scoliosis, unspecified (M41.9) Active confirmed Problem Urinary incontinence (060920551) Unspecified urinary incontinence (R32) Active confirmed Plan Of Treatment Pending Test Test Name Order Date Flu Test 11/25/2017 Strep Test 11/25/2017 Insurance Providers Payer Name Payer Address Payer Phone Subscriber Number Group Number Insured Name Patient Relationship to Insured Coverage Start Date Coverage End Date [employer] [address] [place] [address] [id number] Anaya Nguyễn Self - patient is the insured [employer] MEDICA[employer] [address] [place] [address] [id number] Anaya Nguyễn Self - patient is the insured Medical (General) History 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 History ICD Code Constipation, unspecified K59.00 Scoliosis, unspecified M41.9 Surgical History Surgery Date(Month/Year) oral surgery episitomy Hospitalization History Reason Date(Month/Year) vaginal x 1
--- OUTSIDE RECORDS SUMMARY | 2025-08-30 02:37 | XMS_ITS | Encounter Summary ---
Author Organization Healthcare Address [address] [place] [address] Care Team Providers Care Aviation Maintenance Technician Name Role Phone Pcp, No Primary [...] Routine Obstetrics & Gynecology [address] [place] [address] Aren Song MD [address] [place] [address] 09/19/2025 9:30 AM EST Routine [facility] [address] [place] [address] Aren Song MD [address] [place] [address] 10/03/2025 10:30 AM EST Routine Obstetrics & Gynecology [address] [place] [address] Aren Song MD [address] [place] [address] 10/03/2025 10:40 AM EST Appointment [facility] [address] [place] [address] documented as of this encounter Goals Goal [...] documented as of this encounter Care Teams Aviation Maintenance Technician Relationship Specialty Start Date End Date Pcp, Brittany [address] [place] [address] PCP - General Family Medicine 05/02/25 documented as of this encounter
--- OUTSIDE RECORDS SUMMARY | 2025-08-30 02:37 | XMS_ITS | Patient Health Record ---
Author Organization [facility] Address [address] [place] [address] Care Team Providers Care Interior Systems Carpenter Name Role Phone Deloris Kaba Unavailable [phone] Allergies Allergen (clinical drug ingredient) Drug/Non Drug [...] Risk Notes Problem Pelvic and perineal pain (682152899) Abdominal pain, suprapubic (R10.2) Active confirmed Pelvic Pain Problem Pain in female genitalia on intercourse (82650744) Coitus painful for female (N94.10) Active confirmed Unspecified dyspareunia Problem Surveillance of contraception (189419437) Chooses not to have children (Z30.9) 017 Active confirmed Contraception management Problem Exposure to sexually transmissible disorder (361952372) Chlamydia contact (Z20.2) Active confirmed Contact with and (suspected) exposure to infections with a predominantly sexual mode of transmission Plan Of Treatment No Information Medical (General) History 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 History ICD Code HEART MURMUR ACID REFLUX ANXIETY BREAST PAIN CHRONIC PELVIC PAIN Provera 10 mg tablet, BY MOUTH Surgical History Surgery Date(Month/Year) DENIES
--- OUTSIDE RECORDS SUMMARY | 2025-08-30 02:37 | XMS_ITS | Encounter Summary ---
Author Organization Healthcare Address [address] [place] [address] Care Team Providers Care Waste Disposal Leakage Tester Name Role Phone Pcp, No Primary Care Provider Unavailabl e Encounter Details Date Type Department Care Team (Late st Contact Info) Description 06/20/2025 Results Follow-Up Obstetrics & Gynecology [address] [place] [address] Aren Song MD [address] [place] [address] Social History Tobacco Use Types [...] Questionnaire -2 Score 0 08/15/2025 9:00 AM Lisette Chavez * Question Answer Date of Assessment Author Trouble falling or staying asleep, or sleeping too much Not at all [...] Not at all 08/15/2025 9:00 AM Lisette Lopes Trouble concentrating on thi ngs, such as [...] 0 08/15/2025 9:00 AM Lisette Chavez * Calculated C-SSRS Risk Score (Lifetime/Recent) Answer Date of Assessment Author No Risk Indicated 07/25/2025 2:30 PM EDT Sherrie Daily * How difficult have these problems made it for you to do your work, take care of things at home, or get along with other people? Answer Date of Assessment Author Not difficult at all 08/15/2025 9:00 AM Lisette Cunha * How difficult have these problems made it for you to do your work, take care of things at home, or get along with other people? Answer Date of Assessment Author Not difficult at all 08/15/2025 9:00 AM Lisette Lopes * Question Answer Date of Assessment Author 1. Wish to be (Past 1 Month) No 025 2:30 PM EDT Christi Daily F 2. Non-Specific Active Suici buzz Thoughts (Past 1 Month) No 07/25/2025 2:30 PM EDT Christi Daily F 6. Suicidal Behavior (Lifetime) No 2:30 PM EDT Christi Daily documented as of this encounter Miscellaneous Notes * Telephone Encounter - JoseTeodorabrigette Burns - 06/24/2025 3:11 PM EDT Clinical Concern/Question Reason for Call: Pt is calling concerning her labs being transferred, Pt states she was called and she sent Dr. Song a message through [employer]. Please call back with any questions. Best contact number: [phone] (mobile) Optimal time of day to reach [...] will receive notification of the communication/outcome via [employer]. documented in this encounter Plan of Treatment Upcoming Encounters Date Type Department Care Team (Late st Contact Info) Description 09/05/2025 11:00 AM EDT Routine Obstetrics & Gynecology [address] [place] [address] Aren Song MD [address] [place] [address] 09/19/2025 9:30 AM EST Routine Obstetrics & Gynecology [address] [place] [address] Aren Song MD [address] [place] [address] 10/03/2025 10:30 AM EST Routine [facility] [address] [place] [address] Aren Song MD [address] [place] [address] 10/03/2025 10:40 AM EST Appointment [facility] Ultrasound [address] [place] [address] documented as of this encounter Goals Goal [...] documented as of this encounter Care Teams Waste Disposal Leakage Tester Relationship Specialty Start Date End Date Pcp, Brittany [address] [place] [address] PCP - General Family Medicine 05/02/25 documented as of this encounter
--- OUTSIDE RECORDS SUMMARY | 2025-08-30 02:37 | XMS_ITS | Clinical Summary ---
Author Organization [facility] Address [address] [place] [address] Care Team Providers Care Floor Specialist Name Role Phone System, Provider Not In [...] Type Department Care Team Description 06/15/2025 Refill [facility] [address] [facility] [address] [place] [address] Brianne Hendrix APRN Med Refill [...] Negative Swab Specimen from vagina / Unknown [facility] Provider MICROBIOLOGY - GENERAL OR DERABLES Final Result from Last 3 Months or Most Recently Relevant to Health [place] [address] [place] [address] [employer] [place]ICA[place] Advance Directives * Full Code (Latest Code Status on File) Date Activated Date Inactivated Comments 02/26/2017 11:59 PM 02/28/2017 7:43 PM * Full Code Date Activated Date Inactivated Comments 02/26/2017 12:22 PM 02/26/2017 11:59 PM Care Teams Floor Specialist Relationship Specialty Start Date End Date System, [place] [address] PCP - General 10/02/20
[2025-08-30 02:45] VITALS: BMI 53.7
[2025-08-30 02:55] VITALS: BMI 53.7
[2025-08-30 03:26] LABS: Microscopic, Urine URINE MICROSCOPIC (MICROSCOPIC)
[2025-08-30 03:28] LABS: Bilirubin,Urine Negative (Negative); Color,Urine YELLOW (Yellow); Glucose,Urine (UA) Negative (Negative); Ketones,Urine Negative (Negative); Leukocyte Esterase,Urine TRACE (Negative); PH,Urine 6.0 (5.0-8.5); Protein,Urine Negative (Negative); Specific Gravity, Urine 1.010 (1.005-1.030); Urobilinogen,Urine 0.2 EU/dl (0.2)
[2025-08-30 03:38] LABS: Bacteria,Urine 1+ /lpf; Mucus,Urine Trace /lpf; RBC,Urine Occasional #/hpf (0-3); Sperm,Urine 1+ /lpf
== END 2025-08-30 03:47 | disposition home or self-care (01) ==
LOC: OBOUT 02:35 → OB 02:36
PROVIDERS: Visit Provider Obstetrics & Gynecology
DX: O46.92 Antepartum hemorrhage, unspecified, second trimester (principal); Z36.9 Encounter for antenatal screening, unspecified; Z3A.27 27 weeks gestation of pregnancy
CPT/HCPCS: 59025; 81001; 99212; G0463